=== PATIENT | male | born 1935 | race Caucasian/White ===

== ENCOUNTER 2016-08-29 13:00 | Inpatient (IN) | payer OTHER, MEDICARE ==
[~2016-08-29] VITALS: Ht 175.3 cm; Wt 46.0 kg
[~2016-08-29 13:00] MED LIST: CILO100T PO; GLIM1TAB PO; GLUCTAB PO; LISI-366 PO
[2016-08-29 13:15] VITALS: BP 121/65; PULSE 87; RESP 18; TEMP 98.8; O2SAT 97
[2016-08-29] MEDS ORDERED: DIATRIZOATE MEGLUM/DIATRIZOATE SOD 9 ML CUP ONE (13:46)
--- NOTE | 2016-08-29 13:47 | PD ---
HPI Chief Complaint: Neuro Symptoms/ Deficits Time Seen by Provider: 13:14 Travel History International Travel<30 days: No Contact w/Intl Traveler<30days: No Traveled to known affect area: No History of Present Illness HPI Patient is a 81-year-old male who presents the emergency department with complaint of weakness. Patient claims of generalized weakness, abdominal pain and diarrhea. Unclear how long these symptoms have been going on, patient is a poor historian. States that they have been going on at least more than one week. He denies any focal weakness. States that he isn't having difficulty ambulating as a result of his weakness. Patient lives in his own home with someone who is actually hospitalized here at the time. Patient states his pain is low in the abdomen and radiates throughout the back, crampy in nature. Associated diarrhea. No hematochezia. He denies any nausea or vomiting, fevers or chills. PFSH Past Medical History Cancer: No Cardiovascular Problems: Yes (PAD) High Cholesterol: Yes Coronary Artery Disease: Yes Diabetes: Yes Patient Takes Glucophage: Yes Glaucoma: No Hepatitis: Yes (A & B) Hiatal Hernia: No Hypertension: Yes Respiratory: Yes (COPD) Thyroid Disease: No Tetanus Vaccination: > 5 Years Past Surgical History Abdominal Surgery: Yes (WHIPPLE) Cholecystectomy: Yes Oral Surgery: Yes (T & A) Pacemaker: No Other Surgery: Yes Social History Alcohol Use: Yes ( DAILY) Tobacco Use: Yes (1-2 PPD) Substance Use: No Allergies-Medications (Allergen,Severity, Reaction): Coded Allergies: Sulfa (Unverified Allergy, Unknown, 08/29/16) Reported Meds & Prescriptions Reported Meds & Active Scripts Active Reported Pletal 100 Mg Tab (Cilostazol) 100 Mg Tab 100 Mg PO BID Lisinopril 40 Mg Tab 40 Mg PO DAILY Glimepiride 1 Mg Tab 1 Mg PO DAILY Glucophage (Metformin HCl) 500 Mg Tab 1,000 Mg PO BID Review of Systems Except as stated in HPI: all other systems reviewed are Neg Physical Exam Narrative GENERAL: Cachectic elderly male appearing older than stated age in no acute distress SKIN: Warm and dry. HEAD: Normocephalic. EYES: Pupils equal and round. No scleral icterus. No injection or drainage. ENT: No nasal bleeding or discharge. Mucous membranes dry NECK: Supple CARDIOVASCULAR: Regular rate and rhythm. No murmur appreciated. RESPIRATORY: No accessory muscle use. Clear to auscultation. Breath sounds equal bilaterally. GASTROINTESTINAL: Abdomen soft, all diffuse tenderness to palpation without rebound or guarding, nondistended. Scaphoid MUSCULOSKELETAL: Chronic venous stasis changes. No obvious deformity, no significant edema NEUROLOGICAL: Awake and alert. 4+ out of 5 strength throughout. Grossly nonfocal. Normal speech. PSYCHIATRIC: Appropriate mood and affect; insight and judgment normal. Data Data Last Documented VS Vital Signs Date Time Temp Pulse Resp B/P Pulse Ox O2 Delivery O2 Flow Rate FiO2 08/29/16 13:15 98.8 87 18 121/65 97 Orders Electrocardiogram (08/29/16 13:15) Complete Blood Count With Diff (08/29/16 13:15) Comprehensive Metabolic Panel (08/29/16 13:15) Lactic Acid Sepsis Protocol (08/29/16 13:15) Lipase (08/29/16 13:15) Troponin I (08/29/16 13:15) Urinalysis - C+S If Indicated (08/29/16 13:15) Blood Culture (08/29/16 13:15) Chest, Single Ap (08/29/16 13:15) Ecg Monitoring (08/29/16 13:15) Iv Access Insert/Monitor (08/29/16 13:15) Cath For Specimen (08/29/16 13:15) Oximetry (08/29/16 13:15) Ct Abd/Pel W Iv Contrast(Rout) (08/29/16 13:15) Oral Contrast - Adult (08/29/16 13:21) Diatrizoate Liq ( Gastroview Liq) (08/29/16 13:46) Sodium Chlor 0.9% 1000 Ml Inj (Ns 1000 M (08/29/16 14:00) Dextrose 50% In [place] (Vial) Inj (D50w (Vi (08/29/16 14:30) Potassium Chloride (Kcl) (08/29/16 14:45) Iohexol 350 Inj (Omnipaque 350 Inj) (08/29/16 15:35) Labs Laboratory Tests Test 08/29/16 08/29/16 13:10 15:40 White Blood Count 13.0 TH/MM3 Red Blood Count 3.76 MIL/MM3 Hemoglobin 12.2 GM/DL Hematocrit 36.9 % Mean Corpuscular Volume 98.1 FL Mean Corpuscular Hemoglobin 32.5 PG Mean Corpuscular Hemoglobin 33.2 % Concent Red Cell Distribution Width 13.9 % Platelet Count 101 TH/MM3 Mean Platelet Volume 12.1 FL Neutrophils (%) (Auto) 85.6 % Lymphocytes (%) (Auto) 7.0 % Monocytes (%) (Auto) 7.3 % Eosinophils (%) (Auto) 0.0 % Basophils (%) (Auto) 0.1 % Neutrophils # (Auto) 11.2 TH/MM3 Lymphocytes # (Auto) 0.9 TH/MM3 Monocytes # (Auto) 1.0 TH/MM3 Eosinophils # (Auto) 0.0 TH/MM3 Basophils # (Auto) 0.0 TH/MM3 CBC Comment AUTO DIFF Differential Total Cells 100 Counted Neutrophils % (Manual) 67 % Band Neutrophils % 22 % Lymphocytes % 6 % Monocytes % 5 % Neutrophils # (Manual) 11.6 TH/MM3 Differential Comment FINAL DIFF MANUAL Platelet Estimate LOW Platelet Morphology Comment NORMAL Red Cell Morphology Comment NORMAL Sodium Level 146 MEQ/L Potassium Level 2.6 MEQ/L Chloride Level 109 MEQ/L Carbon Dioxide Level 28.5 MEQ/L Anion Gap 9 MEQ/L Blood Urea Nitrogen 9 MG/DL Creatinine 0.72 MG/DL Estimat Glomerular Filtration 105 ML/MIN Rate Random Glucose 45 MG/DL Lactic Acid Level 1.9 mmol/L Calcium Level 7.5 MG/DL Total Bilirubin 0.5 MG/DL Aspartate Amino Transf 83 U/L (AST/SGOT) Alanine Aminotransferase 46 U/L (ALT/SGPT) Alkaline Phosphatase 173 U/L Troponin I 0.06 NG/ML Total Protein 5.1 GM/DL Albumin 2.2 GM/DL Lipase 22 U/L Urine Color YELLOW Urine Turbidity CLEAR Urine pH 5.0 Urine Specific [place] 1.030 Urine Protein NEG mg/dL Urine Glucose (UA) NEG mg/dL Urine Ketones NEG mg/dL Urine Occult Blood SMALL Urine Nitrite NEG Urine Bilirubin NEG Urine Urobilinogen LESS THAN 2.0 MG/DL Urine Leukocyte Esterase NEG Urine RBC 1 /hpf Urine WBC 3 /hpf Urine Squamous Epithelial <1 /hpf Cells Urine Hyaline Casts 1 /lpf Urine Mucus FEW /lpf Microscopic Urinalysis Comment CATH-CULT NOT IND MDM Medical Decision Making Medical Screen Exam Complete: Yes Emergency Medical Condition: Yes Medical Record Reviewed: Yes Differential Diagnosis 81-year-old male with history of COPD, DM here with complaint of generalized abdominal pain, diarrhea and generalized weakness for at least the last week. Cachectic, scaphoid abdomen. Patient is chronically ill-appearing. Differential includes failure to thrive, dehydration, elect to light abnormality , pancreatitis, hepatobiliary pathology, infectious diarrhea, colitis, diverticulitis, UTI Narrative Course Placed on monitor, IV established and blood obtained. A twelve-lead EKG shows atrial fibrillation with left axis deviation. No notable ST abnormalities, normal intervals. Wavy baseline, patient has resting Baseline tremor which makes it difficult to obtain quality EKG. Patient given 1 L normal saline bolus. CBC, CMP, lipase, lactate, troponin, urinalysis, blood cultures obtained and notable for CBC 13.0, platelets 101. Patient has bandemia with neutrophils 22%. Hypokalemia potassium 2.6. Patient was replaced with 60 mEq orally. Glucose low at 45 and given D50. Troponin slightly elevated 0.06. Lactate and urine normal. CT abdomen and pelvis showed postsurgical changes status post Whipple with pneumobilia. Nonspecific bowel gas pattern may represent ileus or gastroenteritis. Status post cholecystectomy. Diffuse ascitic fluid and anasarca. Chest x-ray unremarkable. Given his bandemia with elevated troponin and patient will be admitted for further management. Diagnosis Primary Impression: Bandemia Additional Impressions: Elevated troponin Hypokalemia Hypoglycemia Generalized weakness Failure to thrive in adult Admitting Information Admitting Physician Requests: Admit Alisson Rios MD Aug 29, 2016 13:46
[2016-08-29 13:49] LABS: AUTOMATED NEUTROPHIL # 11.2 TH/MM3 (1.8-7.7); BASOPHIL % 0.1 % (0.0-2.0); HEMATOCRIT 36.9 % (39.0-51.0); LYMPHOCYTE # 0.9 TH/MM3 (1.0-4.8); MEAN CELL VOLUME 98.1 FL (80.0-100.0); MEAN CORPUSCULAR HEMOGLOBIN 32.5 PG (27.0-34.0); MEAN CORPUSCULAR HGB CONC 33.2 % (32.0-36.0); MONO % 7.3 % (0.0-8.0); NEUT % 85.6 % (16.0-70.0); PLATELET COUNT 101 TH/MM3 (150-450); RED BLOOD COUNT 3.76 MIL/MM3 (4.50-5.90); RED CELL DISTRIBUTION WIDTH 13.9 % (11.6-17.2)
[2016-08-29 13:51] LABS: HEMO FLAGS AUTO DIFF
[2016-08-29] MEDS ORDERED: SODIUM CHLOR 0.9% 1000 ML INJ 1,000 ML IV ONE (14:00)
--- NOTE | 2016-08-29 14:05 | RADRPT ---
EXAM DATE/TIME: 08/29/2016 13:29 [facility] COMPARISON: CHEST SINGLE AP, May 28, 2012, 18:59. INDICATIONS : Shortness of breath. Cough. MEDICAL HISTORY : None. SURGICAL HISTORY : None. ENCOUNTER: Initial ACUITY: 1 day PAIN SCORE: 0/10 LOCATION: Bilateral chest FINDINGS: A single view of the chest demonstrates the lungs to be symmetrically aerated without evidence of mas s, infiltrate or effusion. The cardiomediastinal contours are unremarkable. Atherosclerotic calcifi cations are present in the aorta. Osseous structures are intact. CONCLUSION: No acute disease. There is no evidence of pneumonia. Héctor Reardon MD on August 29, 2016 at 14:02 Board Certified Radiologist. This report was verified electronically.
[2016-08-29 14:20] LABS: ALKALINE PHOSPHATASE 173 U/L (45-117); ALT (GPT) 46 U/L (12-78); ANION GAP 9 MEQ/L (5-15); AST (GOT) 83 U/L (15-37); BICARBONATE 28.5 MEQ/L (21.0-32.0); BLOOD UREA NITROGEN 9 MG/DL (7-18); CHLORIDE 109 MEQ/L (98-107); GLOMERULAR FILTRATION RATE 105 ML/MIN (>89); SODIUM (NA) 146 MEQ/L (136-145); TOTAL BILIRUBIN ADULT 0.5 MG/DL (0.2-1.0)
[2016-08-29 14:22] LABS: BANDS 22 % (0-6); NEUTROPHIL # MANUAL DIFF 11.6 TH/MM3 (1.8-7.7); PLATELET ESTIMATE SMEAR LOW (NORMAL); PLATELET MORPHOLOGY NORMAL (NORMAL); POLYS (SEG NEUTROPHILS) 67 % (16-70); SCAN/DIFF FINAL DIFF MANUAL; WBC DIFF SAMPLE 100
[2016-08-29 14:29] LABS: POTASSIUM 2.6 MEQ/L (3.5-5.1)
[2016-08-29] MEDS ORDERED: DEXTROSE 50% IN WATER 50 ML VIAL(D50) IV PUSH ONE (14:30)
[2016-08-29] MEDS ORDERED: POTASSIUM CHLORIDE 20 MEQ CONTROLLED RELEASE TAB PO ONE (14:45)
[2016-08-29] MEDS ORDERED: IOHEXOL 350 MG/ML 10 ML VIAL (for RAD DIAG) IV ONE (15:35)
--- NOTE | 2016-08-29 15:41 | RADRPT ---
EXAM DATE/TIME: 08/29/2016 15:17 [facility] COMPARISON: No previous studies available for comparison. INDICATIONS : Abdomen pain and diarrhea IV CONTRAST: 95 cc Omnipaque 350 (iohexol) IV ORAL CONTRAST: Prescribed oral contrast ingested. RADIATION DOSE: 9.96 CTDIvol (mGy) MEDICAL HISTORY : Hypertension. Diabetes mellitus type 1. Chronic obstructive pulmonary disease. SURGICAL HISTORY : Cholecystectomy. Whipple procedure. ENCOUNTER: Initial ACUITY: 2 days PAIN SCALE: 0/10 LOCATION: Abdomen TECHNIQUE: Volumetric scanning of the abdomen and pelvis was performed. Using automated exposure control and ad justment of the mA and/or kV according to patient size, radiation dose was kept as low as reasonably achievable to obtain optimal diagnostic quality images. FINDINGS: LOWER LUNGS: The visualized lower lungs are clear. LIVER: The patient is status post cholecystectomy with surgical clips in the region of the abiola hepatis. Pn eumobilia is present in the central biliary system and left ducts. The portal venous system is patent . There is diffuse fatty infiltration of liver with no focal mass. There is diffuse ascites and anasa rca. SPLEEN: Normal size without lesion. PANCREAS: There are postsurgical changes status post Whipple procedure with no distinct pancreatic tissue which is identifiable. KIDNEYS: Normal in size and shape. There is no mass, stone or hydronephrosis. ADRENAL GLANDS: Within normal limits. VASCULAR: There is no aortic aneurysm. BOWEL/MESENTERY: There is diffuse ascitic fluid throughout the abdomen and pelvis. There is a nonspecific bowel gas pa ttern with multiple loops of nondilated air-containing small bowel with several air fluid levels. The re is borderline dilatation of several loops of small bowel in the right abdomen. There is no free ai r. ABDOMINAL WALL: Within normal limits. RETROPERITONEUM: There is no lymphadenopathy. BLADDER: No wall thickening or mass. REPRODUCTIVE: Within normal limits. INGUINAL: There is no lymphadenopathy or hernia. MUSCULOSKELETAL: Within normal limits for patient age. CONCLUSION: 1. Postsurgical changes status post Whipple procedure with pneumobilia. The pancreas is not well-visu alized. 2. Nonspecific bowel gas pattern which may represent an ileus or gastroenteritis. Obstruction is less likely. 3. Status post cholecystectomy. 4. Diffuse ascitic fluid and anasarca. 5. Fatty infiltration of the liver. Héctor Reardon MD on August 29, 2016 at 15:35 Board Certified Radiologist. This report was verified electronically.
[2016-08-29 15:56] LABS: BLOOD, URINE SMALL (NEG); GLUCOSE,URINE NEG (NEG); HYALINE CAST, URINE 1 /lpf (RARE); KETONE, URINE NEG (NEG); MUCUS URINE FEW /lpf (OCC); NITRITE,URINE NEG (NEG); SQUAMOUS EPITHELIAL CELL URINE <1 /hpf (0-5); URINE COLOR YELLOW (YELLW/STRAW)
[2016-08-29 15:57] LABS: COMMENT (UR) CATH-CULT NOT IND; CULTURE IF INDICATED CATH CULTURE NOT IND
[2016-08-29 16:00] VITALS: BP 128/74; PULSE 80; RESP 20; O2SAT 96
[2016-08-29] MEDS ORDERED: GLUCAGON 1 MG/ML VIAL OTHER PRN (16:30)
[2016-08-29] MEDS ORDERED: POTASSIUM CHLOR 20 MEQ PREMIX 100 ML IV ONE (16:30)
[2016-08-29] MEDS ORDERED: ONDANSETRON HCL 4 MG/2 ML VIAL IV PUSH PRN (16:30)
[2016-08-29] MEDS ORDERED: DEXTROSE 50% IN WATER 50 ML VIAL(D50) IV PUSH PRN (16:30)
[2016-08-29 17:00] VITALS: BP 145/93; PULSE 74; RESP 18; O2SAT 97
[2016-08-29 18:00] VITALS: BP 123/79; PULSE 65; RESP 18; O2SAT 97
[2016-08-29 20:20] VITALS: BP 152/82; PULSE 78; RESP 18; TEMP 98.5; O2SAT 96
[2016-08-29] MEDS ORDERED: INSULIN ASPART SUPPLEMENTAL SCALE SQ SCH (21:00)
[2016-08-29 21:15] VITALS: PULSE 69
--- NOTE | 2016-08-29 22:42 | HHI.HP ---
[facility] Primary [facility] Physician No Primary Care Physician Admission Diagnosis bandemia, elevated troponin Diagnoses: Chief Complaint: abdominal pain, black stool Travel History International Travel<30 Days: No Contact w/Intl Traveler <30 Da: No Traveled to Known Affected Are: No History of Present Illness History from patient, ER physician notes, and review of medical records. Patient is somewhat of a poor historian. He is awake, alert, and oriented. However he does seen to think in tangential form and would suite off from the topic of conversation. It took me quite a while to get information regarding why he is here. He finally tells me that he was so much in pain and that he was moaning in his apartment and his roommate from upstairs heard him and came to check on him. The roommate then decided to call ambulance. When asked about where his pain is , patient stated it was everywhere. He then pointed and sustained he does have most pain in his right lower ribs areas. Also reports of pain in his abdomen diffusely. On specific questioning, patient denies any chest pain/palpitations/shortness of breath/focal weakness. He even denies weight loss. However he is extremely cachectic with MUSCLE wasting. He states he was called Zonder in grade school and he has always been skinny. He does reports of some nausea and vomiting and past few days. He did say that his vomitus was coffee-ground in color. However he is unsure how many times he vomited. Again, he stated he also had diarrhea. He states he was having diarrhea almost every 2 hours initially. Then yesterday, he states that he started having " cold black stool". Denies fever. Denies any burning on urination or pain on urination. Denies any recent falls or syncopal episodes. Patient reports of history of diabetes, hypertension, chronic smoker, and hepatitis a and B. He also reports of history of rheumatic fever as a child. In the emergency room, patient was noted to have severe electrolytes abnormalities with low potassium. His blood sugar was also 45. Review of Systems 12 point review of system is obtained and negative apart from what is mentioned in HPI. Past Family Social History Past Medical History Hypertension Diabetes COPD PAD COPD Hepatitis A and B Rheumatic fever as a child Past Surgical History Whipple procedure as per chart Reported Medications Patient's medications listed on EMRreviewed Allergies: Coded Allergies: Sulfa (Unverified Allergy, Unknown, 08/29/16) Family History Stated that his father lived to be 99 years old 9 months and 9 days old. States his mom had some kind of medical problem but is not sure what Social History Smokes about a pack a day. Denies any alcohol abuse or drug abuse. Physical Exam Vital Signs Vital Signs Date Time Temp Pulse Resp B/P Pulse Ox O2 Delivery O2 Flow Rate FiO2 08/29/16 20:20 98.5 78 18 152/82 96 08/29/16 18:00 65 18 123/79 97 Room Air 08/29/16 17:00 74 18 145/93 97 Room Air 08/29/16 16:00 80 20 128/74 96 08/29/16 13:15 98.8 87 18 121/65 97 Physical Exam GENERAL: This is a thin cachectic gentleman, not in acute distress. Very pleasant. Tangential thoughts and talk. SKIN: Bilateral lower extremity skin abrasions/superficial HEAD: Atraumatic. Normocephalic. No temporal or scalp tenderness. EYES: No scleral icterus. No injection or drainage. ENT: Nose without bleeding, purulent drainage or septal hematoma. Airway patent. NECK: Trachea midline. No JVD. Supple, nontender, no meningeal signs. CARDIOVASCULAR: Regular rate and rhythm without murmurs, gallops, or rubs. RESPIRATORY: Clear to auscultation. Breath sounds equal bilaterally. No wheezes , rales, or rhonchi. GASTROINTESTINAL: Abdomen soft, distended, no rebound.No guarding. MUSCULOSKELETAL: Extremities without clubbing, cyanosis, or edema. No calf tenderness. Neuro: Awake, alert, oriented. Normal speech. Moving all 4 limbs. Laboratory Laboratory Tests Test 08/29/16 08/29/16 13:10 15:40 White Blood Count 13.0 Red Blood Count 3.76 Hemoglobin 12.2 Hematocrit 36.9 Mean Corpuscular Volume 98.1 Mean Corpuscular Hemoglobin 32.5 Mean Corpuscular Hemoglobin 33.2 Concent Red Cell Distribution Width 13.9 Platelet Count 101 Mean Platelet Volume 12.1 Neutrophils (%) (Auto) 85.6 Lymphocytes (%) (Auto) 7.0 Monocytes (%) (Auto) 7.3 Eosinophils (%) (Auto) 0.0 Basophils (%) (Auto) 0.1 Neutrophils # (Auto) 11.2 Lymphocytes # (Auto) 0.9 Monocytes # (Auto) 1.0 Eosinophils # (Auto) 0.0 Basophils # (Auto) 0.0 CBC Comment AUTO DIFF Differential Total Cells 100 Counted Neutrophils % (Manual) 67 Band Neutrophils % 22 Lymphocytes % 6 Monocytes % 5 Neutrophils # (Manual) 11.6 Differential Comment FINAL DIFF MANUAL Platelet Estimate LOW Platelet Morphology Comment NORMAL Red Cell Morphology Comment NORMAL Sodium Level 146 Potassium Level 2.6 Chloride Level 109 Carbon Dioxide Level 28.5 Anion Gap 9 Blood Urea Nitrogen 9 Creatinine 0.72 Estimat Glomerular Filtration 105 Rate Random Glucose 45 Lactic Acid Level 1.9 Calcium Level 7.5 Total Bilirubin 0.5 Aspartate Amino Transf 83 (AST/SGOT) Alanine Aminotransferase 46 (ALT/SGPT) Alkaline Phosphatase 173 Troponin I 0.06 Total Protein 5.1 Albumin 2.2 Lipase 22 Urine Color YELLOW Urine Turbidity CLEAR Urine pH 5.0 Urine Specific [place] 1.030 Urine Protein NEG Urine Glucose (UA) NEG Urine Ketones NEG Urine Occult Blood SMALL Urine Nitrite NEG Urine Bilirubin NEG Urine Urobilinogen LESS THAN 2.0 Urine Leukocyte Esterase NEG Urine RBC 1 Urine WBC 3 Urine Squamous Epithelial <1 Cells Urine Hyaline Casts 1 Urine Mucus FEW Microscopic Urinalysis Comment CATH-CULT NOT IND Date/Time Procedure Status Source Growth 08/29/16 13:10 Aerobic Blood Culture Received Blood Peripheral Pending 08/29/16 13:10 Anaerobic Blood Culture Received Blood Peripheral Pending Result Diagram: 08/29/16 1310 08/29/16 1310 Imaging Last 48 hours Impressions Chest X-Ray 08/29/16 1315 Signed Impressions: Service Date/Time: Monday, August 29, 2016 13:29 - CONCLUSION: No acute disease. There is no evidence of pneumonia. Héctor Reardon MD Abdomen/Pelvis CT 08/29/16 1315 Signed Impressions: Service Date/Time: Monday, August 29, 2016 15:17 - CONCLUSION: 1. Postsurgical changes status post Whipple procedure with pneumobilia. The pancreas is not well-visualized. 2. Nonspecific bowel gas pattern which may represent an ileus or gastroenteritis. Obstruction is less likely. 3. Status post cholecystectomy. 4. Diffuse ascitic fluid and anasarca. 5. Fatty infiltration of the liver. Héctor Reardon MD Assessment and Plan Problem List: (1) Failure to thrive in adult ICD Code: R62.7 Status: Acute (2) Bandemia ICD Code: D72.825 Status: Acute (3) Hypokalemia ICD Code: E87.6 Status: Acute (4) Hypoglycemia ICD Code: E16.2 Status: Acute (5) Generalized weakness ICD Code: R53.1 Status: Acute (6) Elevated troponin ICD Code: R74.8 Status: Acute Assessment and Plan Impression: Severe hypokalemia Severe hypoglycemia Failure to thrive Abdominal pain/likely due to ileus Possible GI bleedpatient reporting melena and coffee-ground emesis although seems to be having it for just once. Elevated troponinnonspecific. We will trend. Plan: Replaced potassium in ER. Repeat in a.m. Also check magnesium levels. We'll place accordingly. Serial hemoglobin and hematocrit. Protonix IV every 12 hours. Abdomen and pelvis CTpersonally reviewed. No evidence of obstruction. Has ileus patent. Status post Whipple procedure. Monitor fingersticks every hour until greater than 1002. Start patient on D5 normal saline at 84 cc per hour. Nothing by mouth if hgb/hct drops and evidence of GI bleed. DVTprophylaxis on lovenox GI prophylaxis on pantoprazole Discussed Condition With patient, nursing staff Physician Certification 2 Midnight Certification Type: Admission for Inpatient Services Order for Inpatient Services The services are ordered in accordance with Medicare regulations or non- Medicare payer requirements, as applicable. In the case of services not specified as inpatient-only, they are appropriately provided as inpatient services in accordance with the 2-midnight benchmark. Estimated LOS (days): 4 days is the estimated time the patient will need to remain in the hospital, assuming treatment plan goals are met and no additional complications. Post-Hospital Plan: Not yet determined Otto Whitlock MD Aug 29, 2016 22:42
[2016-08-29 23:54] LABS: AUTOMATED NEUTROPHIL # 10.3 TH/MM3 (1.8-7.7); BASOPHIL % 0.1 % (0.0-2.0); HEMATOCRIT 36.5 % (39.0-51.0); LYMPHOCYTE # 2.1 TH/MM3 (1.0-4.8); MEAN CELL VOLUME 97.8 FL (80.0-100.0); MEAN CORPUSCULAR HEMOGLOBIN 32.6 PG (27.0-34.0); MEAN CORPUSCULAR HGB CONC 33.4 % (32.0-36.0); MONO % 6.5 % (0.0-8.0); NEUT % 77.4 % (16.0-70.0); PLATELET COUNT 75 TH/MM3 (150-450); RED BLOOD COUNT 3.74 MIL/MM3 (4.50-5.90); RED CELL DISTRIBUTION WIDTH 14.2 % (11.6-17.2); WHITE BLOOD COUNT 13.3 TH/MM3 (4.0-11.0)
[2016-08-30] VITALS (7 sets, daily range): BP systolic 115–162; BP diastolic 64–85; PULSE 60–92; RESP 14–20; TEMP 97.7–99.1; O2SAT 96–98
[2016-08-30 00:05] LABS: HEMO FLAGS AUTO DIFF
[2016-08-30] MEDS: POTASSIUM CHLORIDE INJ 30 MEQ in DEXT 5%-NACL 0.9% 1000 ML INJ 1,000 ML IV SCH ×2 (00:12→23:32)
[2016-08-30 00:58] LABS: PLATELET ESTIMATE SMEAR NORMAL (NORMAL); PLATELET MORPHOLOGY NORMAL (NORMAL); SCAN/DIFF AUTO DIFF CONFIRMED; TOXIC VACUOLATION PRESENT (NONE SEEN)
[2016-08-30 01:27] LABS: MAGNESIUM 1.4 MG/DL (1.5-2.5); POTASSIUM 3.2 MEQ/L (3.5-5.1)
[2016-08-30] MEDS ORDERED: POTASSIUM CHLORIDE 20 MEQ CONTROLLED RELEASE TAB PO ONE (04:15)
[2016-08-30] MEDS: MAGNESIUM SULFATE 1 GM PREMIX 100 ML IV SCH ×2 (04:51→06:00)
[2016-08-30] MEDS: POTASSIUM CHLOR 20 MEQ PREMIX 100 ML IV SCH ×2 (04:51→06:35)
[2016-08-30] MEDS ORDERED: ENOXAPARIN SODIUM 40 MG/0.4 ML SYRINGE SQ SCH (09:00)
[2016-08-30] MEDS ORDERED: INFLUENZA VIRUS VACCINE (QUADRIVALENT) 0.5 ML SYR IM ONE (10:00)
[2016-08-30 10:33] LABS: AUTOMATED NEUTROPHIL # 9.6 TH/MM3 (1.8-7.7); BASOPHIL % 0.2 % (0.0-2.0); EOSINOPHIL % 0.1 % (0.0-4.0); HEMATOCRIT 34.8 % (39.0-51.0); LYMPH % 10.4 % (9.0-44.0); LYMPHOCYTE # 1.2 TH/MM3 (1.0-4.8); MEAN CELL VOLUME 97.3 FL (80.0-100.0); MEAN CORPUSCULAR HEMOGLOBIN 32.9 PG (27.0-34.0); MEAN CORPUSCULAR HGB CONC 33.9 % (32.0-36.0); MONO % 7.7 % (0.0-8.0); NEUT % 81.6 % (16.0-70.0); PLATELET COUNT 66 TH/MM3 (150-450); RED BLOOD COUNT 3.57 MIL/MM3 (4.50-5.90); RED CELL DISTRIBUTION WIDTH 14.3 % (11.6-17.2); WHITE BLOOD COUNT 11.7 TH/MM3 (4.0-11.0)
[2016-08-30 10:36] LABS: HEMO FLAGS AUTO DIFF
[2016-08-30 10:45] LABS: POTASSIUM 4.1 MEQ/L (3.5-5.1)
--- NOTE | 2016-08-30 11:17 | HHI.PR ---
Subjective Remarks in no acute distress. denies pain. d/w the RN and no acute issues over night. Objective Vitals Vital Signs Date Time Temp Pulse Resp B/P Pulse Ox O2 Delivery O2 Flow Rate FiO2 08/30/16 08:00 99.1 80 18 116/64 97 08/30/16 04:00 98.1 72 18 148/76 98 08/30/16 00:03 98.2 92 20 162/85 97 08/29/16 21:15 69 08/29/16 20:20 98.5 78 18 152/82 96 08/29/16 18:00 65 18 123/79 97 Room Air 08/29/16 17:00 74 18 145/93 97 Room Air 08/29/16 16:00 80 20 128/74 96 08/29/16 13:15 98.8 87 18 121/65 97 I/O 08/29/16 08/29/16 08/29/16 08/30/16 08/30/16 08/30/16 07:00 15:00 23:00 07:00 15:00 23:00 Intake Total 220 ml 200 ml Output Total 125 ml 125 ml Balance 95 ml 75 ml Intake Oral 220 ml 200 ml Output Urine Total 125 ml 125 ml # Voids 1 2 Result Diagram: 08/30/16 0910 08/30/16 0910 Imaging Last Impressions Chest X-Ray 08/29/161314 Signed Impressions: Service Date/Time: Monday, August 29, 2016 13:29 - CONCLUSION: No acute disease. There is no evidence of pneumonia. Héctor Reardon MD Abdomen/Pelvis CT 08/29/16 1315 Signed Impressions: Service Date/Time: Monday, August 29, 2016 15:17 - CONCLUSION: 1. Postsurgical changes status post Whipple procedure with pneumobilia. The pancreas is not well-visualized. 2. Nonspecific bowel gas pattern which may represent an ileus or gastroenteritis. Obstruction is less likely. 3. Status post cholecystectomy. 4. Diffuse ascitic fluid and anasarca. 5. Fatty infiltration of the liver. Héctor Reardon MD Objective Remarks GENERAL: somewhat cachectic, in no apparent distress. CARDIOVASCULAR: Regular rate and regular rhythm without murmurs, gallops, or rubs. RESPIRATORY: Clear to auscultation. Breath sounds equal bilaterally. No wheezes , rales, or rhonchi. GASTROINTESTINAL: Abdomen soft, non-tender, nondistended. Normal, active bowel sounds MUSCULOSKELETAL: Extremities without clubbing, cyanosis, or edema. NEURO: Alert & Oriented x4 to person, place, time, situation. Moves all ext x4 skin; skin laceration noted on the right leg Procedures none Medications and IVs Current Medications Diatrizoate Meglum/ Diatrizoate Sod 18 ml 18 ml STK-MED ONCE .ROUTE Last administered on 08/29/16 13:46; Start 08/29/16 at 13:46; Stop 08/29/16 at 13:47 ; Status DC Sodium Chloride (NS 1000 ml Inj) 1,000 ml @ 999 mls/hr BOLUS ONCE IV Last administered on 08/29/16 13:54; Start 08/29/16 at 14:00; Stop 08/29/16 at 15:00 ; Status DC Dextrose (D50w (Vial) Inj) 25 ml ONCE ONCE IV PUSH Last administered on 14:30; Start 08/29/16 at 14:30; Stop 08/29/16 at 14:31; Status DC Potassium Chloride (KCl) 60 meq ONCE ONCE PO Last administered on 08/29/16 14 :45; Start 08/29/16 at 14:45; Stop 08/29/16 at 14:46; Status DC Iohexol 95 ml 95 ml STK-MED ONCE IV Last administered on 08/29/16 15:35; Start 08/29/16 at 15:35; Stop 08/29/16 at 15:36; Status DC Potassium Chloride (KCl 20 Meq Premix Inj) 100 ml @ 50 mls/hr BOLUS ONCE IV Last administered on 08/29/16 17:03; Start 08/29/16 at 16:30; Stop 08/29/16 at 18:29; Status DC Dextrose (D50w (Vial) Inj) 25 ml UNSCH PRN IV PUSH HYPOGLYCEMIA-SEE COMMENTS; Start 08/29/16 at 16:30 Glucagon (Glucagon Inj) 1 mg UNSCH PRN OTHER HYPOGLYCEMIA-SEE COMMENTS; Start 08/29/16 at 16:30 Insulin Aspart (NovoLOG SUPPLEMENTAL SCALE) 1 ACHS SLIDING SCALE SQ ; Start at 21:00; Stop 08/29/16 at 21:00; Status DC Acetaminophen (Tylenol) 650 mg Q4H PRN PO FEVER/ PAIN; Start 08/29/16 at 16:30 Ondansetron HCl (Zofran Inj) 4 mg Q8HR PRN IV PUSH NAUSEA; Start 08/29/16 at 16 :30 Influenza Virus Vaccine 0.5 ml 0.5 ml ONCE ONCE IM ; Start 08/30/16 at 10:00; Stop 08/30/16 at 10:01; Status DC Potassium Chloride 30 meq/ Dextrose/Sodium Chloride 1,015 ml @ 42 mls/hr Q24H IV Last administered on 08/30/16 00:12; Start 08/29/16 at 23:00 Magnesium Sulfate/ Dextrose 100 ml @ 100 mls/hr Q1H IV Last administered on 06:00; Start 08/30/16 at 04:15; Stop 08/30/16 at 06:14; Status DC Potassium Chloride (KCl 20 Meq Premix Inj) 100 ml @ 50 mls/hr Q2H IV Last administered on 08/30/16 06:35; Start 08/30/16 at 04:15; Stop 08/30/16 at 08:14 ; Status DC Potassium Chloride (KCl) 40 meq ONCE ONCE PO Last administered on 08/30/16 04 :51; Start 08/30/16 at 04:15; Stop 08/30/16 at 04:30; Status DC Enoxaparin Sodium (Lovenox Inj) 40 mg Q24H SQ Last administered on 08/30/16 08 :23; Start 08/30/16 at 09:00 A/P Assessment and Plan A/P Severe hypokalemia- resolved diabetes mellitus with hypoglycemia- resolved; will change the IV fluid soon if blood sugar remains stable. Failure to thrive; will consult deicer repairer consult PT and case management Elevated troponinnonspecific. thrombocytopenia- will monitor- hold lovenox for now Jessica Cabral MD Aug 30, 2016 11:17
[2016-08-30 11:37] LABS: PLATELET ESTIMATE SMEAR LOW (NORMAL); PLATELET MORPHOLOGY NORMAL (NORMAL); SCAN/DIFF AUTO DIFF CONFIRMED
[2016-08-30 12:08] LABS: CALCIUM-PROTEIN CORRECTED 8.8 MG/DL (8.5-10.1)
--- NOTE | 2016-08-30 23:07 | EKG ---
Date Performed: 08/29/2016 Time Performed: 13:29:26 PTAGE: 81 years EKG: Irregular rhythm Possible atrial fibrillation PVC Electrical interferences ABNORMAL ECG INT ERPRETATION BASED ON A DEFAULT AGE OF 39 YEARS PREVIOUS TRACING : 08/29/2016 13.28 DOCTOR: Leah Cadet Interpretating Date/Time 08/30/2016 23:02:07
[2016-08-31] VITALS (7 sets, daily range): BP systolic 111–143; BP diastolic 66–81; PULSE 64–77; RESP 18–20; TEMP 97.1–97.9; O2SAT 92–96
[2016-08-31] MEDS: ACETAMINOPHEN 325 MG TAB PO PRN ×2 (05:22→20:39)
[2016-08-31 06:14] LABS: AUTOMATED NEUTROPHIL # 6.6 TH/MM3 (1.8-7.7); BASOPHIL % 0.3 % (0.0-2.0); EOSINOPHIL % 0.3 % (0.0-4.0); HEMATOCRIT 35.9 % (39.0-51.0); LYMPH % 15.7 % (9.0-44.0); LYMPHOCYTE # 1.4 TH/MM3 (1.0-4.8); MEAN CELL VOLUME 98.4 FL (80.0-100.0); MEAN CORPUSCULAR HEMOGLOBIN 34.1 PG (27.0-34.0); MEAN CORPUSCULAR HGB CONC 34.6 % (32.0-36.0); MONO % 6.9 % (0.0-8.0); NEUT % 76.8 % (16.0-70.0); PLATELET COUNT 66 TH/MM3 (150-450); RED BLOOD COUNT 3.65 MIL/MM3 (4.50-5.90); RED CELL DISTRIBUTION WIDTH 14.1 % (11.6-17.2); WHITE BLOOD COUNT 8.7 TH/MM3 (4.0-11.0)
[2016-08-31 06:20] LABS: HEMO FLAGS AUTO DIFF
[2016-08-31 06:42] LABS: BICARBONATE 32.2 MEQ/L (21.0-32.0); MAGNESIUM 1.8 MG/DL (1.5-2.5)
[2016-08-31 08:04] LABS: PLATELET ESTIMATE SMEAR LOW (NORMAL); PLATELET MORPHOLOGY ENLARGED (NORMAL); SCAN/DIFF AUTO DIFF CONFIRMED
--- NOTE | 2016-08-31 12:35 | HHI.PR ---
Subjective Remarks in no acute distress. denies pain. no new complaints. Objective Vitals Vital Signs Date Time Temp Pulse Resp B/P Pulse Ox O2 Delivery O2 Flow Rate FiO2 08/31/16 08:00 97.3 64 18 111/66 92 08/31/16 07:15 Room Air 08/31/16 04:00 97.2 73 18 143/81 94 08/31/16 04:00 Room Air 08/31/16 00:00 Room Air 08/31/16 00:00 97.8 64 18 140/77 94 08/30/16 20:10 Room Air 08/30/16 20:10 60 08/30/16 20:10 97.7 68 16 128/70 96 08/30/16 19:58 98.1 78 14 115/70 97 08/30/16 16:00 98.3 75 18 139/80 97 I/O 08/30/16 08/30/16 08/30/16 08/31/16 08/31/16 08/31/16 07:00 15:00 23:00 07:00 15:00 23:00 Intake Total 200 ml 600 ml 762 ml 311 ml 120 ml Output Total 125 ml 300 ml Balance 75 ml 600 ml 762 ml 311 ml -180 ml Intake Oral 200 ml 600 ml 240 ml 120 ml IV Total 522 ml 311 ml Output Urine Total 125 ml 300 ml # Voids 2 2 2 # Bowel Movements 1 0 0 Result Diagram: 08/31/16 0542 08/31/16 0542 Imaging Last Impressions Chest X-Ray 08/29/165 Signed Impressions: Service Date/Time: Monday, August 29, 2016 13:29 - CONCLUSION: No acute disease. There is no evidence of pneumonia. Héctor Reardon MD Abdomen/Pelvis CT 08/29/16 1315 Signed Impressions: Service Date/Time: Monday, August 29, 2016 15:17 - CONCLUSION: 1. Postsurgical changes status post Whipple procedure with pneumobilia. The pancreas is not well-visualized. 2. Nonspecific bowel gas pattern which may represent an ileus or gastroenteritis. Obstruction is less likely. 3. Status post cholecystectomy. 4. Diffuse ascitic fluid and anasarca. 5. Fatty infiltration of the liver. Héctor Reardon MD Objective Remarks GENERAL: somewhat cachectic, in no apparent distress. CARDIOVASCULAR: Regular rate and regular rhythm without murmurs, gallops, or rubs. RESPIRATORY: Clear to auscultation. Breath sounds equal bilaterally. No wheezes , rales, or rhonchi. GASTROINTESTINAL: Abdomen soft, non-tender, nondistended. Normal, active bowel sounds MUSCULOSKELETAL: Extremities without clubbing, cyanosis, or edema. NEURO: Alert & Oriented x4 to person, place, time, situation. Moves all ext x4 skin; skin laceration noted on the right leg Procedures none Medications and IVs Current Medications Diatrizoate Meglum/ Diatrizoate Sod 18 ml 18 ml STK-MED ONCE .ROUTE Last administered on 08/29/16 13:46; Start 08/29/16 at 13:46; Stop 08/29/16 at 13:47 ; Status DC Sodium Chloride (NS 1000 ml Inj) 1,000 ml @ 999 mls/hr BOLUS ONCE IV Last administered on 08/29/16 13:54; Start 08/29/16 at 14:00; Stop 08/29/16 at 15:00 ; Status DC Dextrose (D50w (Vial) Inj) 25 ml ONCE ONCE IV PUSH Last administered on 14:30; Start 08/29/16 at 14:30; Stop 08/29/16 at 14:31; Status DC Potassium Chloride (KCl) 60 meq ONCE ONCE PO Last administered on 08/29/16 14 :45; Start 08/29/16 at 14:45; Stop 08/29/16 at 14:46; Status DC Iohexol 95 ml 95 ml STK-MED ONCE IV Last administered on 08/29/16 15:35; Start 08/29/16 at 15:35; Stop 08/29/16 at 15:36; Status DC Potassium Chloride (KCl 20 Meq Premix Inj) 100 ml @ 50 mls/hr BOLUS ONCE IV Last administered on 08/29/16 17:03; Start 08/29/16 at 16:30; Stop 08/29/16 at 18:29; Status DC Dextrose (D50w (Vial) Inj) 25 ml UNSCH PRN IV PUSH HYPOGLYCEMIA-SEE COMMENTS; Start 08/29/16 at 16:30 Glucagon (Glucagon Inj) 1 mg UNSCH PRN OTHER HYPOGLYCEMIA-SEE COMMENTS; Start 08/29/16 at 16:30 Insulin Aspart (NovoLOG SUPPLEMENTAL SCALE) 1 ACHS SLIDING SCALE SQ ; Start at 21:00; Stop 08/29/16 at 21:00; Status DC Acetaminophen (Tylenol) 650 mg Q4H PRN PO FEVER/ PAIN Last administered on 08/31 05:22; Start 08/29/16 at 16:30 Ondansetron HCl (Zofran Inj) 4 mg Q8HR PRN IV PUSH NAUSEA; Start 08/29/16 at 16 :30 Influenza Virus Vaccine 0.5 ml 0.5 ml ONCE ONCE IM ; Start 08/30/16 at 10:00; Stop 08/30/16 at 10:01; Status DC Potassium Chloride 30 meq/ Dextrose/Sodium Chloride 1,015 ml @ 42 mls/hr Q24H IV Last administered on 08/30/16 23:32; Start 08/29/16 at 23:00 Magnesium Sulfate/ Dextrose 100 ml @ 100 mls/hr Q1H IV Last administered on 06:00; Start 08/30/16 at 04:15; Stop 08/30/16 at 06:14; Status DC Potassium Chloride (KCl 20 Meq Premix Inj) 100 ml @ 50 mls/hr Q2H IV Last administered on 08/30/16 06:35; Start 08/30/16 at 04:15; Stop 08/30/16 at 08:14 ; Status DC Potassium Chloride (KCl) 40 meq ONCE ONCE PO Last administered on 08/30/16 04 :51; Start 08/30/16 at 04:15; Stop 08/30/16 at 04:30; Status DC Enoxaparin Sodium (Lovenox Inj) 40 mg Q24H SQ Last administered on 08/30/16 08 :23; Start 08/30/16 at 09:00; Status Hold A/P Assessment and Plan A/P Severe hypokalemia- resolved diabetes mellitus with hypoglycemia- resolved- start accu-check with SSI Failure to thrive; consulted day care aide; will add glucerna shakes and multivitamin. consulted PT and case management Elevated troponinnonspecific. thrombocytopenia- will monitor- hold lovenox for now Discharge Planning dc planning in am. d/w the case management; home with [facility] vs rehab. Jessica Cabral MD Aug 31, 2016 12:35
[2016-08-31] MEDS ORDERED: GLUCAGON 1 MG/ML VIAL OTHER PRN (12:45)
[2016-08-31] MEDS ORDERED: DEXTROSE 50% IN WATER 50 ML VIAL(D50) IV PUSH PRN (12:45)
[2016-08-31] MEDS: INSULIN ASPART SUPPLEMENTAL SCALE SQ SCH ×2 (18:27→20:39)
[2016-08-31] MEDS: MULTIVITAMIN TAB PO SCH (18:27)
[2016-09-01] VITALS: BP 125/66; PULSE 70; RESP 20; TEMP 97.8; O2SAT 94
[2016-09-01 04:00] VITALS: BP 117/67; PULSE 70; RESP 20; TEMP 97.7; O2SAT 95
[2016-09-01] MEDS: INSULIN ASPART SUPPLEMENTAL SCALE SQ SCH ×2 (06:40→12:12)
[2016-09-01 08:00] VITALS: BP 128/68; PULSE 69; RESP 18; TEMP 98.9; O2SAT 96
[2016-09-01] MEDS: MULTIVITAMIN TAB PO SCH (08:03)
[2016-09-01] MEDS: ACETAMINOPHEN 325 MG TAB PO PRN (08:06)
[2016-09-01 08:10] VITALS: PULSE 100
[2016-09-01 12:00] VITALS: BP_SYST 139; BP_SYST 95; BP_DIAS 61; BP_DIAS 80; PULSE 59; PULSE 79; RESP 18; TEMP 98.2; O2SAT 94; O2SAT 95
--- NOTE | 2016-09-01 13:10 | HHI.PR ---
Subjective Remarks resting comfortably with no distress. denies pain. no new complaints. Objective Vitals Vital Signs Date Time Temp Pulse Resp B/P Pulse Ox O2 Delivery O2 Flow Rate FiO2 09/01/16 08:10 100 09/01/16 08:00 98.9 69 18 128/68 96 09/01/16 07:15 Room Air 09/01/16 04:00 97.7 70 20 117/67 95 09/01/16 00:00 Room Air 09/01/16 00:00 97.8 70 20 125/66 94 08/31/16 20:25 72 08/31/16 20:00 97.1 66 20 125/72 96 08/31/16 20:00 Room Air 08/31/16 16:00 97.9 65 18 140/80 96 I/O 08/31/16 08/31/16 08/31/16 09/01/16 09/01/16 09/01/16 07:00 15:00 23:00 07:00 15:00 23:00 Intake Total 311 ml 840 ml 120 ml Output Total 300 ml 300 ml Balance 311 ml 540 ml -180 ml Intake Oral 840 ml 120 ml IV Total 311 ml Output Urine Total 300 ml 300 ml # Voids 1 # Bowel Movements 1 0 Result Diagram: 08/31/16 0542 08/31/16 0542 Imaging Last Impressions Chest X-Ray 08/29/161314 Signed Impressions: Service Date/Time: Monday, August 29, 2016 13:29 - CONCLUSION: No acute disease. There is no evidence of pneumonia. Héctor Reardon MD Abdomen/Pelvis CT 08/29/165 Signed Impressions: Service Date/Time: Monday, August 29, 2016 15:17 - CONCLUSION: 1. Postsurgical changes status post Whipple procedure with pneumobilia. The pancreas is not well-visualized. 2. Nonspecific bowel gas pattern which may represent an ileus or gastroenteritis. Obstruction is less likely. 3. Status post cholecystectomy. 4. Diffuse ascitic fluid and anasarca. 5. Fatty infiltration of the liver. Héctor Reardon MD Objective Remarks GENERAL: somewhat cachectic, in no apparent distress. CARDIOVASCULAR: Regular rate and regular rhythm without murmurs, gallops, or rubs. RESPIRATORY: Clear to auscultation. Breath sounds equal bilaterally. No wheezes , rales, or rhonchi. GASTROINTESTINAL: Abdomen soft, non-tender, nondistended. Normal, active bowel sounds MUSCULOSKELETAL: Extremities without clubbing, cyanosis, or edema. NEURO: Alert & Oriented x4 to person, place, time, situation. Moves all ext x4 skin; skin laceration noted on the right leg Procedures none Medications and IVs Current Medications Diatrizoate Meglum/ Diatrizoate Sod 18 ml 18 ml STK-MED ONCE .ROUTE Last administered on 08/29/16 13:46; Start 08/29/16 at 13:46; Stop 08/29/16 at 13:47 ; Status DC Sodium Chloride (NS 1000 ml Inj) 1,000 ml @ 999 mls/hr BOLUS ONCE IV Last administered on 08/29/16 13:54; Start 08/29/16 at 14:00; Stop 08/29/16 at 15:00 ; Status DC Dextrose (D50w (Vial) Inj) 25 ml ONCE ONCE IV PUSH Last administered on 14:30; Start 08/29/16 at 14:30; Stop 08/29/16 at 14:31; Status DC Potassium Chloride (KCl) 60 meq ONCE ONCE PO Last administered on 08/29/16 14 :45; Start 08/29/16 at 14:45; Stop 08/29/16 at 14:46; Status DC Iohexol 95 ml 95 ml STK-MED ONCE IV Last administered on 08/29/16 15:35; Start 08/29/16 at 15:35; Stop 08/29/16 at 15:36; Status DC Potassium Chloride (KCl 20 Meq Premix Inj) 100 ml @ 50 mls/hr BOLUS ONCE IV Last administered on 08/29/16 17:03; Start 08/29/16 at 16:30; Stop 08/29/16 at 18:29; Status DC Dextrose (D50w (Vial) Inj) 25 ml UNSCH PRN IV PUSH HYPOGLYCEMIA-SEE COMMENTS; Start 08/29/16 at 16:30; Stop 08/31/16 at 12:40; Status DC Glucagon (Glucagon Inj) 1 mg UNSCH PRN OTHER HYPOGLYCEMIA-SEE COMMENTS; Start 08/29/16 at 16:30; Stop 08/31/16 at 12:40; Status DC Insulin Aspart (NovoLOG SUPPLEMENTAL SCALE) 1 ACHS SLIDING SCALE SQ ; Start at 21:00; Stop 08/29/16 at 21:00; Status DC Acetaminophen (Tylenol) 650 mg Q4H PRN PO FEVER/ PAIN Last administered on 09/01 08:06; Start 08/29/16 at 16:30 Ondansetron HCl (Zofran Inj) 4 mg Q8HR PRN IV PUSH NAUSEA; Start 08/29/16 at 16 :30 Influenza Virus Vaccine 0.5 ml 0.5 ml ONCE ONCE IM ; Start 08/30/16 at 10:00; Stop 08/30/16 at 10:01; Status DC Potassium Chloride 30 meq/ Dextrose/Sodium Chloride 1,015 ml @ 42 mls/hr Q24H IV Last administered on 08/30/16 23:32; Start 08/29/16 at 23:00; Stop at 12:38; Status DC Magnesium Sulfate/ Dextrose 100 ml @ 100 mls/hr Q1H IV Last administered on 06:00; Start 08/30/16 at 04:15; Stop 08/30/16 at 06:14; Status DC Potassium Chloride (KCl 20 Meq Premix Inj) 100 ml @ 50 mls/hr Q2H IV Last administered on 08/30/16 06:35; Start 08/30/16 at 04:15; Stop 08/30/16 at 08:14 ; Status DC Potassium Chloride (KCl) 40 meq ONCE ONCE PO Last administered on 08/30/16 04 :51; Start 08/30/16 at 04:15; Stop 08/30/16 at 04:30; Status DC Enoxaparin Sodium (Lovenox Inj) 40 mg Q24H SQ Last administered on 08/30/16 08 :23; Start 08/30/16 at 09:00; Status Hold Dextrose (D50w (Vial) Inj) 25 ml UNSCH PRN IV PUSH HYPOGLYCEMIA-SEE COMMENTS; Start 08/31/16 at 12:45 Glucagon (Glucagon Inj) 1 mg UNSCH PRN OTHER HYPOGLYCEMIA-SEE COMMENTS; Start 08/31/16 at 12:45 Insulin Aspart (NovoLOG SUPPLEMENTAL SCALE) 1 ACHS SLIDING SCALE SQ Last administered on 09/01/16 12:12; Start 08/31/16 at 16:00 Multivitamins (Theragran) 1 tab DAILY PO Last administered on 09/01/16t 08:03; Start 08/31/16 at 13:00 A/P Assessment and Plan A/P Severe hypokalemia- resolved diabetes mellitus with hypoglycemia- resolved- start accu-check with SSI Failure to thrive with history of Whipple surgery; consulted crutch maker; added glucerna shakes and multivitamin. consulted PT and case management Elevated troponinnonspecific. thrombocytopenia- will monitor- Discharge Planning dc to SNF. see med list. f/u with pcp. d/w the patient and case management. Jessica Cabral MD Sep 01, 2016 13:10
[2016-09-01] MEDS ORDERED: THERTAB15 PO (13:11)
--- NOTE | 2016-09-01 13:12 | HHI.DCPOC ---
Discharge Care Plan Diagnosis: (1) Failure to thrive in adult Your Health Problems Are: Difficulty with ADL Goals to Promote Your Health * To prevent worsening of your condition and complications * To maintain your health at the optimal level Directions to Meet Your Goals Take your medications as prescribed Follow your dietary instruction Follow activity as directed Keep your appointments as scheduled Take your immunizations and boosters as scheduled If your symptoms worsen call your PCP, if no PCP go to Urgent Care Center or Emergency Room Smoking is Dangerous to Your Health. Avoid second hand smoke Call the 24-hour hour crisis hotline for domestic abuse at Jessica Cabral MD Sep 01, 2016 13:12
--- NOTE | 2016-09-01 13:13 | HHI.DS ---
Discharge Summary Admission Date Aug 29, 2016 at 16:27 Discharge Date: Sep 01, 2016 Admitting Diagnosis bandemia, elevated troponin (1) Failure to thrive in adult ICD Code: R62.7 Diagnosis: Principal (2) Bandemia ICD Code: D72.825 Diagnosis: Principal (3) Hypokalemia ICD Code: E87.6 Diagnosis: Principal (4) Hypoglycemia ICD Code: E16.2 Diagnosis: Principal (5) Generalized weakness ICD Code: R53.1 Diagnosis: Principal (6) Elevated troponin ICD Code: R74.8 Diagnosis: Principal Procedures none Brief History - From Admission History from patient, ER physician notes, and review of medical records. Patient is somewhat of a poor historian. He is awake, alert, and oriented. However he does seen to think in tangential form and would suite off from the topic of conversation. It took me quite a while to get information regarding why he is here. He finally tells me that he was so much in pain and that he was moaning in his apartment and his roommate from upstairs heard him and came to check on him. The roommate then decided to call ambulance. When asked about where his pain is , patient stated it was everywhere. He then pointed and sustained he does have most pain in his right lower ribs areas. Also reports of pain in his abdomen diffusely. On specific questioning, patient denies any chest pain/palpitations/shortness of breath/focal weakness. He even denies weight loss. However he is extremely cachectic with MUSCLE wasting. He states he was called [employer] in grade school and he has always been skinny. He does reports of some nausea and vomiting and past few days. He did say that his vomitus was coffee-ground in color. However he is unsure how many times he vomited. Again, he stated he also had diarrhea. He states he was having diarrhea almost every 2 hours initially. Then yesterday, he states that he started having " cold black stool". Denies fever. Denies any burning on urination or pain on urination. Denies any recent falls or syncopal episodes. Patient reports of history of diabetes, hypertension, chronic smoker, and hepatitis a and B. He also reports of history of rheumatic fever as a child. In the emergency room, patient was noted to have severe electrolytes abnormalities with low potassium. His blood sugar was also 45. CBC/BMP: 08/31/16 0542 08/31/16 0542 Significant Findings Laboratory Tests Test 08/29/16 08/29/16 08/30/16 08/30/16 15:40 23:40 00:28 09:10 Urine Occult Blood SMALL (NEG) Urine Mucus FEW /lpf (OCC) White Blood Count 13.3 TH/MM3 11.7 TH/MM3 (4.0-11.0) (4.0-11.0) Red Blood Count 3.74 MIL/MM3 3.57 MIL/MM3 (4.50-5.90) (4.50-5.90) Hemoglobin 12.2 GM/DL 11.8 GM/DL (13.0-17.0) (13.0-17.0) Hematocrit 36.5 % 34.8 % (39.0-51.0) (39.0-51.0) Platelet Count 75 TH/MM3 66 TH/MM3 (150-450) (150-450) Mean Platelet Volume 12.2 FL 12.9 FL (7.0-11.0) (7.0-11.0) Neutrophils (%) (Auto) 77.4 % 81.6 % (16.0-70.0) (16.0-70.0) Neutrophils # (Auto) 10.3 TH/MM3 9.6 TH/MM3 (1.8-7.7) (1.8-7.7) Toxic Vacuolation PRESENT (NONE SEEN) Potassium Level 3.2 MEQ/L (3.5-5.1) Magnesium Level 1.4 MG/DL (1.5-2.5) Troponin I 0.07 NG/ML (0.02-0.05) Platelet Estimate LOW (NORMAL) Chloride Level 109 MEQ/L (98-107) Random Glucose 196 MG/DL (74-106) Calcium Level 7.3 MG/DL (8.5-10.1) Total Protein 4.5 GM/DL (6.4-8.2) Test 08/31/16 05:42 Red Blood Count 3.65 MIL/MM3 (4.50-5.90) Hemoglobin 12.4 GM/DL (13.0-17.0) Hematocrit 35.9 % (39.0-51.0) Mean Corpuscular Hemoglobin 34.1 PG (27.0-34.0) Platelet Count 66 TH/MM3 (150-450) Mean Platelet Volume 12.8 FL (7.0-11.0) Neutrophils (%) (Auto) 76.8 % (16.0-70.0) Platelet Estimate LOW (NORMAL) Platelet Morphology Comment ENLARGED (NORMAL) Carbon Dioxide Level 32.2 MEQ/L (21.0-32.0) Anion Gap 3 MEQ/L (5-15) Creatinine 0.59 MG/DL (0.60-1.30) Calcium Level 7.5 MG/DL (8.5-10.1) Imaging Last Impressions Chest X-Ray 08/29/161314 Signed Impressions: Service Date/Time: Monday, August 29, 2016 13:29 - CONCLUSION: No acute disease. There is no evidence of pneumonia. Héctor Reardon MD Abdomen/Pelvis CT 08/29/161314 Signed Impressions: Service Date/Time: Monday, August 29, 2016 15:17 - CONCLUSION: 1. Postsurgical changes status post Whipple procedure with pneumobilia. The pancreas is not well-visualized. 2. Nonspecific bowel gas pattern which may represent an ileus or gastroenteritis. Obstruction is less likely. 3. Status post cholecystectomy. 4. Diffuse ascitic fluid and anasarca. 5. Fatty infiltration of the liver. Héctor Reardon MD PE at Discharge GENERAL: somewhat cachectic, in no apparent distress. CARDIOVASCULAR: Regular rate and regular rhythm without murmurs, gallops, or rubs. RESPIRATORY: Clear to auscultation. Breath sounds equal bilaterally. No wheezes , rales, or rhonchi. GASTROINTESTINAL: Abdomen soft, non-tender, nondistended. Normal, active bowel sounds MUSCULOSKELETAL: Extremities without clubbing, cyanosis, or edema. NEURO: Alert & Oriented x4 to person, place, time, situation. Moves all ext x4 skin; skin laceration noted on the right leg Hospital Course Severe hypokalemia- resolved diabetes mellitus with hypoglycemia- resolved- start accu-check with SSI Failure to thrive with history of Whipple surgery; consulted spot washer; added glucerna shakes and multivitamin. consulted PT and case management Elevated troponinnonspecific. thrombocytopenia- will monitor- wound on the right leg- consulted wound care Pt Condition on Discharge: Good Discharge Disposition: Discharge to SNF Discharge Time: <= 30 minutes Discharge Instructions DIET: Follow Instructions for: Heart Healthy Diet, Diabetic Diet Activities you can perform: Regular-No Restrictions Follow up Referrals: PCP Follow-up New Medications: Multiple Vitamin (Thera/Beta-Carotene) 1 Tab Tab 1 TAB PO DAILY vitamin Days 30 Ref 0 TAB Continued Medications: Cilostazol (Pletal 100 Mg Tab) 100 Mg Tab 100 MG PO BID Discontinued Medications: Glimepiride (Glimepiride) 1 Mg Tab 1 MG PO DAILY Lisinopril 40 mg (Lisinopril 40 mg) 40 Mg Tab 40 MG PO DAILY Metformin XR 24 HR (Glucophage XR 24 HR) 500 Mg Tab 1000 MG PO BID Jessica Cabral MD Sep 01, 2016 13:13
== END 2016-09-01 15:19 | DRG 641 ==
LOC: NEPA 13:00 → NEDA 16:27 → N04B 19:57
PROVIDERS: ADMIT Internal Medicine; ATTEND Internal Medicine
DX: E87.6 Hypokalemia (principal); R62.7 Adult failure to thrive; R18.8 Other ascites; R64 Cachexia; E11.649 Type 2 diabetes mellitus with hypoglycemia without coma; D69.6 Thrombocytopenia, unspecified; K56.7 Ileus, unspecified; M62.50 Muscle wasting and atrophy, not elsewhere classified, unspecified site; I48.91 Unspecified atrial fibrillation; R74.8 Abnormal levels of other serum enzymes; R11.2 Nausea with vomiting, unspecified; I10 Essential (primary) hypertension; F17.210 Nicotine dependence, cigarettes, uncomplicated; J44.9 Chronic obstructive pulmonary disease, unspecified; Z86.19 Personal history of other infectious and parasitic diseases; Z90.411 Acquired partial absence of pancreas; D72.825 Bandemia; S81.811A Laceration without foreign body, right lower leg, initial encounter; X58.XXXA Exposure to other specified factors, initial encounter; Y93.9 Activity, unspecified; Y92.9 Unspecified place or not applicable
CPT/HCPCS: 71010; 74177; 80048; 80053; 81001; 82948; 83605; 83690; 83735; 84132; 84155; 84484; 85007; 85025; 85027; 86850; 86900; 86901; 87040; 93005; 96374; 96375; J1650; J1815; J3475; J3480; J7030; J7042; Q9963; Q9967

== ENCOUNTER 2016-09-02 07:09 | Emergency (ER) | payer MEDICARE, OTHER ==
[~2016-09-02] VITALS: Ht 175.3 cm; Wt 48.0 kg
[~2016-09-02 07:09] MED LIST changes: -GLIM1TAB PO; -GLUCTAB PO; -LISI-366 PO; +THERTAB15 PO
[2016-09-02 07:19] VITALS: BP 112/69; PULSE 72; RESP 20; TEMP 97.7; O2SAT 92
--- NOTE | 2016-09-02 07:33 | PD ---
HPI Chief Complaint: Fall Time Seen by Provider: 07:24 Travel History International Travel<30 days: No Contact w/Intl Traveler<30days: No Traveled to known affect area: No History of Present Illness HPI This is an 81-year-old gentleman with history of COPD, hypertension, diabetes mellitus, peripheral artery disease, COPD, who presents today from the shelter after he had a mechanical fall. The patient was in his wheelchair and when he tried to get out, he fell forward striking his head. The patient reports pain in his left forehead and left shoulder. He also has a skin tear on his right arm. There appears to be an old skin tear that has a dressing in place on his right wright. The patient denies any loss of consciousness. Patient denies being on any blood thinners. There are no other complaints time my examination. PFSH Past Medical History Hx Anticoagulant Therapy: No Cancer: No Cardiovascular Problems: Yes (HTN) High Cholesterol: Yes COPD: Yes Coronary Artery Disease: Yes Diabetes: Yes Patient Takes Glucophage: No Diminished Hearing: No Glaucoma: No Hepatitis: Yes (A & B) Hiatal Hernia: No Hypertension: Yes Medical other: No Respiratory: Yes (COPD ) Immunizations Current: No Thyroid Disease: No Tetanus Vaccination: > 5 Years Influenza Vaccination: Yes Past Surgical History Abdominal Surgery: Yes (WHIPPLE) Cholecystectomy: Yes Oral Surgery: Yes (T & A) Pacemaker: No Tonsillectomy: Yes Other Surgery: Yes Social History Alcohol Use: No (HE USED TO DRINK EVERYDAY ) Tobacco Use: Yes (1-2 PPD) Substance Use: No Allergies-Medications (Allergen,Severity, Reaction): Coded Allergies: Sulfa (Unverified Allergy, Unknown, 09/02/16) Reported Meds & Prescriptions Reported Meds & Active Scripts Active Thera/Beta-Carotene (Multiple Vitamin) 1 Tab Tab 1 Tab PO DAILY 30 Days Reported Pletal 100 Mg Tab (Cilostazol) 100 Mg Tab 100 Mg PO BID Review of Systems Except as stated in HPI: all other systems reviewed are Neg General / Constitutional: No: Fever, Chills HENT: Positive: Headaches (left for head), No: Neck Pain Cardiovascular: No: Chest Pain or Discomfort Respiratory: No: Cough, Shortness of Breath Gastrointestinal: No: Abdominal Pain Musculoskeletal: Positive: Pain (left shoulder and clavicle) Skin: Positive Other (frail skin with skin tears new one on right forearm) Neurologic: Positive: Headache (left forehead), No: Syncope Physical Exam Narrative GENERAL: Well-nourished, well-developed patient, in no acute respiratory distress. SKIN: Warm and dry. HEAD: Normocephalic. There is a 1 cm laceration to left eyebrow. EYES: No scleral icterus. No injection or drainage. NECK: Supple, trachea midline. Patient states that he has pain in his left shoulder that goes to his lateral neck. CARDIOVASCULAR: Regular rate and rhythm without murmurs, gallops, or rubs. RESPIRATORY: Breath sounds equal bilaterally. No accessory muscle use. GASTROINTESTINAL: Abdomen soft, non-tender, nondistended. MUSCULOSKELETAL: There are multiple skin bruises in various stages of age. He has a new skin tear to his right forearm. There is an old skin tear that has a bandage on his right wright. BACK: Nontender without obvious deformity. NEUROLOGICAL: Awake and alert. Cranial nerves II through XII intact. Motor grossly within normal limits. Normal speech. Data Data Last Documented VS Vital Signs Date Time Temp Pulse Resp B/P Pulse Ox O2 Delivery O2 Flow Rate FiO2 09/02/16 07:20 92 Room Air 09/02/16 07:19 97.7 72 20 112/69 Orders Clavicle (09/02/16 07:30) Shoulder, Limited(2vws) (09/02/16 07:30) Ct Brain W/O Iv Contrast(Rout) (09/02/16 07:30) Ct Cerv Spine W/O Contrast (09/02/16 07:33) [employer] Request For Service (09/02/16 08:48) Lidocaine 1% Inj (50 Ml) (Xylocaine 1% I (09/02/16 09:15) Fiberglass Sugartong Sp Ad Arm (09/02/16 ) Sling And Swathe (09/02/16 ) MDM Medical Decision Making Medical Screen Exam Complete: Yes Emergency Medical Condition: Yes Medical Record Reviewed: Yes Differential Diagnosis Concussion versus intracranial hemorrhage versus left eyebrow laceration Shoulder contusion versus humerus fracture versus clavicle fracture Narrative Course This is an 81-year-old gentleman who presents to the ED from the shelter after he had a mechanical fall outside his wheelchair. The patient fell forward striking his head and left shoulder. The patient has a laceration to his left eyebrow. This is been repaired by ROSALES Dillon. CT brain and cervical spine show no evidence of acute injury. Left shoulder x-ray shows comminuted proximal humerus fracture. The patient is been placed in a coaptation splint. The patient's tetanus immunization is up-to-date as he states he had one last year. The patient also has a Tegaderm dressing. The patient will be discharged back to the shelter with instructions to follow up with an orthopedist. Sutures will be removed in 5-7 days. Diagnosis Primary Impression: Closed head injury Additional Impressions: Laceration of left eyebrow without complication Closed fracture of left proximal humerus Skin tear of right forearm without complication Additional Instructions: Keep splint on until seen by orthopedic surgeon. I'll up with orthopedic surgeon. Suture removal in 5-7 days. Tegaderm dressing to right forearm skin tear. Disposition: DISCHARGE HOME Condition: Stable Saud Cramer MD Sep 02, 2016 07:33
--- NOTE | 2016-09-02 08:29 | RADRPT ---
EXAM DATE/TIME: 09/02/2016 08:04 [facility] COMPARISON: No previous studies available for comparison. INDICATIONS : Left shoulder pain MEDICAL HISTORY : Hypertension. Diabetes mellitus type 1. Chronic obstructive pulmonary disease. SURGICAL HISTORY : Cholecystectomy. Whipple procedure. ENCOUNTER: Initial ACUITY: 1 day PAIN SCORE: 9/10 LOCATION: Left upper extremity FINDINGS: Two view examination of the left clavicle demonstrates no evidence of fracture. The sternoclavicular joints and acromioclavicular joints are normally aligned. Bony mineralization is normal. CONCLUSION: Intact left clavicle. Alfredo Martin MD on September 02, 2016 at 8:27 Board Certified Radiologist. This report was verified electronically.
--- NOTE | 2016-09-02 08:34 | RADRPT ---
EXAM DATE/TIME: 09/02/2016 08:05 [facility] COMPARISON: No previous studies available for comparison. INDICATIONS : Left shoulder pain MEDICAL HISTORY : Hypertension. Diabetes mellitus type 1. Chronic obstructive pulmonary disease SURGICAL HISTORY : Cholecystectomy. Whipple procedure. ENCOUNTER: Initial ACUITY: 1 day PAIN SCORE: 9/10 LOCATION: Left upper extremity FINDINGS: There is a comminuted fracture of the surgical neck and proximal shaft of the left humerus. There is some impaction medially which results in some inferomedial angulation of the head with respect to the neck. Displacement is otherwise minimal. Articular surface appears intact. No malalignment of the gl enohumeral joint. 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 Patchy lucency seen within the medullary space of the left humerus. CONCLUSION: 1. Comminuted surgical neck and proximal shaft fracture of the left humerus with mild medial angulati on deformity. 2. Degenerative changes as above. 3. Patchy lucency within the medullary space of the left humerus, indeterminate but probably on the b asis of osteopenia. I don't see a well-defined or measurable focal lesion. No periosteal reaction see nChris Martin MD on September 02, 2016 at 8:28 Board Certified Radiologist. This report was verified electronically.
--- NOTE | 2016-09-02 08:37 | RADRPT ---
EXAM DATE/TIME: 09/02/2016 08:08 [facility] COMPARISON: CT BRAIN W/O CONTRAST, June 08, 2012, 20:31. CT BRAIN W/O CONTRAST, May 28, 2012, 18:49. INDICATIONS : Trauma; fall, left eye laceration. RADIATION DOSE: 56.35 CTDIvol (mGy) MEDICAL HISTORY : Hypertension. Cardiovascular disease SURGICAL HISTORY : Tonsillectomy. ENCOUNTER: Initial ACUITY: 1 day PAIN SCALE: 5/10 LOCATION: cranial TECHNIQUE: Multiple contiguous axial images were obtained of the head. Using automated exposure control and adj ustment of the mA and/or kV according to patient size, radiation dose was kept as low as reasonably a chievable to obtain optimal diagnostic quality images. FINDINGS: CEREBRUM: The ventricles are normal for age. No evidence of midline shift, mass lesion, hemorrhage or acute in farction. No extra-axial fluid collections are seen. Chronic low attenuation seen in the periventric ular white matter. POSTERIOR FOSSA: The cerebellum and brainstem are intact. The 4th ventricle is midline. The cerebellopontine angle i s unremarkable. EXTRACRANIAL: The visualized portion of the orbits is intact. SKULL: The calvaria is intact. No evidence of skull fracture. CONCLUSION: No bleed or other acute intracranial abnormality. Chronic white matter changes. Alferdo Martin MD on September 02, 2016 at 8:34 Board Certified Radiologist. This report was verified electronically.
--- NOTE | 2016-09-02 08:42 | RADRPT ---
EXAM DATE/TIME: 09/02/2016 08:08 [facility] COMPARISON: No previous studies available for comparison. INDICATIONS : Trauma; fall, left eye laceration. RADIATION DOSE: 24.55 CTDIvol (mGy) MEDICAL HISTORY : Cardiovascular disease. Hypertension. SURGICAL HISTORY : Tonsillectomy. ENCOUNTER: Initial ACUITY: 1 day PAIN SCALE: 5/10 LOCATION: Bilateral neck TECHNIQUE: Volumetric scanning of the cervical spine was performed. Multiplanar reconstructions in the sagittal, coronal and oblique axial planes were performed. Using automated exposure control and adjustment o f the mA and/or kV according to patient size, radiation dose was kept as low as reasonably achievable to obtain optimal diagnostic quality images. FINDINGS: The cervical spine alignment is normal. No cortical break or trabecular disruption demonstrated. Vert ebral bodies have normal height. There is moderate osteoarthritis anteriorly at C1/C2. There is multilevel disc space narrowing with uncovertebral and facet osteoarthritis, moderate to sev ere at C5/C6 and C6/C7, mild at the other levels. Small, broad posterior disc osteophyte complexes ar e seen, most conspicuous at C3/C4, C5/C6 and C6/C7. There is mild bilateral foraminal stenosis at C5/ C6 and C6/C7 which is right more so than left. No significant spinal stenosis demonstrated. No eviden ce of an epidural hematoma. Juxtavertebral soft tissues are within normal limits. CONCLUSION: 1. No fracture or subluxation of the cervical spine. 2. Multilevel degenerative changes as above. Alfredo Martin MD on September 02, 2016 at 8:38 Board Certified Radiologist. This report was verified electronically.
[2016-09-02] MEDS ORDERED: LIDOCAINE HCL 1% 50 ML VIAL INFIL ONE (09:15)
--- NOTE | 2016-09-02 09:36 | PD ---
Physical Exam Time Seen by Provider: 09:35 Narrative I repaired the laceration to the left lateral eyebrow. See my procedure note. Data Data Last Documented VS Vital Signs Date Time Temp Pulse Resp B/P Pulse Ox O2 Delivery O2 Flow Rate FiO2 09/02/16 07:20 92 Room Air 09/02/16 07:19 97.7 72 20 112/69 Orders Clavicle (09/02/16 07:30) Shoulder, Limited(2vws) (09/02/16 07:30) Ct Brain W/O Iv Contrast(Rout) (09/02/16 07:30) Ct Cerv Spine W/O Contrast (09/02/16 07:33) [employer] Request For Service (09/02/16 08:48) Lidocaine 1% Inj (50 Ml) (Xylocaine 1% I (09/02/16 09:15) Fiberglass Sugartong Sp Ad Arm (09/02/16 ) Sling And Swathe (09/02/16 ) MDM Supervised Visit with ZHAO: Yes Narrative Course I repaired the laceration to the left lateral eyebrow. See my procedure note. Procedures Procedure Narrative LACERATION LOCATION: Left lateral eyebrow LENGTH: 2 cm NUMBER OF STITCHES/VERONA: 4 simple interrupted sutures REPAIR: The area of the laceration was prepped with Betadine and sterilely draped. The laceration was infiltrated with 1% lidocaine. The wound was copiously irrigated and explored without evidence of foreign body , tendon injury or neurovascular injury. The wound was closed using 6-0 Prolene. This was a single layer repair. A sterile dressing was applied. The patient was advised to keep the dressing clean and dry. Patient tolerated the procedure well. Neela Snell Sep 02, 2016 09:36
[2016-09-02 10:00] VITALS: BP 100/80; PULSE 63; RESP 18; O2SAT 95
[2016-09-02 14:24] VITALS: BP 120/70
== END 2016-09-02 14:24 | disposition home or self-care (01) ==
LOC: NEPC 07:09
DX: S01.112A Laceration without foreign body of left eyelid and periocular area, initial encounter (principal); S42.212A Unspecified displaced fracture of surgical neck of left humerus, initial encounter for closed fracture; J44.9 Chronic obstructive pulmonary disease, unspecified; I10 Essential (primary) hypertension; E11.9 Type 2 diabetes mellitus without complications; E78.00 Pure hypercholesterolemia, unspecified; I25.10 Atherosclerotic heart disease of native coronary artery without angina pectoris; F17.210 Nicotine dependence, cigarettes, uncomplicated; R51 Headache; S50.811A Abrasion of right forearm, initial encounter; W05.0XXA Fall from non-moving wheelchair, initial encounter; Y99.8 Other external cause status; Y92.129 Unspecified place in nursing home as the place of occurrence of the external cause
CPT/HCPCS: 12011; 29125; 29240; 70450; 72125; 73000; 73030

== ENCOUNTER 2016-09-10 08:04 | Emergency (ER) | payer OTHER ==
[~2016-09-10] VITALS: Ht 175.3 cm; Wt 60.0 kg
[2016-09-10 08:05] VITALS: BP 110/59; PULSE 106; RESP 20; TEMP 97.5; O2SAT 92
--- NOTE | 2016-09-10 08:26 | PD ---
HPI Chief Complaint: Abdominal Pain Time Seen by Provider: 08:06 Travel History International Travel<30 days: No Contact w/Intl Traveler<30days: No Traveled to known affect area: No History of Present Illness HPI Patient sent from the correction because of abdominal pain. He developed some abdominal cramping this morning. According to report, they gave him breakfast and then sent him to the emergency room. He ate without vomiting. He has absolute no abdominal pain at this time. He did have 2 episodes of diarrhea during the night. Severity is mild this time. No alleviating factors. He has some minor nausea. Duration one day. PFSH Past Medical History Hx Anticoagulant Therapy: No Cancer: No Cardiovascular Problems: Yes (PAD) High Cholesterol: Yes COPD: Yes Coronary Artery Disease: Yes Diabetes: Yes Patient Takes Glucophage: No Diminished Hearing: No Glaucoma: No Hepatitis: Yes (A & B) Hiatal Hernia: No Hypertension: Yes Respiratory: Yes (COPD) Immunizations Current: No Thyroid Disease: No Past Surgical History Abdominal Surgery: Yes (WHIPPLE) Cholecystectomy: Yes Oral Surgery: Yes (T & A) Pacemaker: No Tonsillectomy: Yes Other Surgery: Yes Social History Alcohol Use: Yes ("one beer and five pretzels at dinnertime") Tobacco Use: Yes ("5 cigarettes a day") Substance Use: No Allergies-Medications (Allergen,Severity, Reaction): Coded Allergies: Sulfa (Unverified Allergy, Unknown, 09/10/16) Reported Meds & Prescriptions Reported Meds & Active Scripts Active Thera/Beta-Carotene (Multiple Vitamin) 1 Tab Tab 1 Tab PO DAILY 30 Days Reported Pletal 100 Mg Tab (Cilostazol) 100 Mg Tab 100 Mg PO BID Review of Systems General / Constitutional: No: Fever Eyes: No: Visual changes HENT: No: Headaches Cardiovascular: Positive: Edema, No: Chest Pain or Discomfort Respiratory: No: Shortness of Breath Gastrointestinal: Positive: Nausea, Diarrhea, Abdominal Pain Genitourinary: No: Dysuria Musculoskeletal: Positive: Edema, No: Pain Skin: No Rash Neurologic: No: Weakness Psychiatric: No: Depression Endocrine: No: Polydipsia Hematologic/Lymphatic: No: Easy Bruising Physical Exam Narrative GENERAL: Thin elderly cachectic well-developed patient in no apparent distress. SKIN: Warm and dry. HEAD: Atraumatic. Normocephalic. EYES: Pupils equal and round. No scleral icterus. No injection or drainage. ENT: No nasal bleeding or discharge. Mucous membranes pink and moist. NECK: Trachea midline. No JVD. CARDIOVASCULAR: Regular rate and rhythm. No murmur appreciated. RESPIRATORY: No accessory muscle use. Clear to auscultation. Breath sounds equal bilaterally. GASTROINTESTINAL: Abdomen soft, non-tender, nondistended. Hepatic and splenic margins not palpable. MUSCULOSKELETAL: As a splint on the left humerus with sling. No clubbing. No cyanosis. Left radial pulse palpable. Cap refill and sensation intact. However his left hand and forearm up to the level of splint is very edematous. Has wraps over the lower legs bilaterally. NEUROLOGICAL: Awake and alert. No obvious cranial nerve deficits. Motor grossly within normal limits. Normal speech. PSYCHIATRIC: Appropriate mood and affect; insight and judgment normal. Data Data Last Documented VS Vital Signs Date Time Temp Pulse Resp B/P Pulse Ox O2 Delivery O2 Flow Rate FiO2 09/10/16 08:05 97.5 106 20 110/59 92 Orders Iv Access Insert/Monitor (09/10/16 08:17) Complete Blood Count With Diff (09/10/16 08:17) Basic Metabolic Panel (Bmp) (09/10/16 08:17) Sodium Chlorid 0.9% 500 Ml Inj (Ns 500 M (09/10/16 08:30) Ondansetron Inj (Zofran Inj) (09/10/16 08:30) Labs Laboratory Tests Test 09/10/16 08:25 White Blood Count 8.3 TH/MM3 Red Blood Count 2.88 MIL/MM3 Hemoglobin 9.6 GM/DL Hematocrit 27.9 % Mean Corpuscular Volume 96.6 FL Mean Corpuscular Hemoglobin 33.2 PG Mean Corpuscular Hemoglobin 34.3 % Concent Red Cell Distribution Width 13.9 % Platelet Count 259 TH/MM3 Mean Platelet Volume 10.4 FL Neutrophils (%) (Auto) 74.6 % Lymphocytes (%) (Auto) 16.1 % Monocytes (%) (Auto) 8.3 % Eosinophils (%) (Auto) 0.5 % Basophils (%) (Auto) 0.5 % Neutrophils # (Auto) 6.2 TH/MM3 Lymphocytes # (Auto) 1.3 TH/MM3 Monocytes # (Auto) 0.7 TH/MM3 Eosinophils # (Auto) 0.0 TH/MM3 Basophils # (Auto) 0.0 TH/MM3 CBC Comment DIFF FINAL Differential Comment Sodium Level 137 MEQ/L Potassium Level 3.5 MEQ/L Chloride Level 99 MEQ/L Carbon Dioxide Level 32.8 MEQ/L Anion Gap 5 MEQ/L Blood Urea Nitrogen 13 MG/DL Creatinine 0.52 MG/DL Estimat Glomerular Filtration 152 ML/MIN Rate Random Glucose 79 MG/DL Calcium Level 7.5 MG/DL MDM Medical Decision Making Medical Screen Exam Complete: Yes Emergency Medical Condition: Yes Medical Record Reviewed: Yes Differential Diagnosis Gastroenteritis, colitis, food poisoning Narrative Course I have reviewed the patient's electronic medical record. The patient's third visit to the emergency room in the last 2 weeks. He was recently hospitalized and now is at a correction IV placed I gave him IV Zofran and normal saline IV CBC shows minor anemia but no leukocytosis Metabolic profile is normal other than minimal bicarbonate elevation consistent with his chronic COPD Patient had some abdominal pain which has completely resolved. His abdomen is soft and benign and nontender I Believe that his left humerus splint is too tight and he is extremely edematous distal to the splint. [employer] is removing and replacing the splint so it is not as tight. Patient on recheck feels well. He is stable for return to correction No indication for emergent abdominal imaging Diagnosis Primary Impression: Abdominal pain Qualified Code: R10.84 - Generalized abdominal pain Additional Impressions: Diarrhea Qualified Code: R19.7 - Diarrhea, unspecified type Extremity edema Additional Instructions: The patient was advised to follow up with their physician and return if they worsen. Med/Other Pt SpecificInfo: Other Disposition: 03 DISCHARGE TO SNF Condition: Stable Seun Stone MD Sep 10, 2016 08:26
[2016-09-10] MEDS ORDERED: ONDANSETRON HCL 4 MG/2 ML VIAL IV ONE (08:30)
[2016-09-10] MEDS ORDERED: SODIUM CHLORID 0.9% 500 ML INJ 500 ML IV SCH (08:30)
[2016-09-10 08:33] LABS: AUTOMATED NEUTROPHIL # 6.2 TH/MM3 (1.8-7.7); BASOPHIL % 0.5 % (0.0-2.0); EOSINOPHIL % 0.5 % (0.0-4.0); HEMATOCRIT 27.9 % (39.0-51.0); HEMO FLAGS DIFF FINAL; LYMPH % 16.1 % (9.0-44.0); LYMPHOCYTE # 1.3 TH/MM3 (1.0-4.8); MEAN CELL VOLUME 96.6 FL (80.0-100.0); MEAN CORPUSCULAR HEMOGLOBIN 33.2 PG (27.0-34.0); MEAN CORPUSCULAR HGB CONC 34.3 % (32.0-36.0); MONO % 8.3 % (0.0-8.0); NEUT % 74.6 % (16.0-70.0); PLATELET COUNT 259 TH/MM3 (150-450); RED BLOOD COUNT 2.88 MIL/MM3 (4.50-5.90); RED CELL DISTRIBUTION WIDTH 13.9 % (11.6-17.2); WHITE BLOOD COUNT 8.3 TH/MM3 (4.0-11.0)
[2016-09-10 08:45] LABS: BICARBONATE 32.8 MEQ/L (21.0-32.0); POTASSIUM 3.5 MEQ/L (3.5-5.1)
[2016-09-10 08:56] VITALS: BP 125/80; PULSE 88; RESP 20; O2SAT 94
[2016-09-10] MEDS ORDERED: CILO100T PO (09:00)
[2016-09-10] MEDS ORDERED: HUMALOG SQ (09:00)
[2016-09-10] MEDS ORDERED: TRAM50TA PO (09:00)
== END 2016-09-10 12:00 ==
LOC: NEPC 08:04
DX: R10.84 Generalized abdominal pain (principal); R19.7 Diarrhea, unspecified; R60.0 Localized edema; I25.10 Atherosclerotic heart disease of native coronary artery without angina pectoris; I10 Essential (primary) hypertension; F17.210 Nicotine dependence, cigarettes, uncomplicated; J44.9 Chronic obstructive pulmonary disease, unspecified; E11.9 Type 2 diabetes mellitus without complications
CPT/HCPCS: 80048; 85025; 96374; 99284; J2405; J7040

== ENCOUNTER 2016-09-21 15:52 | Inpatient (IN) | payer OTHER, MEDICARE ==
[~2016-09-21] VITALS: Ht 175.3 cm; Wt 51.1 kg
[~2016-09-21 15:52] MED LIST changes: +HUMALOG SQ; +TRAM50TA PO
[2016-09-21 15:55] VITALS: BP 103/62; PULSE 83; RESP 16; TEMP 97.5; O2SAT 100
--- NOTE | 2016-09-21 15:56 | PD ---
HPI Chief Complaint: generalized weakness Time Seen by Provider: 15:56 Travel History International Travel<30 days: No Contact w/Intl Traveler<30days: No Traveled to known affect area: No History of Present Illness HPI 81-year-old male with history of significant failure to thrive has a left upper extremity fracture. He went to see orthopedist and while he was waiting for the orthopedist's office became weak. They called 911. His blood sugar was 65 as per the paramedics. Patient looks extremely emaciated. He does have history of unspecified hypoglycemia. He comes from a rehabilitation facility and they sent his paperwork along with him. Patient is very hard of hearing and not the best historian. Denies of any chest pain. Patient did not have a syncopal episode. His blood sugar in the ER was 55. PFSH Past Medical History Narrative Medical List of his past medical, surgical, social and family history is reviewed from the nursing note. Hx Anticoagulant Therapy: No Cancer: No Cardiovascular Problems: Yes (PAD) High Cholesterol: Yes COPD: Yes Coronary Artery Disease: Yes Diabetes: Yes Diminished Hearing: No Glaucoma: No Hepatitis: Yes (A & B) Hiatal Hernia: No Hypertension: Yes Respiratory: Yes (COPD) Immunizations Current: No Thyroid Disease: No Past Surgical History Abdominal Surgery: Yes (WHIPPLE) Cholecystectomy: Yes Oral Surgery: Yes (T & A) Pacemaker: No Tonsillectomy: Yes Other Surgery: Yes Social History Alcohol Use: Yes ("one beer and five pretzels at dinnertime") Tobacco Use: Yes ("5 cigarettes a day") Substance Use: No Allergies-Medications (Allergen,Severity, Reaction): Coded Allergies: Sulfa (Unverified Allergy, Unknown, 09/21/16) Comments List of his allergies reviewed from the nursing note. Reported Meds & Prescriptions Reported Meds & Active Scripts Active Thera/Beta-Carotene (Multiple Vitamin) 1 Tab Tab 1 Tab PO DAILY 30 Days Reported Cilostazol 100 Mg Tab 100 Mg PO BID Humalog Inj (Insulin Human Lispro) 1,000 Unit/10 Ml Vial 1 Units SQ DIRECTED Max dose at bedtime:( )units; sugars< 70,(0)units; sugars 150-199,(1)unit; sugars 200-249,(3)units; sugars 250-299,(5)units; sugars 300-349,(7)units; sugars more than 349,(9)units. Tramadol (Tramadol HCl) 50 Mg Tab 100 Mg PO Q4H PRN Narrative Medication List of his home medications reviewed from the nursing note. Review of Systems Except as stated in HPI: all other systems reviewed are Neg Physical Exam Narrative GENERAL: Lethargic, elderly, frail, cachectic SKIN: Warm and dry. Pale HEAD: Atraumatic. Normocephalic. EYES: Pupils equal and round. No scleral icterus. No injection or drainage. ENT: No nasal bleeding or discharge. Mucous membranes pink and moist. NECK: Trachea midline. No JVD. CARDIOVASCULAR: Regular rate and rhythm. No murmur appreciated. RESPIRATORY: No accessory muscle use. Clear to auscultation. Breath sounds equal bilaterally. GASTROINTESTINAL: Abdomen soft, non-tender, nondistended. Hepatic and splenic margins not palpable. MUSCULOSKELETAL: Left upper extremity is in a plaster. No clubbing. No cyanosis. No edema. NEUROLOGICAL: Awake and alert. No obvious cranial nerve deficits. Motor grossly within normal limits. Normal speech. PSYCHIATRIC: Appropriate mood and affect; insight and judgment normal. Data Data Last Documented VS Vital Signs Date Time Temp Pulse Resp B/P Pulse Ox O2 Delivery O2 Flow Rate FiO2 09/21/16 16:15 85 16 106/57 100 Nasal Cannula 2 09/21/16 15:55 97.5 Orders Electrocardiogram (09/21/16 16:04) Basic Metabolic Panel (Bmp) (09/21/16 16:04) Complete Blood Count With Diff (09/21/16 16:04) Magnesium (Mg) (09/21/16 16:04) Troponin I (09/21/16 16:04) Chest, Single Ap (09/21/16 16:04) Ecg Monitoring (09/21/16 16:04) Bilateral Bp Monitoring (09/21/16 16:04) Iv Access Insert/Monitor (09/21/16 16:04) Oximetry (09/21/16 16:04) Oxygen Administration (09/21/16 16:04) Sodium Chlorid 0.9% 500 Ml Inj (Ns 500 M (09/21/16 16:15) Dextrose 50% In Carmencita (Vial) Inj (D50w (Vi (09/21/16 16:15) Blood Culture (09/21/16 17:11) Lactic Acid (09/21/16 17:11) Ceftriaxone Inj (Rocephin Inj) (09/21/16 17:15) Azithromycin Inj (Zithromax Inj) (09/21/16 17:15) Sodium Chlorid 0.9% 500 Ml Inj (Ns 500 M (09/21/16 17:45) Admit Order (Ed Use Only) (09/21/16 17:52) Labs Laboratory Tests Test 09/21/16 16:25 White Blood Count 14.9 TH/MM3 Red Blood Count 2.69 MIL/MM3 Hemoglobin 9.3 GM/DL Hematocrit 27.1 % Mean Corpuscular Volume 100.7 FL Mean Corpuscular Hemoglobin 34.4 PG Mean Corpuscular Hemoglobin 34.1 % Concent Red Cell Distribution Width 15.5 % Platelet Count 258 TH/MM3 Mean Platelet Volume 9.9 FL Neutrophils (%) (Auto) 86.4 % Lymphocytes (%) (Auto) 7.2 % Monocytes (%) (Auto) 6.1 % Eosinophils (%) (Auto) 0.1 % Basophils (%) (Auto) 0.2 % Neutrophils # (Auto) 12.9 TH/MM3 Lymphocytes # (Auto) 1.1 TH/MM3 Monocytes # (Auto) 0.9 TH/MM3 Eosinophils # (Auto) 0.0 TH/MM3 Basophils # (Auto) 0.0 TH/MM3 CBC Comment DIFF FINAL Differential Comment Sodium Level 140 MEQ/L Potassium Level 3.9 MEQ/L Chloride Level 102 MEQ/L Carbon Dioxide Level 28.3 MEQ/L Anion Gap 10 MEQ/L Blood Urea Nitrogen 47 MG/DL Creatinine 1.28 MG/DL Estimat Glomerular Filtration 54 ML/MIN Rate Random Glucose 46 MG/DL Calcium Level 7.7 MG/DL Magnesium Level 2.0 MG/DL Troponin I 0.02 NG/ML [facility] Medical Decision Making Medical Screen Exam Complete: Yes Emergency Medical Condition: Yes Medical Record Reviewed: Yes Interpretation(s) Twelve-lead EKG was reviewed by me. Normal sinus rhythm, left axis deviation, old inferior and anterior AR, poor R-wave progression, motion artifact. Heart rate of 87 bpm. Differential Diagnosis Sepsis, UTI, dehydration, electrolyte abnormality Narrative Course 5:26 PM blood test results are partially back. Patient does have leukocytosis and anemia. Chest x-ray suggestive of small left pleural effusion with possible consolidation. I've ordered him IV Rocephin and Zithromax. Blood cultures lactic acid is also been ordered. Patient is getting IV fluid bolus. Awaiting for the chemistry results to come back. Patient will require admission at this point seems like. Is also given D50 IV. 5:54 PM I spoke with the hospitalist and she is accepted the patient. 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
[2016-09-21 16:15] VITALS: BP 106/57; PULSE 85; RESP 16; O2SAT 100
[2016-09-21] MEDS ORDERED: DEXTROSE 50% IN WATER 50 ML VIAL(D50) IV PUSH ONE (16:15)
[2016-09-21] MEDS ORDERED: SODIUM CHLORID 0.9% 500 ML INJ 500 ML IV ONE ×2 (16:15→17:45)
[2016-09-21] MEDS ORDERED: SODIUM CHLORIDE 0.9% FLUSH 5 ML FLUSH IVF PRN (16:15)
[2016-09-21 16:53] LABS: AUTOMATED NEUTROPHIL # 12.9 TH/MM3 (1.8-7.7); BASOPHIL % 0.2 % (0.0-2.0); EOSINOPHIL % 0.1 % (0.0-4.0); HEMATOCRIT 27.1 % (39.0-51.0); HEMO FLAGS DIFF FINAL; LYMPH % 7.2 % (9.0-44.0); LYMPHOCYTE # 1.1 TH/MM3 (1.0-4.8); MEAN CELL VOLUME 100.7 FL (80.0-100.0); MEAN CORPUSCULAR HEMOGLOBIN 34.4 PG (27.0-34.0); MEAN CORPUSCULAR HGB CONC 34.1 % (32.0-36.0); MONO % 6.1 % (0.0-8.0); NEUT % 86.4 % (16.0-70.0); PLATELET COUNT 258 TH/MM3 (150-450); RED BLOOD COUNT 2.69 MIL/MM3 (4.50-5.90); RED CELL DISTRIBUTION WIDTH 15.5 % (11.6-17.2); WHITE BLOOD COUNT 14.9 TH/MM3 (4.0-11.0)
--- NOTE | 2016-09-21 16:56 | RADRPT ---
EXAM DATE/TIME: 09/21/2016 16:09 [facility] COMPARISON: CHEST SINGLE AP, August 29, 2016, 13:29. INDICATIONS : Chest pain MEDICAL HISTORY : None. SURGICAL HISTORY : None. ENCOUNTER: Initial ACUITY: 1 day PAIN SCORE: 0/10 LOCATION: chest FINDINGS: Portable AP view of the chest demonstrates a normal-sized cardiac silhouette with calcification of th e aorta. There is left lower lobe airspace consolidation with pleural based opacity. No pneumothorax is visualized. Bones and soft tissues demonstrate no acute finding. However, the bones are underminer alized. CONCLUSION: Small left pleural effusion with associated atelectasis and/or airspace consolidation in the left low er lobe. Alfredo Briones MD on September 21, 2016 at 16:54 Board Certified Radiologist. This report was verified electronically.
[2016-09-21] MEDS ORDERED: AZITHROMYCIN INJ 500 MG in SODIUM CHLOR 0.9% 250 ML INJ 250 ML IV ONE (17:15)
[2016-09-21] MEDS ORDERED: cefTRIAXone INJ 1,000 MG in SODIUM CHLORIDE 0.9% INJ 100 ML IV ONE (17:15)
[2016-09-21 17:24] LABS: BICARBONATE 28.3 MEQ/L (21.0-32.0); POTASSIUM 3.9 MEQ/L (3.5-5.1)
--- NOTE | 2016-09-21 19:12 | HHI.HP ---
HPI Service [facility] Primary Care Physician Non-Staff Admission Diagnosis pneumonia, hypoglycemia, failure to thrive Diagnoses: (1) PNA (pneumonia) Diagnosis: Principal (2) Hypoglycemia Diagnosis: Principal (3) Anemia Diagnosis: Principal (4) Failure to thrive in adult Diagnosis: Principal (5) Tobacco abuse Diagnosis: Principal (6) DNR (do not resuscitate) Diagnosis: Principal Travel History International Travel<30 Days: No Contact w/Intl Traveler <30 Da: No Traveled to Known Affected Are: No History of Present Illness This is an 81-year-old DNR male with a PMH of HTN, COPD, CAD, [place], Hepatitis A/B , Tobacco Abuse, DM and FTT who was brought to the ER by EMS secondary to generalized weakness while at Orthopedist's office. Upon EMS arrival, BS noted to be 65, s/p D50, BS 55 upon arrival to ER. Pt poor historian, but denies complaints at this time. Recent admit 08/29-09/01/16 for hypokalemia, hypoglycemia and FTT, d/c'd to Rehab facility. On 09/02/16 pt had mechanical fall at Rehab Facility, sent to ER for evaluation, Shoulder X-ray positive for Left Prox Humerus fx and referred to Ortho as outpatient. Seen in office today at which time pt complained of weakness, EMS called from office. On arrival, BP 103/62, HR 83, O2 sat 100% on 2L NC, Afebrile. WBC 14.9. Hgb 9.3, previously 9.6 on 09/10/16, 12.4 on 08/30/16. BS 46. Lactic Acid 1.6. CXR with small left pleural effusion and or consolidation in LLL. S/p Rocephin/Zithro in ER. Review of Systems Except as stated in HPI: all other systems reviewed are Neg ROS: 14 point review of systems otherwise negative. Past Family Social History Past Medical History PMH: HTN, COPD, CAD, [place], Hepatitis A/B, Tobacco Abuse, DM and FTT Past Surgical History PAST SURGICAL HISTORY: Whipple, Cholecystectomy, Tonsillectomy Allergies: Coded Allergies: Sulfa (Unverified Allergy, Unknown, 09/21/16) Family History PAST FAMILY HISTORY: Reviewed. No h/o DM or CAD Social History PAST SOCIAL HISTORY: Drinks 1 beer daily. Smokes 1/4ppd. Negative for drugs. Physical Exam Vital Signs Vital Signs Date Time Temp Pulse Resp B/P Pulse Ox O2 Delivery O2 Flow Rate FiO2 09/21/16 16:15 85 16 106/57 100 Nasal Cannula 2 09/21/16 16:15 83 16 100 Nasal Cannula 2 09/21/16 15:55 99 Nasal Cannula 2 09/21/16 15:55 97.5 83 16 103/62 100 Physical Exam PE: GENERAL: Elderly, cachectic white male in no acute distress. HEENT: PERRLA, EOMI. No scleral icterus or conjunctival pallor. No lid lag or facial droop. CARDIOVASCULAR: Regular rate and rhythm. No obvious murmurs to auscultation. No chest tenderness to palpation. RESPIRATORY: No obvious rhonchi or wheezing. Clear to auscultation. Breath sounds equal bilaterally. GASTROINTESTINAL: Abdomen soft, non-tender, nondistended. BS normal. MUSCULOSKELETAL: Extremities without clubbing, cyanosis, or edema. No obvious deformities. LUE splint NEUROLOGICAL: Awake, alert and oriented x4, mild confusion, appears to be baseline. No focal neurologic deficits. Moving both upper and lower extremities spontaneously. Laboratory Laboratory Tests Test 09/21/16 16:25 White Blood Count 14.9 Red Blood Count 2.69 Hemoglobin 9.3 Hematocrit 27.1 Mean Corpuscular Volume 100.7 Mean Corpuscular Hemoglobin 34.4 Mean Corpuscular Hemoglobin 34.1 Concent Red Cell Distribution Width 15.5 Platelet Count 258 Mean Platelet Volume 9.9 Neutrophils (%) (Auto) 86.4 Lymphocytes (%) (Auto) 7.2 Monocytes (%) (Auto) 6.1 Eosinophils (%) (Auto) 0.1 Basophils (%) (Auto) 0.2 Neutrophils # (Auto) 12.9 Lymphocytes # (Auto) 1.1 Monocytes # (Auto) 0.9 Eosinophils # (Auto) 0.0 Basophils # (Auto) 0.0 CBC Comment DIFF FINAL Differential Comment Sodium Level 140 Potassium Level 3.9 Chloride Level 102 Carbon Dioxide Level 28.3 Anion Gap 10 Blood Urea Nitrogen 47 Creatinine 1.28 Estimat Glomerular Filtration 54 Rate Random Glucose 46 Calcium Level 7.7 Magnesium Level 2.0 Troponin I 0.02 Date/Time Procedure Status Source Growth 09/21/16 18:10 Aerobic Blood Culture Received Blood Peripheral Pending 09/21/16 18:10 Anaerobic Blood Culture Received Blood Peripheral Pending Result Diagram: 09/21/16 1625 09/21/16 1625 Assessment and Plan Problem List: (1) PNA (pneumonia) ICD Code: J18.9 Status: Acute (2) Hypoglycemia ICD Code: E16.2 Status: Acute (3) Failure to thrive in adult ICD Code: R62.7 Status: Acute (4) Anemia ICD Code: D64.9 Status: Acute (5) Tobacco abuse ICD Code: Z72.0 Status: Acute (6) DNR (do not resuscitate) ICD Code: Z66 Status: Acute Assessment and Plan A/P: 1. PNA: CXR w/ LLL consolidation, images reviewed by me, WBC 14.9, afebrile. S/p Blood Cultures, Rocephin/Zithro in ER, follow up cultures, continue IV Abx, DuoNeb prn, Symbicort, Mucinex. 2. Hypoglycemia: Recent admit 08/29/16 for same, on Insulin per review of home meds, will hold. Likely secondary to malnutrition/FTT. Check Hgb A1c. 3. FTT: Chronic. S/p Nutrition Consult on last admit w/ recommendation for Glucerna and MVT, will resume both. PT for eval/tx. 4. Anemia: Hgb 9.3, previously 9.6 on 09/10/16, 12.4 on 08/31/16, no active bleeding. Will monitor. Repeat labs in am. 5. Tobacco Abuse: Pt counselled, Ativan/NicoDerm prn if needed. 6. DNR: Code Status confirmed, DNR order placed. 7. DVT Prophylaxis: SCD/Teds. 8. Social work for d/c planning as needed. 9. Case discussed w/ day physician at length. Problem Qualifiers (1) Anemia: Qualified Code: D64.9 - Anemia, unspecified type Zakia Good MD Sep 21, 2016 19:12
[2016-09-21] MEDS ORDERED: BISACODYL 10 MG SUPP PR PRN (19:15)
[2016-09-21] MEDS ORDERED: MORPHINE SULFATE 4 MG/ML INJ IV PRN (19:15)
[2016-09-21] MEDS ORDERED: SODIUM CHLORIDE 0.9% FLUSH 5 ML FLUSH FLUSH PRN (19:15)
[2016-09-21] MEDS ORDERED: ACETAMINOPHEN 325 MG TAB PO PRN (19:15)
[2016-09-21] MEDS ORDERED: GLUCAGON 1 MG/ML VIAL OTHER PRN (19:15)
[2016-09-21] MEDS ORDERED: ONDANSETRON HCL 4 MG/2 ML VIAL IVP PRN (19:15)
[2016-09-21] MEDS ORDERED: RESP: ALBUTEROL 2.5 MG/IPRATROPIUM 0.5 MG NEB (PRN) NEB (19:15)
[2016-09-21 19:21] VITALS: BP 107/65; PULSE 90; RESP 18; O2SAT 98
[2016-09-21] MEDS: SODIUM CHLOR 0.9% 1000 ML INJ 1,000 ML IV SCH (19:21)
[2016-09-21] MEDS: SODIUM CHLORIDE 0.9% FLUSH 5 ML FLUSH FLUSH SCH (20:51)
[2016-09-21] MEDS ORDERED: INSULIN ASPART SUPPLEMENTAL SCALE SQ SCH (21:00)
[2016-09-21 21:30] VITALS: BP 106/62; PULSE 87; RESP 18; O2SAT 94
[2016-09-21] MEDS: CILOSTAZOL 100 MG TAB PO SCH (21:59)
[2016-09-21] MEDS: BUDESONIDE-FORMOTEROL 160/4.5 MCG INHALER INH SCH (21:59)
[2016-09-21] MEDS: guaiFENesin E.R. 600 MG TAB PO SCH (21:59)
[2016-09-22] VITALS (10 sets, daily range): BP systolic 89–123; BP diastolic 50–64; PULSE 71–98; RESP 16–22; TEMP 97–97.7; O2SAT 93–100
[2016-09-22 03:12] LABS: BACTERIA, URINE MOD /hpf; BLOOD, URINE SMALL (NEG); GLUCOSE,URINE NEG (NEG); KETONE, URINE NEG (NEG); NITRITE,URINE NEG (NEG); PH, URINE 5.5 (5.0-8.5)
[2016-09-22 03:13] LABS: COMMENT (UR) CATH-CULTURE IND; CULTURE IF INDICATED CATH CULTURE IND; URINE COLOR LIGHT-ORANGE (YELLW/STRAW)
[2016-09-22] MEDS: SODIUM CHLOR 0.9% 1000 ML INJ 1,000 ML IV SCH ×2 (05:06→15:22)
[2016-09-22 06:19] LABS: AUTOMATED NEUTROPHIL # 10.8 TH/MM3 (1.8-7.7); BASOPHIL # 0.1 TH/MM3 (0-0.2); BASOPHIL % 0.5 % (0.0-2.0); EOSINOPHIL # 0.1 TH/MM3 (0-0.4); HEMO FLAGS DIFF FINAL; LYMPH % 9.2 % (9.0-44.0); LYMPHOCYTE # 1.2 TH/MM3 (1.0-4.8); MEAN CORPUSCULAR HEMOGLOBIN 33.9 PG (27.0-34.0); MEAN CORPUSCULAR HGB CONC 33.9 % (32.0-36.0); MONO % 5.6 % (0.0-8.0); NEUT % 83.7 % (16.0-70.0); PLATELET COUNT 220 TH/MM3 (150-450); RED CELL DISTRIBUTION WIDTH 15.3 % (11.6-17.2); WHITE BLOOD COUNT 12.9 TH/MM3 (4.0-11.0)
[2016-09-22 06:50] LABS: ALKALINE PHOSPHATASE 351 U/L (45-117); ALT (GPT) 41 U/L (12-78); ANION GAP 10 MEQ/L (5-15); AST (GOT) 68 U/L (15-37); BICARBONATE 27.3 MEQ/L (21.0-32.0); BLOOD UREA NITROGEN 47 MG/DL (7-18); CALCIUM-PROTEIN CORRECTED 8.8 MG/DL (8.5-10.1); CHLORIDE 106 MEQ/L (98-107); GLOMERULAR FILTRATION RATE 59 ML/MIN (>89); POTASSIUM 3.5 MEQ/L (3.5-5.1); SODIUM (NA) 143 MEQ/L (136-145); TOTAL BILIRUBIN ADULT 0.5 MG/DL (0.2-1.0)
[2016-09-22] MEDS: INSULIN ASPART SUPPLEMENTAL SCALE SQ SCH ×4 (07:00→21:22)
[2016-09-22] MEDS: SODIUM CHLORIDE 0.9% FLUSH 5 ML FLUSH FLUSH SCH ×2 (08:55→21:00)
[2016-09-22] MEDS: BUDESONIDE-FORMOTEROL 160/4.5 MCG INHALER INH SCH ×2 (08:56→21:22)
[2016-09-22] MEDS: guaiFENesin E.R. 600 MG TAB PO SCH ×2 (08:56→21:21)
[2016-09-22] MEDS: MULTIVITAMIN TAB PO SCH (08:57)
[2016-09-22] MEDS: CILOSTAZOL 100 MG TAB PO SCH ×2 (10:16→21:21)
--- NOTE | 2016-09-22 13:07 | HHI.PR ---
Subjective Remarks Patient seen and examined his roommate the bedside with the nurse He think it's May by his awareness 2016, he thinks the president is Heath, he thing he is in [facility] obviously he is not fully oriented, he denied any pain or cough however he still on 4 L nasal cannula, he is afebrile Objective Vitals Vital Signs Date Time Temp Pulse Resp B/P Pulse Ox O2 Delivery O2 Flow Rate FiO2 09/22/16 10:00 87 22 105/61 96 Nasal Cannula 4 09/22/16 09:00 80 16 105/59 99 Nasal Cannula 4 09/22/16 08:05 100 Nasal Cannula 4 09/22/16 08:00 81 18 108/59 99 Nasal Cannula 4 09/22/16 07:00 77 20 105/59 99 Nasal Cannula 4 09/22/16 04:30 75 16 112/63 100 Nasal Cannula 4 09/22/16 00:38 71 18 123/61 93 Nasal Cannula 2 09/21/16 21:30 87 18 106/62 94 Nasal Cannula 2 09/21/16 19:21 90 18 107/65 98 Nasal Cannula 2 09/21/16 16:15 85 16 106/57 100 Nasal Cannula 2 09/21/16 16:15 83 16 100 Nasal Cannula 2 09/21/16 15:55 99 Nasal Cannula 2 09/21/16 15:55 97.5 83 16 103/62 100 I/O 09/21/16 09/21/16 09/21/16 09/22/16 09/22/16 09/22/16 07:00 15:00 23:00 07:00 15:00 23:00 Intake Total 120 ml 240 ml Output Total 800 ml 300 ml Balance 120 ml -800 ml -60 ml Intake Oral 120 ml 240 ml Output Urine Total 800 ml 300 ml # Voids 1 # Bowel Movements 1 Result Diagram: 09/22/16 0552 09/22/16 0552 Objective Remarks GENERAL: : Elderly, cachectic white male in no acute distress. SKIN: No rashes, warm and dry HEAD: Atraumatic. Normocephalic. EYES: Pupils equal round and reactive. Extraocular motions intact. No scleral icterus. ENT: Nose without bleeding, or drainage, Airway patent. NECK: Trachea midline. Supple CARDIOVASCULAR: Regular rate and rhythm without murmurs, gallops, or rubs. RESPIRATORY: Fair air entry bilaterally. No wheezes, rales, or rhonchi. GASTROINTESTINAL: Abdomen soft, non-tender, nondistended. Positive bowel sounds MUSCULOSKELETAL: Extremities without clubbing, cyanosis, or edema. Pedal pulses appreciated NEUROLOGICAL: Awake alert but confused. Moves all extremity. Speech is little bit slurry because of dentures.no focal neurological deficit A/P Problem List: (1) PNA (pneumonia) ICD Code: J18.9 Status: Acute (2) Hypoglycemia ICD Code: E16.2 Status: Acute (3) Failure to thrive in adult ICD Code: R62.7 Status: Acute (4) Anemia ICD Code: D64.9 Status: Acute (5) Tobacco abuse ICD Code: Z72.0 Status: Acute (6) DNR (do not resuscitate) ICD Code: Z66 Status: Acute Assessment and Plan 09/22/16: Patient is confused he seemed the month is May but he is aware of the year, he think the president is Hoverink, he denied any pain or cough however he is on 4 L of oxygen, continue iv antibiotic, DuoNeb and oxygen Close monitoring Accu-Chek, will consider starting D5 iv fluid if blood sugar low A/P: PNA: CXR w/ LLL consolidation, images reviewed by me, WBC 14.9, afebrile. S/ p Blood Cultures, Rocephin/Zithro in ER, follow up cultures, continue IV Abx, DuoNeb prn, Symbicort, Mucinex. Hypoglycemia: Recent admit 08/29/16 for same, on Insulin per review of home meds, will hold. Likely secondary to malnutrition/FTT. Pending Hgb A1c. FTT: Chronic. S/p Nutrition Consult on last admit w/ recommendation for Glucerna and MVT, will resume both. PT for eval/tx. Anemia: Hgb 9.3, previously 9.6 on 09/10/16, 12.4 on 08/31/16, no active bleeding. monitor. Repeat labs in am. Tobacco Abuse: Pt counselled, Ativan/NicoDerm prn if needed. DNR: Code Status confirmed, DNR order placed. DVT Prophylaxis: SCD/Teds. Problem Qualifiers (1) Anemia: Qualified Code: D64.9 - Anemia, unspecified type Nemou,Stewart MD Sep 22, 2016 13:07
[2016-09-22 13:44] LABS: HEMOGLOBIN A1a 1.2 %; HEMOGLOBIN A1b 1.6 %; HEMOGLOBIN Ao 84.5 %; HEMOGLOBIN LA1C 1.6 %; HEMOGLOBIN P3 3.8 %
[2016-09-22] MEDS: cefTRIAXone INJ 1,000 MG in SODIUM CHLORIDE 0.9% INJ 100 ML IV SCH (16:22)
[2016-09-22] MEDS: AZITHROMYCIN INJ 500 MG in SODIUM CHLOR 0.9% 250 ML INJ 250 ML IV SCH (17:16)
--- NOTE | 2016-09-22 19:55 | EKG ---
Date Performed: 09/21/2016 Time Performed: 16:09:06 PTAGE: 81 years EKG: PROBABLE ATRIAL FIBRILLATION LEFT ANTERIOR FASCICULAR BLOCK ABNORMAL QRS-T ANGLE ABNORMAL E CG Compared to the PREVIOUS TRACING from 08/29/16, no significant change DOCTOR: Edin Meza Interpretating Date/Time 09/22/2016 19:53:51
[2016-09-23] VITALS (9 sets, daily range): BP systolic 98–135; BP diastolic 55–78; PULSE 85–103; RESP 16–20; TEMP 97.5–98.5; O2SAT 93–99
[2016-09-23] MEDS: SODIUM CHLOR 0.9% 1000 ML INJ 1,000 ML IV SCH ×3 (00:57→23:53)
[2016-09-23] MEDS: ACETAMINOPHEN/HYDROcodone 325 MG/5 MG TAB PO PRN ×4 (02:20→20:50)
[2016-09-23] MEDS: INSULIN ASPART SUPPLEMENTAL SCALE SQ SCH ×4 (05:25→20:48)
[2016-09-23 07:04] LABS: AUTOMATED NEUTROPHIL # 6.8 TH/MM3 (1.8-7.7); BASOPHIL % 0.5 % (0.0-2.0); EOSINOPHIL # 0.1 TH/MM3 (0-0.4); EOSINOPHIL % 1.1 % (0.0-4.0); LYMPH % 16.3 % (9.0-44.0); LYMPHOCYTE # 1.5 TH/MM3 (1.0-4.8); MEAN CELL VOLUME 99.9 FL (80.0-100.0); MEAN CORPUSCULAR HEMOGLOBIN 33.9 PG (27.0-34.0); MEAN CORPUSCULAR HGB CONC 33.9 % (32.0-36.0); MONO % 6.4 % (0.0-8.0); NEUT % 75.7 % (16.0-70.0); PLATELET COUNT 179 TH/MM3 (150-450); RED BLOOD COUNT 1.93 MIL/MM3 (4.50-5.90); RED CELL DISTRIBUTION WIDTH 15.1 % (11.6-17.2)
[2016-09-23 07:29] LABS: BICARBONATE 29.4 MEQ/L (21.0-32.0)
[2016-09-23 07:40] LABS: HEMO FLAGS DIFF FINAL
[2016-09-23 07:43] LABS: CALCIUM-PROTEIN CORRECTED 8.6 MG/DL (8.5-10.1)
[2016-09-23 07:46] LABS: HEMATOCRIT 19.3 % (39.0-51.0)
--- NOTE | 2016-09-23 09:25 | HHI.PR ---
Subjective Remarks Follow up on pneumonia respiratory failure and acute anemia Patient resting in bed on O2 oxygen, his friend at the bedside please 2 week and barely answer simple questioning, his friend telling me patient had Whipple surgery long time ago in [facility] as a teaching experiment , will order records to be obtained from there. Today he had hemoglobin at 6, GI consulted workup to rule out hemolysis versus iron deficiency has been ordered Objective Vitals Vital Signs Date Time Temp Pulse Resp B/P Pulse Ox O2 Delivery O2 Flow Rate FiO2 09/23/16 08:00 97.9 98 16 100/59 96 09/23/16 04:00 Nasal Cannula 3.00 09/23/16 04:00 98.1 103 20 125/56 97 09/23/16 00:00 98.5 103 20 107/57 97 09/23/16 00:00 Nasal Cannula 3.00 09/22/16 21:30 110/64 09/22/16 20:02 98 09/22/16 20:00 97.7 94 20 89/52 98 09/22/16 20:00 Nasal Cannula 4.00 09/22/16 18:43 Nasal Cannula 4.00 09/22/16 16:00 97.0 87 20 95/50 95 09/22/16 10:00 87 22 105/61 96 Nasal Cannula 4 I/O 09/22/16 09/22/16 09/22/16 09/23/16 09/23/16 09/23/16 07:00 15:00 23:00 07:00 15:00 23:00 Intake Total 240 ml 1099 ml 1024 ml Output Total 800 ml 300 ml 625 ml 300 ml Balance -800 ml -60 ml 474 ml 724 ml Intake Oral 240 ml 240 ml 180 ml IV Total 859 ml 844 ml Output Urine Total 800 ml 300 ml 625 ml 300 ml # Voids 1 # Bowel Movements 1 1 Result Diagram: 09/23/16 0610 09/23/16 0610 Objective Remarks GENERAL: : Elderly, cachectic white male in no acute distress. SKIN: No rashes, warm and dry HEAD: Atraumatic. Normocephalic. EYES: Pupils equal round and reactive. Extraocular motions intact. No scleral icterus. ENT: Nose without bleeding, or drainage, Airway patent. NECK: Trachea midline. Supple CARDIOVASCULAR: Regular rate and rhythm without murmurs, gallops, or rubs. RESPIRATORY: Fair air entry bilaterally. No wheezes, rales, or rhonchi. GASTROINTESTINAL: Abdomen soft, non-tender, nondistended. Positive bowel sounds MUSCULOSKELETAL: Extremities without clubbing, cyanosis, or edema. Pedal pulses appreciated NEUROLOGICAL: Awake alert but confused. Moves all extremity. Speech is little bit slurry because of dentures.no focal neurological deficit A/P Problem List: (1) PNA (pneumonia) ICD Code: J18.9 Status: Acute (2) Hypoglycemia ICD Code: E16.2 Status: Acute (3) Failure to thrive in adult ICD Code: R62.7 Status: Acute (4) Anemia ICD Code: D64.9 Status: Acute (5) Tobacco abuse ICD Code: Z72.0 Status: Acute (6) DNR (do not resuscitate) ICD Code: Z66 Status: Acute Assessment and Plan PNA: CXR w/ LLL consolidation, images reviewed by me, WBC 14.9, afebrile. S/ p Blood Cultures, Rocephin/Zithro in ER, follow up cultures, continue IV Abx, DuoNeb prn, Symbicort, Mucinex. Hypoglycemia: Recent admit 08/29/16 for same, on Insulin per review of home meds, will hold. Likely secondary to malnutrition/FTT. Pending Hgb A1c. FTT: Chronic. S/p Nutrition Consult on last admit w/ recommendation for Glucerna and MVT, will resume both. PT for eval/tx. Acute on C .macrocityc normochromic Anemia: Hgb 9.3-6.3, no active bleeding. transfuse as needed , H&H, LDH , Haptoglobin r/o hemolysis, FBOT , GI consult , consider hematology consult r/o blood dischrasia Tobacco Abuse: Pt counselled, Ativan/NicoDerm prn if needed. DNR: Code Status confirmed, DNR order placed. DVT Prophylaxis: SCD/Teds. Of note: Patient friend stated that patient had Whipple surgery long time ago in [facility] Problem Qualifiers (1) Anemia: Qualified Code: D64.9 - Anemia, unspecified type Terry Cordero MD Sep 23, 2016 09:25
[2016-09-23] MEDS: guaiFENesin E.R. 600 MG TAB PO SCH ×2 (09:47→20:50)
[2016-09-23] MEDS: MULTIVITAMIN TAB PO SCH (09:47)
[2016-09-23] MEDS: SODIUM CHLORIDE 0.9% FLUSH 5 ML FLUSH FLUSH SCH ×2 (09:49→20:54)
[2016-09-23] MEDS: BUDESONIDE-FORMOTEROL 160/4.5 MCG INHALER INH SCH ×2 (09:49→20:50)
[2016-09-23] MEDS: CILOSTAZOL 100 MG TAB PO SCH ×2 (09:51→20:49)
[2016-09-23] MEDS: POTASSIUM CHLORIDE 20 MEQ CONTROLLED RELEASE TAB PO SCH ×3 (10:00→18:00)
[2016-09-23] MEDS ORDERED: FUROSEMIDE 20 MG/2 ML VIAL IV ONE (10:00)
[2016-09-23] MEDS ORDERED: INFLUENZA VIRUS VACCINE (QUADRIVALENT) 0.5 ML SYR IM ONE (10:00)
[2016-09-23] MEDS ORDERED: SODIUM CHLOR 0.9% 250 ML INJ 250 ML IV ONE (10:00)
[2016-09-23 10:58] LABS: HEMATOCRIT 20.2 % (39.0-51.0)
--- NOTE | 2016-09-23 11:12 | PD.CONS ---
HPI History of Present Illness This is a 81 year old male with a PMH of HTN, COPD, CAD, [place], Hepatitis A/B, Tobacco Abuse, DM and FTT who was brought to the ER by EMS secondary to generalized weakness while at Orthopedist's office. He is a poor historian but able to provide history and answer questions appropriately. He had a fall, and injured his left shoulder, not sure what happened, he thinks he fell in his sleep. Upon arrival, BS was 65, hgb 9.3. GI have been consulted for a drop in hgb to 6.6. No active bleeding reported. He denies nausea, vomiting, abdomen pain, hematochezia or melena. Last colonoscopy was years ago. He is not on any blood thinners. He drinks one beer a day. He reports loss of appetite, and failure to thrive. (Nelia Melendrez) PFSH Past Medical History PMH: HTN, COPD, CAD, [place], Hepatitis A/B, Tobacco Abuse, DM and FTT Past Surgical History PAST SURGICAL HISTORY: Whipple, Cholecystectomy, Tonsillectomy (Nelia Melendrez) Coded Allergies: Sulfa (Unverified Allergy, Unknown, 09/21/16) Medications Current Medications Medications (Trade) Dose Ordered Sig/Matthew Route Start Time Stop Time Status Last Admin (NS Flush) 2 ml UNSCH PRN IVF 09/21/16 16:15 (D50w (Vial) Inj) 25 ml UNSCH PRN IV PUSH 09/21/16 19:15 Glucagon 1 mg 1 mg UNSCH PRN OTHER 09/21/16 19:15 Ceftriaxone Sodium 1000 mg/ Sodium Chloride 100 ml @ 200 mls/hr Q24H IV 09/22/16 17:00 09/22/16 16:22 (Zithromax Inj/ NS 250 ml Inj) 250 ml @ 250 mls/hr Q24H IV 09/22/16 18:00 09/22/16 17:16 (Symbicort 160-4.5 Inh) 2 puff Q12HR INH 09/21/16 21:00 09/23/16 09:49 Guaifenesin 600 mg 600 mg BID PO 09/21/16 21:00 09/23/16 09:47 (NS 1000 ml Inj) 1,000 ml @ 100 mls/hr Q10H IV 09/21/16 19:06 09/23/16 05:23 (NS Flush) 2 ml UNSCH PRN FLUSH 09/21/16 19:15 (NS Flush) 2 ml BID FLUSH 09/21/16 21:00 09/23/16 09:49 (Zofran Inj) 4 mg Q6H PRN IVP 09/21/16 19:15 (Dulcolax Supp) 10 mg DAILY PRN OK 09/21/16 19:15 (Tylenol) 650 mg Q6H PRN PO 09/21/16 19:15 ([place] 5-325 Mg) 1 tab Q4H PRN PO 09/21/16 19:15 09/23/16 09:47 (Morphine Inj) 2 mg Q3H PRN IV 09/21/16 19:15 09/22/16 21:23 (Pletal) 100 mg BID PO 09/21/16 21:00 09/23/16 09:51 Multivitamins 1 tab 1 tab DAILY PO 09/22/16 09:00 09/23/16 09:47 (NS 250 ml Inj) 250 ml @ 15 mls/hr ONCE ONCE IV 09/23/16 10:00 09/24/16 02:39 (KCl) 40 meq Q4H PO 09/23/16 10:00 Family History No family hx of colon cancer Social History PAST SOCIAL HISTORY: Drinks 1 beer daily. Smokes 1/4ppd. Negative for drugs. (Nelia Melendrez) Review of Systems Constitutional: COMPLAINS OF: Fatigue, Change in appetite, DENIES: Weight loss Endocrine: DENIES: Polyuria Eyes: DENIES: Double Vision Respiratory: DENIES: Shortness of breath Cardiovascular: DENIES: Lower Extremity Edema Gastrointestinal: COMPLAINS OF: Anorexia, DENIES: Abdominal pain, Black stools , Bloody stools, Constipation, Diarrhea, Nausea, Vomiting, Difficulty Swallowing , Odynophagia, Swelling of Abdomen, Heartburn, Hematemesis Genitourinary: DENIES: Hematuria Musculoskeletal: DENIES: Neck pain Integumentary: DENIES: Jaundice Hematologic/lymphatic: COMPLAINS OF: Bruising Immunologic/allergic: DENIES: Eczema Neurologic: DENIES: Abnormal gait Psychiatric: DENIES: Anxiety (Nelia Melendrez) GI Exam Vitals I&O Vital Signs Date Time Temp Pulse Resp B/P Pulse Ox O2 Delivery O2 Flow Rate FiO2 09/23/16 08:00 97.9 98 16 100/59 96 09/23/16 04:00 Nasal Cannula 3.00 09/23/16 04:00 98.1 103 20 125/56 97 09/23/16 00:00 98.5 103 20 107/57 97 09/23/16 00:00 Nasal Cannula 3.00 09/22/16 21:30 110/64 09/22/16 20:02 98 09/22/16 20:00 97.7 94 20 89/52 98 09/22/16 20:00 Nasal Cannula 4.00 09/22/16 18:43 Nasal Cannula 4.00 09/22/16 16:00 97.0 87 20 95/50 95 I/O 09/22/16 09/22/16 09/22/16 09/23/16 09/23/16 09/23/16 07:00 15:00 23:00 07:00 15:00 23:00 Intake Total 240 ml 1099 ml 1024 ml Output Total 800 ml 300 ml 625 ml 300 ml Balance -800 ml -60 ml 474 ml 724 ml Intake Oral 240 ml 240 ml 180 ml IV Total 859 ml 844 ml Output Urine Total 800 ml 300 ml 625 ml 300 ml # Voids 1 # Bowel Movements 1 1 Imaging Last Impressions Chest X-Ray 09/21/16 1604 Signed Impressions: Service Date/Time: September 16:09 - CONCLUSION: Small left pleural effusion with associated atelectasis and/or airspace consolidation in the left lower lobe. Alfredo Briones MD Laboratory Test 09/23/16 06:10 White Blood Count 9.0 TH/MM3 Red Blood Count 1.93 MIL/MM3 Hemoglobin 6.6 GM/DL Hematocrit 19.3 % Mean Corpuscular Volume 99.9 FL Mean Corpuscular Hemoglobin 33.9 PG Mean Corpuscular Hemoglobin 33.9 % Concent Red Cell Distribution Width 15.1 % Platelet Count 179 TH/MM3 Mean Platelet Volume 10.1 FL Neutrophils (%) (Auto) 75.7 % Lymphocytes (%) (Auto) 16.3 % Monocytes (%) (Auto) 6.4 % Eosinophils (%) (Auto) 1.1 % Basophils (%) (Auto) 0.5 % Neutrophils # (Auto) 6.8 TH/MM3 Lymphocytes # (Auto) 1.5 TH/MM3 Monocytes # (Auto) 0.6 TH/MM3 Eosinophils # (Auto) 0.1 TH/MM3 Basophils # (Auto) 0.0 TH/MM3 CBC Comment DIFF FINAL Differential Comment Sodium Level 146 MEQ/L Potassium Level 3.0 MEQ/L Chloride Level 110 MEQ/L Carbon Dioxide Level 29.4 MEQ/L Anion Gap 7 MEQ/L Blood Urea Nitrogen 38 MG/DL Creatinine 1.06 MG/DL Estimat Glomerular Filtration 67 ML/MIN Rate Random Glucose 105 MG/DL Calcium Level 6.9 MG/DL Protein Corrected Calcium 8.6 MG/DL Total Protein 4.1 GM/DL Date/Time Procedure Status Source Growth 09/22/16 02:30 Urine Culture Received Urine Catheterized Urine Pending 09/21/16 18:10 Aerobic Blood Culture - Preliminary Resulted Blood Peripheral NO GROWTH IN 1 DAY 09/21/16 18:10 Anaerobic Blood Culture - Preliminary Resulted Blood Peripheral NO GROWTH IN 1 DAY Physical Examination HEENT: normocephalic; atraumatic; no jaundice. Throat is clear. NECK: Neck is supple, no JVD, no lymphadenopathy. CHEST: Chest is clear to auscultation and percussion. CARDIAC: Regular rate and rhythm with no murmur gallop or rubs. ABDOMEN: Soft, nondistended, nontender; no hepatosplenomegaly; bowel sounds are present in all four quadrants. EXTREMITIES: bandage to left shoulder SKIN: ecchymotic [employer]: No focal deficits; alert and oriented times three. (Nelia MelendrezP) Assessment and Plan Plan - Severe anemia- GI have been consulted for a drop in hgb to 6.6. No active bleeding reported. He denies nausea, vomiting, abdomen pain, hematochezia or melena. Last colonoscopy was years ago. He is not on any blood thinners. He drinks one beer a day. - Failure to thrive/ loss of appetite - Pneumonia, this is recurrent- abx - Hypoglycemia- per attending - Recent fall, broken shoulder- no plans for surgical intervention - DM, HTN per attending Plan: - JACQUIE - EGD/colonoscopy on Sunday - Obtain consents - Monitor hh - Transfuse as needed - Supportive care - Patient seen and examined by Dr. Mendez and myself and this note is written on his behalf. (Nelia Melendrez) Physician Comments Seen and examined with ROSALES, no active bleeding. EGD/Colonoscopy planned for sunday. Thank you (Trina Mendez MD) Nelia Melendrez Sep 23, 2016 11:12 Trina Mendez MD Sep 23, 2016 13:09
[2016-09-23] MEDS: cefTRIAXone INJ 1,000 MG in SODIUM CHLORIDE 0.9% INJ 100 ML IV SCH (17:08)
[2016-09-23] MEDS: AZITHROMYCIN INJ 500 MG in SODIUM CHLOR 0.9% 250 ML INJ 250 ML IV SCH (18:18)
[2016-09-23 21:16] LABS: HEMATOCRIT 27.1 % (39.0-51.0)
[2016-09-23 21:17] LABS: REVIEW FLAG FINAL
[2016-09-23] MEDS: PIPERACIL-TAZO 4.5 GM PREMIX 100 ML IV SCH (23:53)
[2016-09-24] VITALS (8 sets, daily range): BP systolic 106–137; BP diastolic 58–73; PULSE 74–100; RESP 16–18; TEMP 96.9–98; O2SAT 93–96
[2016-09-24 03:49] LABS: HEMATOCRIT 25.4 % (39.0-51.0)
[2016-09-24 03:54] LABS: REVIEW FLAG FINAL
[2016-09-24] MEDS: INSULIN ASPART SUPPLEMENTAL SCALE SQ SCH ×4 (05:49→20:17)
[2016-09-24] MEDS: PIPERACIL-TAZO 4.5 GM PREMIX 100 ML IV SCH ×4 (06:16→23:52)
[2016-09-24] MEDS: SODIUM CHLOR 0.9% 1000 ML INJ 1,000 ML IV SCH (07:06)
[2016-09-24 08:28] LABS: AUTOMATED NEUTROPHIL # 6.5 TH/MM3 (1.8-7.7); BASOPHIL # 0.1 TH/MM3 (0-0.2); BASOPHIL % 0.6 % (0.0-2.0); EOSINOPHIL # 0.2 TH/MM3 (0-0.4); HEMATOCRIT 25.8 % (39.0-51.0); LYMPH % 16.9 % (9.0-44.0); LYMPHOCYTE # 1.4 TH/MM3 (1.0-4.8); MEAN CELL VOLUME 91.1 FL (80.0-100.0); MEAN CORPUSCULAR HEMOGLOBIN 31.4 PG (27.0-34.0); MEAN CORPUSCULAR HGB CONC 34.5 % (32.0-36.0); NEUT % 75.5 % (16.0-70.0); PLATELET COUNT 152 TH/MM3 (150-450); RED BLOOD COUNT 2.83 MIL/MM3 (4.50-5.90); RED CELL DISTRIBUTION WIDTH 26.2 % (11.6-17.2); WHITE BLOOD COUNT 8.6 TH/MM3 (4.0-11.0)
[2016-09-24] MEDS: MULTIVITAMIN TAB PO SCH (08:38)
[2016-09-24] MEDS: guaiFENesin E.R. 600 MG TAB PO SCH ×2 (08:38→20:14)
[2016-09-24 08:42] LABS: BICARBONATE 28.6 MEQ/L (21.0-32.0)
[2016-09-24] MEDS: CILOSTAZOL 100 MG TAB PO SCH ×2 (08:43→20:16)
[2016-09-24] MEDS: BUDESONIDE-FORMOTEROL 160/4.5 MCG INHALER INH SCH ×2 (08:44→20:17)
[2016-09-24 08:54] LABS: HEMO FLAGS AUTO DIFF
[2016-09-24 09:06] LABS: CALCIUM-PROTEIN CORRECTED 8.8 MG/DL (8.5-10.1)
[2016-09-24] MEDS: 1/2 NS + KCL 20 MEQ INJ 1,000 ML IV SCH ×3 (10:30→23:52)
[2016-09-24 10:37] LABS: SCAN/DIFF AUTO DIFF CONFIRMED; TARGET CELLS 1+ (NORMAL)
--- NOTE | 2016-09-24 12:04 | HHI.PR ---
Subjective Remarks Follow-up pneumonia and anemia. Patient has no complaints tolerating 2 L nasal cannula. Undecided to undergo endoscopy. Discussed with RN, discontinue Ward catheter patient has no urinary complaints. Objective Vitals Vital Signs Date Time Temp Pulse Resp B/P Pulse Ox O2 Delivery O2 Flow Rate FiO2 09/24/16 08:03 96.9 96 18 111/65 93 09/24/16 04:00 Nasal Cannula 2.00 09/24/16 04:00 97.4 98 18 110/58 95 09/24/16 00:00 97.4 95 18 122/58 96 09/24/16 00:00 Nasal Cannula 2.00 09/23/16 20:50 Nasal Cannula 2.00 09/23/16 20:00 97.5 98 20 113/66 95 09/23/16 20:00 Nasal Cannula 2.00 09/23/16 18:35 94 09/23/16 16:00 98.1 91 16 102/55 93 09/23/16 13:35 98.2 85 16 135/78 99 09/23/16 13:01 98.4 96 18 98/57 97 I/O 09/23/16 09/23/16 09/23/16 09/24/16 09/24/16 09/24/16 07:00 15:00 23:00 07:00 15:00 23:00 Intake Total 1024 ml 480 ml 960 ml 940 ml Output Total 300 ml 600 ml 1050 ml 750 ml Balance 724 ml -120 ml -90 ml 190 ml Intake Oral 180 ml 480 ml 120 ml 120 ml IV Total 844 ml 840 ml 820 ml Output Urine Total 300 ml 600 ml 1050 ml 750 ml # Bowel Movements 1 1 1 1 Result Diagram: 09/24/16 0640 09/24/16 0640 Imaging Last Impressions Chest X-Ray 09/21/16 1604 Signed Impressions: Service Date/Time: September 16:09 - CONCLUSION: Small left pleural effusion with associated atelectasis and/or airspace consolidation in the left lower lobe. Alfredo Briones MD Objective Remarks GENERAL: : Elderly, cachectic white male in no acute distress. SKIN: No rashes, warm and dry HEAD: Atraumatic. Normocephalic. EYES: Pupils equal round and reactive. Extraocular motions intact. No scleral icterus. ENT: Nose without bleeding, or drainage, Airway patent. NECK: Trachea midline. Supple CARDIOVASCULAR: Regular rate and rhythm without murmurs, gallops, or rubs. RESPIRATORY: Fair air entry bilaterally. No wheezes, rales, or rhonchi. GASTROINTESTINAL: Abdomen soft, non-tender, nondistended. Positive bowel sounds MUSCULOSKELETAL: Extremities without clubbing, cyanosis, or edema. Pedal pulses appreciated NEUROLOGICAL: Awake alert with generalized weakness. A/P Problem List: (1) PNA (pneumonia) ICD Code: J18.9 Status: Acute (2) Hypoglycemia ICD Code: E16.2 Status: Acute (3) Failure to thrive in adult ICD Code: R62.7 Status: Acute (4) Anemia ICD Code: D64.9 Status: Acute (5) Tobacco abuse ICD Code: Z72.0 Status: Acute (6) DNR (do not resuscitate) ICD Code: Z66 Status: Acute Assessment and Plan Sepsis with leukocytosis, tachycardia and tachypnea. Improving. Blood and urine cultures growing Escherichia coli continue IV Rocephin and Zithromax PNA: CXR w/ LLL consolidation, images reviewed by me, WBC 14.9, afebrile. S/p Blood Cultures, Rocephin/Zithro in ER, follow up cultures, continue IV Abx, DuoNeb prn, Symbicort, Mucinex. Hypoglycemia: Recent admit 08/29/16 for same, on Insulin per review of home meds , will hold. Likely secondary to malnutrition/FTT. Hgb A1c 6.9. FTT: Chronic. S/p Nutrition Consult on last admit w/ recommendation for Glucerna and MVT, will resume both. PT recommends rehabilitation Acute on chronic Anemia: Doubt hemolysis with normal haptoglobin and bilirubin. Guaiac negative. GI consult for endoscopy, consider hematology consult r/o blood dyscrasia. I am concerned of underlying malignancy history of Whipple surgery Hypernatremia switched to hypotonic fluid. Repeat BMP and magnesium in the morning Discontinue Ward catheter Tobacco Abuse: Pt counselled, Ativan/NicoDerm prn if needed. DNR: Code Status confirmed, DNR order placed. DVT Prophylaxis: SCD/Teds. We will hold off with pharmacological prophylaxis secondary to anemia Discharge Planning Rehab Problem Qualifiers (1) Anemia: Qualified Code: D64.9 - Anemia, unspecified type Daryl Curtis MD Sep 24, 2016 12:04
--- NOTE | 2016-09-24 13:19 | HHI.GIFU ---
Subjective Remarks 81 yo male lying in bed in no apparent distress. Patient is a poor historian. ( Ingrid Pete) Objective Vitals I&O Vital Signs Date Time Temp Pulse Resp B/P Pulse Ox O2 Delivery O2 Flow Rate FiO2 09/24/16 08:03 96.9 96 18 111/65 93 09/24/16 04:00 Nasal Cannula 2.00 09/24/16 04:00 97.4 98 18 110/58 95 09/24/16 00:00 97.4 95 18 122/58 96 09/24/16 00:00 Nasal Cannula 2.00 09/23/16 20:50 Nasal Cannula 2.00 09/23/16 20:00 97.5 98 20 113/66 95 09/23/16 20:00 Nasal Cannula 2.00 09/23/16 18:35 94 09/23/16 16:00 98.1 91 16 102/55 93 09/23/16 13:35 98.2 85 16 135/78 99 I/O 09/23/16 09/23/16 09/23/16 09/24/16 09/24/16 09/24/16 07:00 15:00 23:00 07:00 15:00 23:00 Intake Total 1024 ml 480 ml 960 ml 940 ml Output Total 300 ml 600 ml 1050 ml 750 ml Balance 724 ml -120 ml -90 ml 190 ml Intake Oral 180 ml 480 ml 120 ml 120 ml IV Total 844 ml 840 ml 820 ml Output Urine Total 300 ml 600 ml 1050 ml 750 ml # Bowel Movements 1 1 1 1 Laboratory Laboratory Tests Test 09/23/16 09/24/16 09/24/16 21:09 03:07 06:40 Hemoglobin 9.3 8.8 8.9 Hematocrit 27.1 25.4 25.8 Potassium Level 3.9 4.0 White Blood Count 8.6 Red Blood Count 2.83 Mean Corpuscular Volume 91.1 Mean Corpuscular Hemoglobin 31.4 Mean Corpuscular Hemoglobin 34.5 Concent Red Cell Distribution Width 26.2 Platelet Count 152 Mean Platelet Volume 9.7 Neutrophils (%) (Auto) 75.5 Lymphocytes (%) (Auto) 16.9 Monocytes (%) (Auto) 5.0 Eosinophils (%) (Auto) 2.0 Basophils (%) (Auto) 0.6 Neutrophils # (Auto) 6.5 Lymphocytes # (Auto) 1.4 Monocytes # (Auto) 0.4 Eosinophils # (Auto) 0.2 Basophils # (Auto) 0.1 CBC Comment AUTO DIFF Differential Comment AUTO DIFF CONFIRMED Target Cells 1+ Sodium Level 150 Chloride Level 115 Carbon Dioxide Level 28.6 Anion Gap 6 Blood Urea Nitrogen 29 Creatinine 0.78 Estimat Glomerular Filtration 95 Rate Random Glucose 67 Calcium Level 7.2 Protein Corrected Calcium 8.8 Total Protein 4.3 Date/Time Procedure Status Source Growth 09/24/16 06:15 Stool Occult Blood (RIYA) - Final Complete Stool Stool HEMOCCULT NEGATIVE 09/22/16 02:30 Urine Culture - Final Complete Urine Catheterized Urine Escherichia Coli 09/21/16 18:10 Aerobic Blood Culture - Preliminary Resulted Blood Peripheral NO GROWTH IN 3 DAYS 09/21/16 18:10 Anaerobic Blood Culture - Preliminary Resulted Blood Peripheral NO GROWTH IN 3 DAYS Imaging Last Impressions Chest X-Ray 09/21/16 1604 Signed Impressions: Service Date/Time: September 16:09 - CONCLUSION: Small left pleural effusion with associated atelectasis and/or airspace consolidation in the left lower lobe. Alfredo Briones MD Physical Exam HEENT: PERRLA; normocephalic; atraumatic; no jaundice. NECK: Neck is supple, no JVD, no lymphadenopathy. CHEST: CTA CARDIAC: RRR with no murmur gallop or rubs. ABDOMEN: Soft, nondistended, nontender; no hepatosplenomegaly; bowel sounds x 4 quadrants. EXTREMITIES: No clubbing, cyanosis, or edema. SKIN: Normal; no rash; no jaundice. OIL AND GAS RECRUITER: No focal deficits; A&O x3. (Ingrid Pete) Assessment and Plan Plan ASSESSMENT: - Severe anemia- GI have been consulted for a drop in hgb to 6.6. HH stable today, 8.9/25.8. Hemoccult negative. No active bleeding reported. He denies nausea, vomiting, abdominal pain, hematochezia or melena. Last colonoscopy was years ago. He is not on any blood thinners. He drinks one beer a day. - Failure to thrive/ loss of appetite - Pneumonia, this is recurrent- abx - Hypoglycemia- per attending - Recent fall, broken shoulder- no plans for surgical intervention - DM, HTN per attending PLAN: - EGD/colonoscopy on Sunday - Obtain consents - Clear liquid diet today - NPO after MN today - Monitor HH - Transfuse as needed - Supportive care - Further recommendations to follow based on results of above Patient seen and examined by Dr. Mendez and myself and this note is written on his behalf. (Ingrid Pete) Physician Comments Seen and examined with ROSALES, no active bleeding. EGD/Colonoscopy tomorrow. ( Trina Mendez MD) Ingrid Pete Sep 24, 2016 13:19 Trina Mendez MD Sep 24, 2016 15:17
[2016-09-24] MEDS ORDERED: PEG (High)/E-LYTE SOLN 4000 ML BTL PO ONE (16:00)
[2016-09-24] MEDS: AZITHROMYCIN INJ 500 MG in SODIUM CHLOR 0.9% 250 ML INJ 250 ML IV SCH (18:00)
[2016-09-24] MEDS ORDERED: MAGNESIUM CITRATE SOLN 300 ML BTL PO ONE (18:15)
[2016-09-24] MEDS: SODIUM CHLORIDE 0.9% FLUSH 5 ML FLUSH FLUSH SCH (20:16)
[2016-09-24] MEDS ORDERED: BISACODYL EC 5 MG TABEC PO ONE (21:00)
[2016-09-25] VITALS (9 sets, daily range): BP systolic 97–144; BP diastolic 60–72; PULSE 96–109; RESP 16–23; TEMP 97.3–98.1; O2SAT 93–98
[2016-09-25] MEDS: PIPERACIL-TAZO 4.5 GM PREMIX 100 ML IV SCH ×3 (05:37→15:52)
[2016-09-25] MEDS: INSULIN ASPART SUPPLEMENTAL SCALE SQ SCH ×2 (05:59→11:00)
[2016-09-25 07:44] LABS: BICARBONATE 24.8 MEQ/L (21.0-32.0); MAGNESIUM 1.7 MG/DL (1.5-2.5)
[2016-09-25 07:45] LABS: POTASSIUM 5.4 MEQ/L (3.5-5.1)
[2016-09-25] MEDS: guaiFENesin E.R. 600 MG TAB PO SCH ×2 (08:24→20:40)
[2016-09-25] MEDS: SODIUM CHLORIDE 0.9% FLUSH 5 ML FLUSH FLUSH SCH ×2 (08:24→20:42)
[2016-09-25] MEDS: MULTIVITAMIN TAB PO SCH (08:24)
[2016-09-25] MEDS: BUDESONIDE-FORMOTEROL 160/4.5 MCG INHALER INH SCH ×2 (08:24→20:41)
[2016-09-25] MEDS: CILOSTAZOL 100 MG TAB PO SCH ×2 (08:35→20:40)
[2016-09-25] MEDS ORDERED: PROPOFOL 200 MG/20 ML AMP IV ONE (10:40)
[2016-09-25] MEDS ORDERED: PEG (High)/E-LYTE SOLN 4000 ML BTL PO ONE (11:00)
--- NOTE | 2016-09-25 11:24 | GIPROC ---
[facility] [address] [facility]. [facility], [id number] EGD PROCEDURE REPORT EXAM DATE: 09/25/2016 PATIENT NAME: Jasper Jacob MR #: [id number] BIRTHDATE: 1935 ATTENDING: Trina Mendez MD ORDER #: [id number] PLANT PROTECTION SUPERVISOR: Ivette Kidd and Hillary Campos STATUS: inpatient INDICATIONS: The patient is a 81 yr old male here for an EGD due to epigastric abdominal pain and weight loss PROCEDURE PERFORMED: EGD w/ biopsy MEDICATIONS: None and Per Anesthesia. TOPICAL ANESTHETIC: CONSENT: The patient understands the risks and benefits of the procedure and understands that these risks include, but are not limited to: sedation, allergic reaction, infection, perforation and/or bleeding. Alternative means of evaluation and treatment include, among others: physical exam, x-rays, and/or surgical intervention. The patient elects to proceed with this endoscopic procedure. medical equipment was checked for proper function. Hand hygiene and appropriate measures for infection prevention was taken. After the risks, benefits and alternatives of the procedure were thoroughly explained, Informed consent was verified, confirmed and timeout was successfully executed by the treatment team. The patient was anesthetized with topical anesthesia and the EC-[id number] (Pedi C) and [id number] endoscope was introduced through the mouth and advanced to the second portion of the duodenum. Retroflexed views revealed a hiatal hernia The gastroscope was then slowly withdrawn and removed. ESOPHAGUS: There was LA Class B esophagitis noted. A biopsy was performed using cold forceps. Sample sent for histology. Anastomosis. STOMACH: There was erythematous severe gastritis in the gastric body. A biopsy was performed using cold forceps. ADVERSE EVENTS: There were no complications. IMPRESSIONS: 1. There was LA Class B esophagitis noted 2. Anastomosis 3. There was erythematous gastritis in the gastric body; biopsy was performed 4. Retroflexed views revealed a hiatal hernia RECOMMENDATIONS: 1. Await biopsy results. Biopsy results will not be ready for 7-10 days. If you don't hear from us in two weeks, call our office for biopsy results. 2. Anti-reflux regimen 3. Colonoscopy 4. Continue PPI PATIENT CONDITION: stable DISPOSITION: Inpatient REPEAT EXAM: Return 1 year EGD Trina Mendez MD eSigned: Trina Mendez MD 09/25/2016 11:23 AM cc: [id number]
--- NOTE | 2016-09-25 11:41 | HHI.PR ---
Subjective Remarks F/u PNA. Doing ok tolerated EGD does not want c scope for now will think about it dw rN Objective Vitals Vital Signs Date Time Temp Pulse Resp B/P Pulse Ox O2 Delivery O2 Flow Rate FiO2 09/25/16 11:12 91 18 92/64 99 09/25/16 11:08 91 16 89/55 97 09/25/16 11:04 97.6 90 16 96/64 97 09/25/16 08:32 98.0 104 23 144/60 97 09/25/16 08:00 105 09/25/16 08:00 Nasal Cannula 2.00 09/25/16 04:00 Nasal Cannula 2.00 09/25/16 04:00 97.3 103 18 104/64 93 09/25/16 00:00 Nasal Cannula 2.00 09/25/16 00:00 98.1 99 20 124/63 95 09/24/16 20:17 Nasal Cannula 2.00 09/24/16 20:02 94 09/24/16 20:00 97.8 98 16 118/70 95 09/24/16 16:03 97.3 89 18 137/73 96 09/24/16 12:03 98.0 100 18 106/59 94 I/O 09/24/16 09/24/16 09/24/16 09/25/16 09/25/16 09/25/16 07:00 15:00 23:00 07:00 15:00 23:00 Intake Total 940 ml 120 ml 896 ml 943 ml 300 ml Output Total 750 ml 800 ml 620 ml Balance 190 ml -680 ml 896 ml 323 ml 300 ml Intake Oral 120 ml 120 ml IV Total 820 ml 896 ml 943 ml 300 ml Output Urine Total 750 ml 800 ml 620 ml Bladder Scan Volume Amount 600 ml # Bowel Movements 1 1 4 Result Diagram: 09/24/16 0640 09/25/16 0655 Imaging Last Impressions Chest X-Ray 09/21/16 1604 Signed Impressions: Service Date/Time: September 16:09 - CONCLUSION: Small left pleural effusion with associated atelectasis and/or airspace consolidation in the left lower lobe. Alfredo Briones MD Objective Remarks GENERAL: : Elderly, cachectic white male in no acute distress. SKIN: No rashes, warm and dry HEAD: Atraumatic. Normocephalic. EYES: Pupils equal round and reactive. Extraocular motions intact. No scleral icterus. ENT: Nose without bleeding, or drainage, Airway patent. NECK: Trachea midline. Supple CARDIOVASCULAR: Regular rate and rhythm without murmurs, gallops, or rubs. RESPIRATORY: Fair air entry bilaterally. No wheezes, rales, or rhonchi. GASTROINTESTINAL: Abdomen soft, non-tender, nondistended. Positive bowel sounds MUSCULOSKELETAL: Extremities without clubbing, cyanosis, or edema. Pedal pulses appreciated NEUROLOGICAL: Awake alert with generalized weakness. Non focal A/P Problem List: (1) PNA (pneumonia) ICD Code: J18.9 Status: Acute (2) Hypoglycemia ICD Code: E16.2 Status: Acute (3) Failure to thrive in adult ICD Code: R62.7 Status: Acute (4) Anemia ICD Code: D64.9 Status: Acute (5) Tobacco abuse ICD Code: Z72.0 Status: Acute (6) DNR (do not resuscitate) ICD Code: Z66 Status: Acute Assessment and Plan Sepsis with leukocytosis, tachycardia and tachypnea. Improving. Blood and urine cultures growing Escherichia coli continue IV Zosyn 09/24 and Zithromax PNA: CXR w/ LLL consolidation, images reviewed by me, WBC 14.9, afebrile. S/p Blood Cultures, Rocephin/Zithro in ER, follow up cultures, continue IV Abx, DuoNeb prn, Symbicort, Mucinex. Hypoglycemia: Recent admit 08/29/16 for same, on Insulin per review of home meds , will hold. Likely secondary to malnutrition/FTT. Hgb A1c 6.9. Dc FS FTT: Chronic. S/p Nutrition Consult on last admit w/ recommendation for Glucerna and MVT, will resume both. PT recommends rehabilitation. Check Chest CT. Head CT and CT A/P without acute findings Acute on chronic Anemia: Doubt hemolysis with normal haptoglobin and bilirubin. Guaiac negative. EGD with esophagitis and gastritis. Continue PPI , antireflux mechanisms and polyp biopsy. GI consult for colonoscopy when patient agrees, consider hematology consult r/o blood dyscrasia. I am concerned of underlying malignancy history of Whipple surgery Hypernatremia switched to hypotonic fluid. Repeat BMP and magnesium improved Discontinue Ward catheter Tobacco Abuse: Pt counselled, Ativan/NicoDerm prn if needed. DNR: Code Status confirmed, DNR order placed. DVT Prophylaxis: SCD/Teds. We will hold off with pharmacological prophylaxis secondary to anemia Discharge Planning Rehab soon if he continues to refused c scope Problem Qualifiers (1) Anemia: Qualified Code: D64.9 - Anemia, unspecified type Daryl Curtis MD Sep 25, 2016 11:41
[2016-09-25] MEDS: 1/2 NS + KCL 20 MEQ INJ 1,000 ML IV SCH (14:23)
[2016-09-25] MEDS: AZITHROMYCIN INJ 500 MG in SODIUM CHLOR 0.9% 250 ML INJ 250 ML IV SCH (15:52)
[2016-09-25] MEDS ORDERED: LEVA750T PO (16:02)
[2016-09-25] MEDS ORDERED: SYMB160A INH (16:02)
[2016-09-25] MEDS ORDERED: IPRASOL NEB (16:02)
--- NOTE | 2016-09-25 16:03 | HHI.DCPOC ---
Discharge Care Plan Diagnosis: (1) PNA (pneumonia) Your Health Problems Are: Difficulty with ADL Exercise Tolerance Goals to Promote Your Health * To prevent worsening of your condition and complications * To maintain your health at the optimal level Directions to Meet Your Goals Take your medications as prescribed Follow your dietary instruction Follow activity as directed Keep your appointments as scheduled Take your immunizations and boosters as scheduled If your symptoms worsen call your PCP, if no PCP go to Urgent Care Center or Emergency Room Smoking is Dangerous to Your Health. Avoid second hand smoke Call the 24-hour hour crisis hotline for domestic abuse at Daryl Curtis MD Sep 25, 2016 16:03
--- NOTE | 2016-09-25 16:51 | RADRPT ---
EXAM DATE/TIME: 09/25/2016 16:26 [place] COMPARISON: CHEST SINGLE AP, September 21, 2016, 16:09. INDICATIONS : Evaluate pleural effusion RADIATION DOSE: 4.44 CTDIvol (mGy) MEDICAL HISTORY : Cardiovascular disease. Hypertension. SURGICAL HISTORY : Tonsillectomy. ENCOUNTER: Initial ACUITY: 1 day PAIN SCALE: 0/10 LOCATION: Chest TECHNIQUE: Volumetric scanning of the chest was performed. Using automated exposure control and adjustment of the mA and/or kV according to patient size, radiation dose was kept as low as reasonab ly achievable to obtain optimal diagnostic quality images. FINDINGS: There are moderate bilateral pleural effusions. There is increased density at the post erior aspect of the upper lobes bilaterally likely representing some atelectasis or consolidation. T here is atelectasis or consolidation at the posterior lower lungs bilaterally being more prominent on the left. The mediastinal structures appear grossly intact. The patient has pneumobilia. There is an area of sclerosis seen at right L1 pedicle. There is some sclerosis at the superior aspect of th e T11 vertebral body which may represent some minimal compression. Significant loss of height is not seen. CONCLUSION: 1. Moderate bilateral pleural effusions with accompanying areas of suspected atelectasis or consolida tion. 2. Focal sclerosis at the right L1 pedicle. This is nonspecific. Underlying causes that result in sc lerotic lesions need to be considered. One could perform a bone scan to determine if there are any ot her sclerotic lesions. No other focal lesions are seen in the visualized bony structures. 3. Suspected minimal compression at the superior aspect of the T11 vertebral body. Alfredo Vidales MD on September 25, 2016 at 16:40 Board Certified Radiologist. This report was verified electronically.
[2016-09-25] MEDS: COLLAGENASE OINT 30 GM TUBE TOP SCH (17:00)
[2016-09-26] VITALS (8 sets, daily range): BP systolic 107–133; BP diastolic 57–71; PULSE 72–104; RESP 16–24; TEMP 97.4–98; O2SAT 84–98
[2016-09-26] MEDS: PIPERACIL-TAZO 4.5 GM PREMIX 100 ML IV SCH ×4 (00:06→16:45)
[2016-09-26] MEDS: 1/2 NS + KCL 20 MEQ INJ 1,000 ML IV SCH ×3 (03:12→20:49)
[2016-09-26] MEDS: BUDESONIDE-FORMOTEROL 160/4.5 MCG INHALER INH SCH ×2 (08:07→20:51)
[2016-09-26] MEDS: CILOSTAZOL 100 MG TAB PO SCH ×2 (08:07→20:50)
[2016-09-26] MEDS: COLLAGENASE OINT 30 GM TUBE TOP SCH (08:07)
[2016-09-26] MEDS: MULTIVITAMIN TAB PO SCH (08:07)
[2016-09-26] MEDS: guaiFENesin E.R. 600 MG TAB PO SCH ×2 (08:07→20:50)
[2016-09-26] MEDS: SODIUM CHLORIDE 0.9% FLUSH 5 ML FLUSH FLUSH SCH ×2 (08:08→20:55)
[2016-09-26 08:16] LABS: BICARBONATE 22.1 MEQ/L (21.0-32.0); MAGNESIUM 1.7 MG/DL (1.5-2.5)
[2016-09-26 08:18] LABS: POTASSIUM 3.7 MEQ/L (3.5-5.1)
[2016-09-26] MEDS: DEXTROSE 50% IN WATER 50 ML VIAL(D50) IV PUSH PRN (08:25)
--- NOTE | 2016-09-26 10:09 | HHI.PR ---
Subjective Remarks Follow-up anemia. Refused colonoscopy. CT scan of the thorax results discussed with patient, patient has no respiratory complaints tolerating room air. States he has lesion in his lower back CT shows focal sclerosis at L1 pedicle aware he will need bone scan outpatient Objective Vitals Vital Signs Date Time Temp Pulse Resp B/P Pulse Ox O2 Delivery O2 Flow Rate FiO2 09/26/16 04:03 97.4 85 24 118/63 94 09/26/16 00:12 98.0 104 16 111/57 98 09/25/16 20:34 97.6 102 16 97/68 95 09/25/16 20:00 Nasal Cannula 2.00 09/25/16 20:00 96 09/25/16 18:08 96 21 09/25/16 16:04 97.4 97 21 104/72 96 09/25/16 12:21 97.7 109 21 100/60 98 09/25/16 11:12 91 18 92/64 99 09/25/16 11:08 91 16 89/55 97 09/25/16 11:04 97.6 90 16 96/64 97 09/25/16 10:30 I/O 09/25/16 09/25/16 09/25/16 09/26/16 09/26/16 09/26/16 07:00 15:00 23:00 07:00 15:00 23:00 Intake Total 943 ml 480 ml 60 ml 2000 ml Output Total 620 ml 300 ml 180 ml 150 ml Balance 323 ml 180 ml -120 ml 1850 ml Intake Oral 180 ml 60 ml IV Total 943 ml 300 ml 2000 ml Output Urine Total 620 ml 300 ml 180 ml 150 ml Bladder Scan Volume Amount 600 ml # Bowel Movements 4 5 3 3 Result Diagram: 09/24/16 0640 09/26/16 0721 Imaging Last Impressions Chest X-Ray 09/21/16 1604 Signed Impressions: Service Date/Time: September 16:09 - CONCLUSION: Small left pleural effusion with associated atelectasis and/or airspace consolidation in the left lower lobe. Alfredo Briones MD Objective Remarks GENERAL: : Elderly, cachectic white male in no acute distress. SKIN: No rashes, warm and dry HEAD: Atraumatic. Normocephalic. EYES: Pupils equal round and reactive. Extraocular motions intact. No scleral icterus. ENT: Nose without bleeding, or drainage, Airway patent. NECK: Trachea midline. Supple CARDIOVASCULAR: Regular rate and rhythm without murmurs, gallops, or rubs. RESPIRATORY: Fair air entry bilaterally. No wheezes, rales, or rhonchi. GASTROINTESTINAL: Abdomen soft, non-tender, nondistended. Positive bowel sounds MUSCULOSKELETAL: Extremities without clubbing, cyanosis, or edema. Pedal pulses appreciated NEUROLOGICAL: Awake alert with generalized weakness. A/P Problem List: (1) PNA (pneumonia) ICD Code: J18.9 Status: Acute (2) Hypoglycemia ICD Code: E16.2 Status: Acute (3) Failure to thrive in adult ICD Code: R62.7 Status: Acute (4) Anemia ICD Code: D64.9 Status: Acute (5) Tobacco abuse ICD Code: Z72.0 Status: Acute (6) DNR (do not resuscitate) ICD Code: Z66 Status: Acute Assessment and Plan Sepsis with leukocytosis, tachycardia and tachypnea. Improving. Blood and urine cultures growing Escherichia coli continue IV Zosyn 09/24 and Zithromax PNA: CXR w/ LLL consolidation, images reviewed by me, WBC 14.9, afebrile. S/p Blood Cultures, Rocephin/Zithro in ER, follow up cultures, continue IV Abx, DuoNeb prn, Symbicort, Mucinex. Stable on room air. Repeat chest x-ray in 6 weeks Hypoglycemia: Recent admit 08/29/16 for same, on Insulin per review of home meds , will hold. Likely secondary to malnutrition/FTT. Hgb A1c 6.9. Dc FS FTT: Chronic. S/p Nutrition Consult on last admit w/ recommendation for Glucerna and MVT, will resume both. PT recommends rehabilitation. Chest CT with moderate bilateral pleural effusions, focal sclerosis of the right L1 pedicle may undergo bone scan outpatient (patient states he has a lesion his lower back for sometime now). Head CT and CT A/P without acute findings Acute on chronic Anemia: Doubt hemolysis with normal haptoglobin and bilirubin. Guaiac negative. EGD with esophagitis and gastritis. Continue PPI , antireflux mechanisms and polyp biopsy. GI consulted for colonoscopy but patient refusing, consider hematology consult r/o blood dyscrasia. I am concerned of underlying malignancy history of Whipple surgery Hypernatremia switched to hypotonic fluid. Repeat BMP and magnesium improved Discontinue Ward catheter Tobacco Abuse: Pt counselled, Ativan/NicoDerm prn if needed. DNR: Code Status confirmed, DNR order placed. DVT Prophylaxis: SCD/Teds. We will hold off with pharmacological prophylaxis secondary to anemia Discharge Planning Rehab soon if he continues to refused c scope Problem Qualifiers (1) Anemia: Qualified Code: D64.9 - Anemia, unspecified type Daryl Curtis MD Sep 26, 2016 10:09
--- NOTE | 2016-09-26 13:25 | HHI.DS ---
Discharge Summary Admission Date Sep 23, 2016 at 15:01 Discharge Date: Sep 26, 2016 Admitting Diagnosis pneumonia, hypoglycemia, failure to thrive (1) PNA (pneumonia) ICD Code: J18.9 Diagnosis: Principal (2) Hypoglycemia ICD Code: E16.2 Diagnosis: Principal (3) Failure to thrive in adult ICD Code: R62.7 Diagnosis: Principal (4) Anemia ICD Code: D64.9 Diagnosis: Principal (5) Tobacco abuse ICD Code: Z72.0 Diagnosis: Secondary (6) DNR (do not resuscitate) ICD Code: Z66 Diagnosis: Secondary Procedures egd Brief History - From Admission This is an 81-year-old DNR male with a PMH of HTN, COPD, CAD, [place], Hepatitis A/B , Tobacco Abuse, DM and FTT who was brought to the ER by EMS secondary to generalized weakness while at Orthopedist's office. Upon EMS arrival, BS noted to be 65, s/p D50, BS 55 upon arrival to ER. Pt poor historian, but denies complaints at this time. Recent admit 08/29-09/01/16 for hypokalemia, hypoglycemia and FTT, d/c'd to Rehab facility. On 09/02/16 pt had mechanical fall at Rehab Facility, sent to ER for evaluation, Shoulder X-ray positive for Left Prox Humerus fx and referred to Ortho as outpatient. Seen in office today at which time pt complained of weakness, EMS called from office. On arrival, BP 103/62, HR 83, O2 sat 100% on 2L NC, Afebrile. WBC 14.9. Hgb 9.3, previously 9.6 on 09/10/16, 12.4 on 08/30/16. BS 46. Lactic Acid 1.6. CXR with small left pleural effusion and or consolidation in LLL. S/p Rocephin/Zithro in ER. CBC/BMP: 09/24/16 0640 09/26/16 0721 Significant Findings Laboratory Tests Test 09/23/16 09/24/16 09/24/16 09/25/16 21:09 03:07 06:40 06:55 Hemoglobin 9.3 GM/DL 8.8 GM/DL 8.9 GM/DL (13.0-17.0) (13.0-17.0) (13.0-17.0) Hematocrit 27.1 % 25.4 % 25.8 % (39.0-51.0) (39.0-51.0) (39.0-51.0) Red Blood Count 2.83 MIL/MM3 (4.50-5.90) Red Cell Distribution Width 26.2 % (11.6-17.2) Neutrophils (%) (Auto) 75.5 % (16.0-70.0) Target Cells 1+ (NORMAL) Sodium Level 150 MEQ/L 146 MEQ/L (136-145) (136-145) Chloride Level 115 MEQ/L 112 MEQ/L (98-107) (98-107) Blood Urea Nitrogen 29 MG/DL (7-18) 21 MG/DL (7-18) Random Glucose 67 MG/DL 57 MG/DL (74-106) (74-106) Calcium Level 7.2 MG/DL 7.5 MG/DL (8.5-10.1) (8.5-10.1) Total Protein 4.3 GM/DL (6.4-8.2) Potassium Level 5.4 MEQ/L (3.5-5.1) Test 09/26/16 07:21 Chloride Level 112 MEQ/L (98-107) Blood Urea Nitrogen 19 MG/DL (7-18) Random Glucose 35 MG/DL (74-106) Calcium Level 7.6 MG/DL (8.5-10.1) Imaging Last Impressions Chest X-Ray 09/21/16 1604 Signed Impressions: Service Date/Time: September 16:09 - CONCLUSION: Small left pleural effusion with associated atelectasis and/or airspace consolidation in the left lower lobe. Alfredo Briones MD PE at Discharge GENERAL: : Elderly, cachectic white male in no acute distress. SKIN: No rashes, warm and dry HEAD: Atraumatic. Normocephalic. EYES: Pupils equal round and reactive. Extraocular motions intact. No scleral icterus. ENT: Nose without bleeding, or drainage, Airway patent. NECK: Trachea midline. Supple CARDIOVASCULAR: Regular rate and rhythm without murmurs, gallops, or rubs. RESPIRATORY: Fair air entry bilaterally. No wheezes, rales, or rhonchi. GASTROINTESTINAL: Abdomen soft, non-tender, nondistended. Positive bowel sounds MUSCULOSKELETAL: Extremities without clubbing, cyanosis, or edema. Pedal pulses appreciated NEUROLOGICAL: Awake alert with generalized weakness. Hospital Course Sepsis with leukocytosis, tachycardia and tachypnea. Improving. Blood and urine cultures growing Escherichia coli continue IV Zosyn 09/24 and Zithromax PNA: CXR w/ LLL consolidation, images reviewed by me, WBC 14.9, afebrile. S/p Blood Cultures, Rocephin/Zithro in ER, follow up cultures, continue IV Abx, DuoNeb prn, Symbicort, Mucinex. Stable on room air. Repeat chest x-ray in 6 weeks Hypoglycemia: Recent admit 08/29/16 for same, on Insulin per review of home meds , will hold. Likely secondary to malnutrition/FTT. Hgb A1c 6.9. Dc FS FTT: Chronic. S/p Nutrition Consult on last admit w/ recommendation for Glucerna and MVT, will resume both. PT recommends rehabilitation. Chest CT with moderate bilateral pleural effusions, focal sclerosis of the right L1 pedicle may undergo bone scan outpatient (patient states he has a lesion his lower back for sometime now). Head CT and CT A/P without acute findings Acute on chronic Anemia: Doubt hemolysis with normal haptoglobin and bilirubin. Guaiac negative. EGD with esophagitis and gastritis. Continue PPI , antireflux mechanisms and polyp biopsy. GI consulted for colonoscopy but patient refusing, consider hematology consult r/o blood dyscrasia. I am concerned of underlying malignancy history of Whipple surgery Hypernatremia switched to hypotonic fluid. Repeat BMP and magnesium improved Discontinue Ward catheter Tobacco Abuse: Pt counselled, Ativan/NicoDerm prn if needed. Hypoglycemia fROM decrease oral intake. Improved with hypoglycemia protocol. A1c 6.9. DNR: Code Status confirmed, DNR order placed. DVT Prophylaxis: SCD/Teds. We will hold off with pharmacological prophylaxis secondary to anemia Pt Condition on Discharge: Stable Discharge Disposition: Discharge to SNF Discharge Time: > 30 minutes Discharge Instructions DIET: Follow Instructions for: As Tolerated, No Restrictions Activities you can perform: Regular-No Restrictions Activities to Avoid: Driving New Orders: X-RAY CHEST PA & LAT - 6 Weeks New Medications: Levofloxacin (Levaquin) 750 Mg Tab 750 MG PO DAILY Infection #8 Ref 0 TAB Budesonide-Formoterol Inh (Symbicort Inh) 160-4.5 Mcg/Act Aero 2 PUFF INH Q12HR Breathing Treatment #1 INHALER Ipratropium-Albuterol Neb (Duoneb) 0.5-2.5 Mg/3 Ml Neb 1 AMPULE NEB Q4HR NEB PRN SOB/WHEEZING #120 ML Continued Medications: Cilostazol (Cilostazol) 100 Mg Tab 100 MG PO BID INTERMITTENT CLAUDICATION Ref 0 TAB Insulin Lispro (Human) Inj (Humalog Inj) 1,000 Unit/10 Ml Vial 1 UNITS SQ DIRECTED Max dose at bedtime:( )units; sugars< 70,(0)units; sugars 150-199,(1)unit; sugars 200-249,(3)units; sugars 250-299,(5)units; sugars 300-349,(7)units; sugars more than 349,(9)units. Blood Sugar Management # 1 Ref 0 VIAL Multiple Vitamin (Thera/Beta-Carotene) 1 Tab Tab 1 TAB PO DAILY vitamin Days 30 Ref 0 TAB Daryl Curtis MD Sep 26, 2016 13:25
--- NOTE | 2016-09-26 15:00 | HHI.GIFU ---
Subjective Remarks Very weak an emaciated, refused colonoscopy did not want to do prep (Diana Meek) Objective Vitals I&O Vital Signs Date Time Temp Pulse Resp B/P Pulse Ox O2 Delivery O2 Flow Rate FiO2 09/26/16 12:00 97.6 87 18 133/66 94 09/26/16 08:00 97.4 101 18 107/71 84 09/26/16 08:00 Nasal Cannula 2.00 09/26/16 04:03 97.4 85 24 118/63 94 09/26/16 00:12 98.0 104 16 111/57 98 09/25/16 20:34 97.6 102 16 97/68 95 09/25/16 20:00 Nasal Cannula 2.00 09/25/16 20:00 96 09/25/16 18:08 96 21 09/25/16 16:04 97.4 97 21 104/72 96 I/O 09/25/16 09/25/16 09/25/16 09/26/16 09/26/16 09/26/16 07:00 15:00 23:00 07:00 15:00 23:00 Intake Total 943 ml 480 ml 60 ml 2000 ml Output Total 620 ml 300 ml 180 ml 150 ml Balance 323 ml 180 ml -120 ml 1850 ml Intake Oral 180 ml 60 ml IV Total 943 ml 300 ml 2000 ml Output Urine Total 620 ml 300 ml 180 ml 150 ml Bladder Scan Volume Amount 600 ml # Bowel Movements 4 5 3 3 Laboratory Laboratory Tests Test 09/26/16 07:21 Sodium Level 145 Potassium Level 3.7 Chloride Level 112 Carbon Dioxide Level 22.1 Anion Gap 11 Blood Urea Nitrogen 19 Creatinine 0.76 Estimat Glomerular Filtration 98 Rate Random Glucose 35 Calcium Level 7.6 Magnesium Level 1.7 Date/Time Procedure Status Source Growth 09/24/16 06:15 Stool Occult Blood (RIYA) - Final Complete Stool Stool HEMOCCULT NEGATIVE 09/22/16 02:30 Urine Culture - Final Complete Urine Catheterized Urine Escherichia Coli 09/21/16 18:10 Aerobic Blood Culture - Final Complete Blood Peripheral NO GROWTH IN 5 DAYS 09/21/16 18:10 Anaerobic Blood Culture - Final Complete Blood Peripheral NO GROWTH IN 5 DAYS Imaging Last Impressions Chest CT 09/25/16 0000 Signed Impressions: Service Date/Time: Sunday, September 25, 2016 16:26 - CONCLUSION: 1. Moderate bilateral pleural effusions with accompanying areas of suspected atelectasis or consolidation. 2. Focal sclerosis at the right L1 pedicle. This is nonspecific. Underlying causes that result in sclerotic lesions need to be considered. One could perform a bone scan to determine if there are any other sclerotic lesions. No other focal lesions are seen in the visualized bony structures. 3. Suspected minimal compression at the superior aspect of the T11 vertebral body. Alfredo Vidales MD Chest X-Ray 09/21/16 1604 Signed Impressions: Service Date/Time: September 16:09 - CONCLUSION: Small left pleural effusion with associated atelectasis and/or airspace consolidation in the left lower lobe. Alfredo Briones MD Physical Exam HEENT: PERRLA; normocephalic; atraumatic; no jaundice. NECK: Neck is supple, no JVD, no lymphadenopathy. CHEST: CTA CARDIAC: RRR with no murmur gallop or rubs. ABDOMEN: Soft, flat nondistended, nontender; no hepatosplenomegaly; bowel sounds x 4 quadrants. EXTREMITIES: No clubbing, cyanosis, or edema. SKIN: Normal; no rash; no jaundice. LABOR STANDARDS DIRECTOR: No focal deficits; A&O x3. (Diana Meek [facility]) Assessment and Plan Plan ASSESSMENT: - Severe anemia- GI was consulted for a drop in hgb to 6.6. HH stable today,8.9/ 25.8. Having diarrhea stools, declined a colonoscopy EGD done and showed esophagitis and gastritis. Hemoccult negative. No active bleeding reported. He denies nausea, vomiting, abdominal pain, hematochezia or melena. Last colonoscopy was years ago. He is not on any blood thinners. He drinks one beer a day. - Failure to thrive/ loss of appetite - Pneumonia, this is recurrent- abx - Hypoglycemia- per attending - Recent fall, broken shoulder- no plans for surgical intervention - DM, HTN per attending -Gastritis/esophagitis PLAN: -JACQUIE - continue PPI - Monitor HH - Transfuse as needed - F/U Bx - Supportive care Will sign off, patient refuses colonoscopy, can F/U outpatient for Bx results. Patient seen and examined by Dr. Mendez and myself and this note is written on his behalf. (Diana Meek) Physician Comments Seen and examined with ROSALES, refused colonoscopy . No active bleeding. Will sign off, reconsult as needed. GI fu upon dc. Thank you (Trina Mendez MD) Diana Meek Sep 26, 2016 15:00 Trina Mendez MD Sep 26, 2016 17:55
[2016-09-26] MEDS: AZITHROMYCIN INJ 500 MG in SODIUM CHLOR 0.9% 250 ML INJ 250 ML IV SCH (16:45)
[2016-09-27] VITALS (7 sets, daily range): BP systolic 100–130; BP diastolic 58–90; PULSE 79–96; RESP 18–22; TEMP 94.1–98.1; O2SAT 90–96
[2016-09-27] MEDS: PIPERACIL-TAZO 4.5 GM PREMIX 100 ML IV SCH (00:05)
[2016-09-27] MEDS: DEXTROSE 50% IN WATER 50 ML VIAL(D50) IV PUSH PRN ×3 (06:49→08:09)
[2016-09-27] MEDS: guaiFENesin E.R. 600 MG TAB PO SCH ×2 (08:44→20:48)
[2016-09-27] MEDS: CILOSTAZOL 100 MG TAB PO SCH ×2 (08:44→21:24)
[2016-09-27] MEDS: SODIUM CHLORIDE 0.9% FLUSH 5 ML FLUSH FLUSH SCH ×2 (08:44→20:48)
[2016-09-27] MEDS: BUDESONIDE-FORMOTEROL 160/4.5 MCG INHALER INH SCH ×2 (08:44→20:50)
[2016-09-27] MEDS: COLLAGENASE OINT 30 GM TUBE TOP SCH (08:44)
[2016-09-27] MEDS: MULTIVITAMIN TAB PO SCH (08:44)
[2016-09-27] MEDS: LEVOFLOXACIN 750 MG TAB PO SCH (08:44)
--- NOTE | 2016-09-27 12:23 | HHI.PR ---
Subjective Remarks Follow-up pneumonia and diarrhea. Denies shortness of breath tolerating room air. Complains of diarrhea already with 4 loose stools today no nausea, vomiting and abdominal pain. Discussed with RN and case management, patient of co-pay days. Can be discharged to SNF if patient willing to pay out of pocket. Hospice consult pending Objective Vitals Vital Signs Date Time Temp Pulse Resp B/P Pulse Ox O2 Delivery O2 Flow Rate FiO2 09/27/16 08:55 96 09/27/16 04:00 97.3 91 18 130/70 93 09/27/16 00:26 97.4 95 18 100/58 92 09/26/16 20:00 97.7 93 18 119/58 92 09/26/16 20:00 Nasal Cannula 2.00 09/26/16 20:00 103 09/26/16 18:34 98 Nasal Cannula 2.00 09/26/16 16:00 97.6 72 20 115/57 98 I/O 09/26/16 09/26/16 09/26/16 09/27/16 09/27/16 09/27/16 07:00 15:00 23:00 07:00 15:00 23:00 Intake Total 2000 ml 480 ml 360 ml 1809 ml Output Total 150 ml Balance 1850 ml 480 ml 360 ml 1809 ml Intake Oral 480 ml 360 ml IV Total 2000 ml 1809 ml Output Urine Total 150 ml # Voids 3 1 # Bowel Movements 3 10 Result Diagram: 09/24/16 0640 09/26/16 0721 Objective Remarks GENERAL: : Elderly, cachectic white male in no acute distress on room air. SKIN: No rashes, warm and dry HEAD: Atraumatic. Normocephalic. EYES: Pupils equal round and reactive. Extraocular motions intact. No scleral icterus. ENT: Nose without bleeding, or drainage, Airway patent. NECK: Trachea midline. Supple CARDIOVASCULAR: Regular rate and rhythm without murmurs, gallops, or rubs. RESPIRATORY: Fair air entry bilaterally. No wheezes, rales, or rhonchi. GASTROINTESTINAL: Abdomen soft, non-tender, nondistended. Positive bowel sounds MUSCULOSKELETAL: Extremities without clubbing, cyanosis, or edema. Pedal pulses appreciated NEUROLOGICAL: Awake alert with generalized weakness. Procedures egd A/P Problem List: (1) PNA (pneumonia) ICD Code: J18.9 Status: Acute (2) Hypoglycemia ICD Code: E16.2 Status: Acute (3) Failure to thrive in adult ICD Code: R62.7 Status: Acute (4) Anemia ICD Code: D64.9 Status: Acute (5) Tobacco abuse ICD Code: Z72.0 Status: Acute (6) DNR (do not resuscitate) ICD Code: Z66 Status: Acute Assessment and Plan Sepsis with leukocytosis, tachycardia and tachypnea. Improving. Blood and urine cultures growing Escherichia coli continue IV Zosyn 09/24 and Zithromax PNA: CXR w/ LLL consolidation, images reviewed by me, WBC 14.9, afebrile. S/p Blood Cultures negative to date, status post Rocephin/Zithro start Levaquin by mouth, continue DuoNeb prn, Symbicort, Mucinex. Stable on room air. Repeat chest x-ray in 6 weeks Hypoglycemia: Recent admit 08/29/16 for same, on Insulin per review of home meds , will hold. Likely secondary to malnutrition/FTT. Hgb A1c 6.9. Dc Accu- Cheks but continue to monitor fingersticks FTT: Chronic. S/p Nutrition Consult on last admit w/ recommendation for Glucerna and MVT, will resume both. PT recommends rehabilitation. Chest CT with moderate bilateral pleural effusions (patient tolerating room air and denies shortness of breath, will follow with thoracentesis), focal sclerosis of the right L1 pedicle may undergo bone scan outpatient (patient states he has a lesion his lower back for sometime now). Head CT and CT A/P without acute findings Acute on chronic Anemia: Doubt hemolysis with normal haptoglobin and bilirubin. Guaiac negative. EGD with esophagitis and gastritis. Continue PPI , antireflux mechanisms and polyp biopsy. GI consulted for colonoscopy but patient refusing, consider hematology consult r/o blood dyscrasia. I am concerned of underlying malignancy history of Whipple surgery Hypernatremia switched to hypotonic fluid. Repeat BMP and magnesium improved Discontinue Ward catheter Diarrhea. Start Lactinex and check C. difficile. IV fluids. If persistent diarrhea monitor for dehydration. Repeat BMP and magnesium in the morning Tobacco Abuse: Pt counselled, Ativan/NicoDerm prn if needed. DNR: Code Status confirmed, DNR order placed. DVT Prophylaxis: SCD/Teds. We will hold off with pharmacological prophylaxis secondary to anemia Discharge Planning Discharge if diarrhea improves Problem Qualifiers (1) Anemia: Qualified Code: D64.9 - Anemia, unspecified type Daryl Curtis MD Sep 27, 2016 12:23
[2016-09-27] MEDS: LACTOBACILLUS ACIDOPHILUS TAB PO SCH ×2 (14:56→18:16)
[2016-09-27] MEDS: NS + KCL 20 MEQ INJ 1,000 ML IV PRN (18:19)
[2016-09-28] VITALS (8 sets, daily range): BP systolic 94–154; BP diastolic 52–87; PULSE 20–106; RESP 18–60; TEMP 97.2–98.2; O2SAT 91–100
[2016-09-28] MEDS ORDERED: DEXTROSE 50% IN WATER 50 ML VIAL(D50) IV PUSH PRN (02:00)
[2016-09-28 08:33] LABS: AUTOMATED NEUTROPHIL # 8.9 TH/MM3 (1.8-7.7); BASOPHIL % 0.4 % (0.0-2.0); EOSINOPHIL % 0.4 % (0.0-4.0); HEMATOCRIT 28.4 % (39.0-51.0); LYMPH % 11.5 % (9.0-44.0); LYMPHOCYTE # 1.3 TH/MM3 (1.0-4.8); MEAN CELL VOLUME 92.8 FL (80.0-100.0); MEAN CORPUSCULAR HEMOGLOBIN 30.4 PG (27.0-34.0); MEAN CORPUSCULAR HGB CONC 32.7 % (32.0-36.0); MONO % 6.6 % (0.0-8.0); NEUT % 81.1 % (16.0-70.0); PLATELET COUNT 127 TH/MM3 (150-450); RED BLOOD COUNT 3.06 MIL/MM3 (4.50-5.90); RED CELL DISTRIBUTION WIDTH 25.6 % (11.6-17.2)
[2016-09-28] MEDS: LEVOFLOXACIN 750 MG TAB PO SCH (08:42)
[2016-09-28] MEDS: LACTOBACILLUS ACIDOPHILUS TAB PO SCH ×3 (08:42→17:34)
[2016-09-28] MEDS: COLLAGENASE OINT 30 GM TUBE TOP SCH (08:42)
[2016-09-28] MEDS: MULTIVITAMIN TAB PO SCH (08:42)
[2016-09-28] MEDS: guaiFENesin E.R. 600 MG TAB PO SCH ×2 (08:42→21:19)
[2016-09-28] MEDS: CILOSTAZOL 100 MG TAB PO SCH ×2 (08:42→21:19)
[2016-09-28] MEDS: BUDESONIDE-FORMOTEROL 160/4.5 MCG INHALER INH SCH ×2 (08:43→21:19)
[2016-09-28] MEDS: SODIUM CHLORIDE 0.9% FLUSH 5 ML FLUSH FLUSH SCH ×2 (08:43→21:00)
[2016-09-28 08:45] LABS: BICARBONATE 19.5 MEQ/L (21.0-32.0); MAGNESIUM 1.5 MG/DL (1.5-2.5)
[2016-09-28 08:54] LABS: HEMO FLAGS AUTO DIFF
[2016-09-28 08:58] LABS: POTASSIUM 3.4 MEQ/L (3.5-5.1)
[2016-09-28 09:53] LABS: BANDS 5 % (0-6); KERATOCYTES OCC (NORMAL); MYELOCYTES 1 % (0-0); NEUTROPHIL # MANUAL DIFF 9.6 TH/MM3 (1.8-7.7); POLYS (SEG NEUTROPHILS) 81 % (16-70); WBC DIFF SAMPLE 100
[2016-09-28 09:54] LABS: PLATELET ESTIMATE SMEAR LOW (NORMAL); PLATELET MORPHOLOGY NORMAL (NORMAL); SCAN/DIFF FINAL DIFF MANUAL
[2016-09-28] MEDS ORDERED: POTASSIUM CHLORIDE 10 MEQ CONTROLLED RELEASE TAB PO ONE (10:00)
--- NOTE | 2016-09-28 10:48 | HHI.PR ---
Subjective Remarks Follow-up pneumonia. Patient has no complaints he is alert and oriented speech difficult to understand because of loose dentures. Episode of confusion last night's and pulling out his IV. Discussed with RN Objective Vitals Vital Signs Date Time Temp Pulse Resp B/P Pulse Ox O2 Delivery O2 Flow Rate FiO2 09/28/16 09:37 Room Air 09/28/16 08:00 97.2 106 18 140/87 93 09/28/16 04:00 97.3 92 18 154/83 93 09/28/16 00:00 97.2 91 18 137/65 91 09/27/16 20:00 97.3 91 18 117/65 96 09/27/16 20:00 96 09/27/16 16:00 94.6 90 22 107/60 90 09/27/16 12:00 98.1 90 22 112/90 96 I/O 09/27/16 09/27/16 09/27/16 09/28/16 09/28/16 09/28/16 07:00 15:00 23:00 07:00 15:00 23:00 Intake Total 1809 ml 0 ml 100 ml 350 ml Balance 1809 ml 0 ml 100 ml 350 ml Intake Oral 0 ml 100 ml 50 ml IV Total 1809 ml 300 ml # Voids 0 1 # Bowel Movements 0 1 Result Diagram: 09/28/16 0712 09/28/16 0712 Imaging Last Impressions Chest CT 09/25/16 0000 Signed Impressions: Service Date/Time: Sunday, September 25, 2016 16:26 - CONCLUSION: 1. Moderate bilateral pleural effusions with accompanying areas of suspected atelectasis or consolidation. 2. Focal sclerosis at the right L1 pedicle. This is nonspecific. Underlying causes that result in sclerotic lesions need to be considered. One could perform a bone scan to determine if there are any other sclerotic lesions. No other focal lesions are seen in the visualized bony structures. 3. Suspected minimal compression at the superior aspect of the T11 vertebral body. Alfredo Vidales MD Chest X-Ray 09/21/16 1604 Signed Impressions: Service Date/Time: September 16:09 - CONCLUSION: Small left pleural effusion with associated atelectasis and/or airspace consolidation in the left lower lobe. Alfredo Briones MD Objective Remarks GENERAL: : Elderly, cachectic white male in no acute distress on room air. SKIN: No rashes, warm and dry HEAD: Atraumatic. Normocephalic. EYES: Pupils equal round and reactive. Extraocular motions intact. No scleral icterus. ENT: Nose without bleeding, or drainage, Airway patent. NECK: Trachea midline. Supple CARDIOVASCULAR: Regular rate and rhythm without murmurs, gallops, or rubs. RESPIRATORY: Fair air entry bilaterally. No wheezes, rales, or rhonchi. GASTROINTESTINAL: Abdomen soft, non-tender, nondistended. Positive bowel sounds MUSCULOSKELETAL: Extremities without clubbing, cyanosis, or edema. Pedal pulses appreciated NEUROLOGICAL: Awake alert with generalized weakness. Procedures egd A/P Problem List: (1) PNA (pneumonia) ICD Code: J18.9 Status: Acute (2) Hypoglycemia ICD Code: E16.2 Status: Resolved (3) Failure to thrive in adult ICD Code: R62.7 Status: Chronic (4) Anemia ICD Code: D64.9 Status: Acute (5) Tobacco abuse ICD Code: Z72.0 Status: Acute (6) DNR (do not resuscitate) ICD Code: Z66 Status: Acute Assessment and Plan Sepsis with leukocytosis, tachycardia and tachypnea. Improving. Blood and urine cultures growing Escherichia coli status post IV Zosyn 09/24 and Zithromax 09/22 PNA: CXR w/ LLL consolidation, images reviewed by me, WBC 14.9, afebrile. S/p Blood Cultures negative to date, status post Rocephin/Zithro continue Levaquin by mouth till October 04, DuoNeb prn, Symbicort, Mucinex. Stable on room air. Repeat chest x-ray in 6 weeks Hypoglycemia: Recent admit 08/29/16 for same, on Insulin per review of home meds , will hold. Secondary to malnutrition/FTT. Hgb A1c 6.9. Dc Accu-Cheks but continue to monitor fingersticks FTT: Chronic. S/p Nutrition Consult on last admit w/ recommendation for Glucerna and MVT, will resume both. PT recommends rehabilitation. Chest CT with moderate bilateral pleural effusions (patient tolerating room air and denies shortness of breath, will hold thoracentesis), focal sclerosis of the right L1 pedicle may undergo bone scan outpatient (patient states he has a lesion his lower back for sometime now). Head CT and CT A/P without acute findings Acute on chronic Anemia: Doubt hemolysis with normal haptoglobin and bilirubin. Guaiac negative. EGD with esophagitis and gastritis. Continue PPI , antireflux mechanisms and polyp biopsy. GI consulted for colonoscopy but patient refusing, consider hematology consult r/o blood dyscrasia. I am concerned of underlying malignancy history of Whipple surgery Hypernatremia switched to hypotonic fluid. Repeat BMP and magnesium improved Discontinue Ward catheter Diarrhea. Continue Lactinex and check C. difficile. IV fluids if persistent diarrhea monitor for dehydration. Repeat BMP and magnesium in the morning Tobacco Abuse: Pt counselled, Ativan/NicoDerm prn if needed. DNR: Code Status confirmed, DNR order placed. DVT Prophylaxis: SCD/Teds. We will hold off with pharmacological prophylaxis secondary to anemia Discharge Planning Stable for discharge pending placement. Patient out of co pay days per CM. Await Hospice eval requested by patient Problem Qualifiers (1) Anemia: Qualified Code: D64.9 - Anemia, unspecified type Daryl Curtis MD Sep 28, 2016 10:48
[2016-09-28 13:37] LABS: C. DIFF EPI 027 PRESUMPTIVE NEGATIVE (NEGATIVE); C. DIFF TOXIN PCR NEGATIVE (NEGATIVE)
[2016-09-28] MEDS: ACETAMINOPHEN/HYDROcodone 325 MG/5 MG TAB PO PRN (14:00)
[2016-09-28] MEDS: NS + KCL 20 MEQ INJ 1,000 ML IV PRN (21:19)
[2016-09-29] VITALS (8 sets, daily range): BP systolic 104–141; BP diastolic 55–73; PULSE 55–114; RESP 18–20; TEMP 97.1–99.2; O2SAT 91–95
[2016-09-29] MEDS: DEXTROSE 50% IN WATER 50 ML VIAL(D50) IV PUSH PRN ×2 (05:28→05:42)
[2016-09-29 07:58] LABS: BICARBONATE 20.6 MEQ/L (21.0-32.0); MAGNESIUM 1.6 MG/DL (1.5-2.5); POTASSIUM 3.7 MEQ/L (3.5-5.1)
[2016-09-29] MEDS ORDERED: SODIUM CHLOR 0.45% 1000 ML INJ 1,000 ML IV SCH (09:00)
[2016-09-29] MEDS: SODIUM CHLORIDE 0.9% FLUSH 5 ML FLUSH FLUSH SCH ×2 (09:00→21:00)
[2016-09-29] MEDS: BUDESONIDE-FORMOTEROL 160/4.5 MCG INHALER INH SCH ×2 (09:00→22:10)
[2016-09-29] MEDS: CILOSTAZOL 100 MG TAB PO SCH ×2 (11:11→22:09)
[2016-09-29] MEDS: LEVOFLOXACIN 750 MG TAB PO SCH (11:11)
[2016-09-29] MEDS: LACTOBACILLUS ACIDOPHILUS TAB PO SCH ×3 (11:11→17:26)
[2016-09-29] MEDS: MULTIVITAMIN TAB PO SCH (11:11)
[2016-09-29] MEDS: COLLAGENASE OINT 30 GM TUBE TOP SCH (11:11)
[2016-09-29] MEDS: guaiFENesin E.R. 600 MG TAB PO SCH ×2 (11:11→22:10)
[2016-09-29] MEDS: DEXT 5%-NACL 0.45% 1000 ML INJ 1,000 ML IV SCH ×2 (11:25→22:14)
[2016-09-29 17:33] LABS: BICARBONATE 22.4 MEQ/L (21.0-32.0); POTASSIUM 3.7 MEQ/L (3.5-5.1)
[2016-09-29 18:02] LABS: CALCIUM-PROTEIN CORRECTED 8.9 MG/DL (8.5-10.1)
[2016-09-30] VITALS: PULSE 95; RESP 20; TEMP 98.8; O2SAT 93
[2016-09-30 04:00] VITALS: BP 148/68; PULSE 105; RESP 18; TEMP 98.6; O2SAT 95
[2016-09-30] MEDS: DEXT 5%-NACL 0.45% 1000 ML INJ 1,000 ML IV SCH (05:00)
[2016-09-30] MEDS: LEVOFLOXACIN 750 MG TAB PO SCH (07:46)
[2016-09-30] MEDS: MULTIVITAMIN TAB PO SCH (07:47)
[2016-09-30] MEDS: guaiFENesin E.R. 600 MG TAB PO SCH (07:47)
[2016-09-30] MEDS: COLLAGENASE OINT 30 GM TUBE TOP SCH (07:48)
[2016-09-30] MEDS: BUDESONIDE-FORMOTEROL 160/4.5 MCG INHALER INH SCH (07:48)
[2016-09-30] MEDS: SODIUM CHLORIDE 0.9% FLUSH 5 ML FLUSH FLUSH SCH (07:48)
[2016-09-30] MEDS: CILOSTAZOL 100 MG TAB PO SCH (07:51)
[2016-09-30 08:00] VITALS: BP 115/68; PULSE 96; RESP 20; TEMP 97.9; O2SAT 93
[2016-09-30 08:27] LABS: BICARBONATE 21.6 MEQ/L (21.0-32.0); POTASSIUM 3.4 MEQ/L (3.5-5.1)
--- NOTE | 2016-09-30 08:43 | HHI.PR ---
Subjective Remarks Late entry, this progress note is for 09/29/16 Patient more lucid today, no complaints, denies any shortness of breath, still having loose stools. Objective Vitals Vital Signs Date Time Temp Pulse Resp B/P Pulse Ox O2 Delivery O2 Flow Rate FiO2 09/30/16 04:00 98.6 105 18 148/68 95 09/30/16 00:00 98.8 95 20 93 09/29/16 20:26 Nasal Cannula 2.00 09/29/16 20:00 114 09/29/16 20:00 99.2 106 18 108/55 94 09/29/16 18:02 93 Nasal Cannula 3.00 09/29/16 16:00 97.7 55 20 127/61 91 09/29/16 12:00 97.1 102 20 141/62 93 09/29/16 11:44 92 Nasal Cannula 3.00 09/29/16 11:00 Nasal Cannula 2.00 I/O 09/29/16 09/29/16 09/29/16 09/30/16 09/30/16 09/30/16 07:00 15:00 23:00 07:00 15:00 23:00 Intake Total 322 ml 0 ml 120 ml Output Total 350 ml 650 ml 900 ml 150 ml Balance -28 ml -650 ml -900 ml -30 ml Intake Oral 0 ml 0 ml 120 ml IV Total 322 ml Output Urine Total 350 ml 650 ml 900 ml 150 ml # Bowel Movements 0 0 Result Diagram: 09/28/16 0712 09/30/16 0658 Objective Remarks GENERAL: : Elderly, cachectic white male in no acute distress on room air. SKIN: No rashes, warm and dry HEAD: Atraumatic. Normocephalic. EYES: Pupils equal round and reactive. Extraocular motions intact. No scleral icterus. ENT: Nose without bleeding, or drainage, Airway patent. NECK: Trachea midline. Supple CARDIOVASCULAR: Regular rate and rhythm without murmurs, gallops, or rubs. RESPIRATORY: Fair air entry bilaterally. No wheezes, rales, or rhonchi. GASTROINTESTINAL: Abdomen soft, non-tender, nondistended. Positive bowel sounds MUSCULOSKELETAL: Extremities without clubbing, cyanosis, or edema. Pedal pulses appreciated NEUROLOGICAL: Awake, alert, oriented to self and place, with generalized weakness. Procedures egd A/P Problem List: (1) PNA (pneumonia) ICD Code: J18.9 Status: Acute (2) Hypoglycemia ICD Code: E16.2 Status: Resolved (3) Failure to thrive in adult ICD Code: R62.7 Status: Chronic (4) Anemia ICD Code: D64.9 Status: Acute (5) Tobacco abuse ICD Code: Z72.0 Status: Acute (6) DNR (do not resuscitate) ICD Code: Z66 Status: Acute Assessment and Plan Sepsis with leukocytosis, tachycardia and tachypnea. Improving. Blood and urine cultures growing Escherichia coli status post IV Zosyn 09/24 and Zithromax 09/22 PNA: CXR w/ LLL consolidation, images reviewed by me, WBC 14.9, afebrile. S/p Blood Cultures negative to date, status post Rocephin/Zithro continue Levaquin by mouth till October 04, DuoNeb prn, Symbicort, Mucinex. Stable on room air. Repeat chest x-ray in 6 weeks Hypoglycemia: Recent admit 08/29/16 for same, on Insulin per review of home meds , will hold. Secondary to malnutrition/FTT. Hgb A1c 6.9. Dc Accu-Cheks but continue to monitor fingersticks, start D5 half-normal saline FTT: Chronic. S/p Nutrition Consult on last admit w/ recommendation for Glucerna and MVT, will resume both. PT recommends rehabilitation. Chest CT with moderate bilateral pleural effusions (patient tolerating room air and denies shortness of breath, will hold thoracentesis), focal sclerosis of the right L1 pedicle may undergo bone scan outpatient (patient states he has a lesion his lower back for sometime now). Head CT and CT A/P without acute findings Acute on chronic Anemia: Doubt hemolysis with normal haptoglobin and bilirubin. Guaiac negative. EGD with esophagitis and gastritis. Continue PPI , antireflux mechanisms and polyp biopsy. GI consulted for colonoscopy but patient refusing, consider hematology consult r/o blood dyscrasia. Hypernatremia-start D5 half normal saline, check BMP tomorrow Poor Oral intake-start D5 Discontinue Ward catheter Diarrhea. Continue Lactinex and check C. difficile. IV fluids if persistent diarrhea monitor for dehydration. Repeat BMP and magnesium in the morning Tobacco Abuse: Pt counselled, Ativan/NicoDerm prn if needed. DNR: Code Status confirmed, DNR order placed. DVT Prophylaxis: SCD/Teds. We will hold off with pharmacological prophylaxis secondary to anemia Discussed with hospice, possible hospice tomorrow. POA assigned Problem Qualifiers (1) Anemia: Qualified Code: D64.9 - Anemia, unspecified type Aleena Mackay MD Sep 30, 2016 08:43
[2016-09-30] MEDS ORDERED: LACT PO (08:59)
[2016-09-30] MEDS: LACTOBACILLUS ACIDOPHILUS TAB PO SCH ×2 (09:00→13:00)
--- NOTE | 2016-09-30 09:01 | HHI.DS ---
Discharge Summary Admission Date Sep 23, 2016 at 15:01 Discharge Date: Sep 30, 2016 Admitting Diagnosis pneumonia, hypoglycemia, failure to thrive (1) PNA (pneumonia) ICD Code: J18.9 Diagnosis: Principal (2) Hypoglycemia ICD Code: E16.2 Diagnosis: Principal (3) Failure to thrive in adult ICD Code: R62.7 Diagnosis: Principal (4) Anemia ICD Code: D64.9 Diagnosis: Principal (5) Tobacco abuse ICD Code: Z72.0 Diagnosis: Secondary (6) DNR (do not resuscitate) ICD Code: Z66 Diagnosis: Secondary Procedures egd Brief History - From Admission This is an 81-year-old DNR male with a PMH of HTN, COPD, CAD, AGDAAGUX, Hepatitis A/B , Tobacco Abuse, DM and FTT who was brought to the ER by EMS secondary to generalized weakness while at Orthopedist's office. Upon EMS arrival, BS noted to be 65, s/p D50, BS 55 upon arrival to ER. Pt poor historian, but denies complaints at this time. Recent admit 08/29-09/01/16 for hypokalemia, hypoglycemia and FTT, d/c'd to Rehab facility. On 09/02/16 pt had mechanical fall at Rehab Facility, sent to ER for evaluation, Shoulder X-ray positive for Left Prox Humerus fx and referred to Ortho as outpatient. Seen in office today at which time pt complained of weakness, EMS called from office. On arrival, BP 103/62, HR 83, O2 sat 100% on 2L NC, Afebrile. WBC 14.9. Hgb 9.3, previously 9.6 on 09/10/16, 12.4 on 08/30/16. BS 46. Lactic Acid 1.6. CXR with small left pleural effusion and or consolidation in LLL. S/p Rocephin/Zithro in ER. CBC/BMP: 09/28/16 0712 09/30/16 0658 Significant Findings Laboratory Tests Test 09/28/16 09/29/16 09/29/16 09/30/16 07:12 06:39 16:34 06:58 Red Blood Count 3.06 MIL/MM3 (4.50-5.90) Hemoglobin 9.3 GM/DL (13.0-17.0) Hematocrit 28.4 % (39.0-51.0) Red Cell Distribution Width 25.6 % (11.6-17.2) Platelet Count 127 TH/MM3 (150-450) Neutrophils (%) (Auto) 81.1 % (16.0-70.0) Neutrophils # (Auto) 8.9 TH/MM3 (1.8-7.7) Neutrophils % (Manual) 81 % (16-70) Neutrophils # (Manual) 9.6 TH/MM3 (1.8-7.7) Myelocytes 1 % (0-0) Platelet Estimate LOW (NORMAL) Sodium Level 147 MEQ/L 150 MEQ/L 150 MEQ/L 149 MEQ/L (136-145) (136-145) (136-145) (136-145) Potassium Level 3.4 MEQ/L 3.4 MEQ/L (3.5-5.1) (3.5-5.1) Chloride Level 117 MEQ/L 122 MEQ/L 122 MEQ/L 121 MEQ/L (98-107) (98-107) (98-107) (98-107) Carbon Dioxide Level 19.5 MEQ/L 20.6 MEQ/L (21.0-32.0) (21.0-32.0) Calcium Level 8.0 MG/DL 7.8 MG/DL 7.4 MG/DL 7.2 MG/DL (8.5-10.1) (8.5-10.1) (8.5-10.1) (8.5-10.1) Random Glucose 126 MG/DL (74-106) Total Protein 4.5 GM/DL (6.4-8.2) PE at Discharge GENERAL: : Elderly, cachectic white male in no acute distress on room air. SKIN: No rashes, warm and dry HEAD: Atraumatic. Normocephalic. EYES: Pupils equal round and reactive. Extraocular motions intact. No scleral icterus. ENT: Nose without bleeding, or drainage, Airway patent. NECK: Trachea midline. Supple CARDIOVASCULAR: Regular rate and rhythm without murmurs, gallops, or rubs. RESPIRATORY: Fair air entry bilaterally. No wheezes, rales, or rhonchi. GASTROINTESTINAL: Abdomen soft, non-tender, nondistended. Positive bowel sounds MUSCULOSKELETAL: Extremities without clubbing, cyanosis, or edema. Pedal pulses appreciated NEUROLOGICAL: Awake, alert, oriented to self and place, with generalized weakness. Hospital Course Sepsis with leukocytosis, tachycardia and tachypnea. Improving. Blood and urine cultures growing Escherichia coli status post IV Zosyn 09/24 and Zithromax 09/22 PNA: CXR w/ LLL consolidation, images reviewed by me, WBC 14.9, afebrile. S/p Blood Cultures negative to date, status post Rocephin/Zithro continue Levaquin by mouth till October 04, DuoNeb prn, Symbicort, Mucinex. Stable on room air. Repeat chest x-ray in 6 weeks Hypoglycemia: Recent admit 08/29/16 for same, on Insulin per review of home meds , will hold. Secondary to malnutrition/FTT. Hgb A1c 6.9. Dc Accu-Cheks but continue to monitor fingersticks, start D5 half-normal saline FTT: Chronic. S/p Nutrition Consult on last admit w/ recommendation for Glucerna and MVT, will resume both. PT recommends rehabilitation. Chest CT with moderate bilateral pleural effusions (patient tolerating room air and denies shortness of breath, will hold thoracentesis), focal sclerosis of the right L1 pedicle may undergo bone scan outpatient (patient states he has a lesion his lower back for sometime now). Head CT and CT A/P without acute findings Acute on chronic Anemia: Doubt hemolysis with normal haptoglobin and bilirubin. Guaiac negative. EGD with esophagitis and gastritis. Continue PPI , antireflux mechanisms and polyp biopsy. GI consulted for colonoscopy but patient refusing, consider hematology consult r/o blood dyscrasia. Hypernatremia-start D5 half normal saline, check BMP tomorrow Poor Oral intake-start D5 Diarrhea. Continue Lactinex, C. difficile negative. DNR: Code Status confirmed, DNR order placed. DVT Prophylaxis: SCD/Teds. We will hold off with pharmacological prophylaxis secondary to anemia Patient wanted to go to hospice. Attempted to hospice, patient will be discharged to hospice center. Pt Condition on Discharge: Deteriorating Discharge Disposition: Hospice/Med Facility Discharge Time: > 30 minutes Discharge Instructions DIET: Follow Instructions for: As Tolerated, No Restrictions Speech Therapy-Diet Recommends: Mechanical Soft, Chopped Meat w/Gravy Activities you can perform: Regular-No Restrictions Activities to Avoid: Driving Aleena Mackay MD Sep 30, 2016 09:01
[2016-09-30 09:11] LABS: CALCIUM-PROTEIN CORRECTED 8.5 MG/DL (8.5-10.1)
[2016-09-30 12:00] VITALS: BP 125/104; PULSE 97; RESP 20; TEMP 97.6; O2SAT 94
[2016-09-30 12:47] VITALS: O2SAT 97
[2016-09-30 14:00] VITALS: BP 115/70
--- NOTE | 2016-10-27 16:25 | PQ ---
Physician Query Response Document PATIENT: MABEL SHER : 1935 ADMIT DATE: 09/23/2016 3:01 PM DISCH DATE: 09/30/2016 4:45 PM RESPONDING PROVIDER #: Emily QUERY TEXT: Nutritional Deficiency Clarification There are clinical indicators and dietary orders noted in the Medical Record regarding nutritional st atus. Please provide a nutritional diagnosis if able to further specify. ?Malnutrition: ____ mild ____moderate ____severe ____unspecified protein calorie ?Underweight ?Cachexia ?Emaciation ?Anorexia ?Other Specify ?Unable to determine (please explain) The patient's Clinical Indicators include: failure to thrive / nutrition consult BMI 19 albumin 1.6 t protein 4.6 Query created by: Asia Padilla on 09/24/2016 3:34 PM RESPONSE TEXT: Moderate protein calorie malnutrition Electronically signed by: Daryl Curtis MD 10/27/2016 4:20 PM
== END 2016-09-30 16:45 | disposition hospice, inpatient (51) | DRG 871 ==
LOC: NEPC 15:52 → NEDA 17:54 → NEDH 17:54 → INTOOBSV 17:54 → UNDOADMOB 17:54 → NEDH 22:28 → N04B 09-22 11:44 → OBSVTOIN 09-23 15:01
PROVIDERS: ADMIT Hospitalist; ATTEND Hospitalist
PROC: 30233N1 Transfusion of Nonautologous Red Blood Cells into Peripheral Vein, Percutaneous Approach (ICD-10-PCS; principal; 2016-09-23)
PROC: 0DB68ZX Excision of Stomach, Via Natural or Artificial Opening Endoscopic, Diagnostic (ICD-10-PCS; 2016-09-25)
PROC: 0DB58ZX Excision of Esophagus, Via Natural or Artificial Opening Endoscopic, Diagnostic (ICD-10-PCS; 2016-09-25)
DX: A41.9 Sepsis, unspecified organism (principal); J18.9 Pneumonia, unspecified organism; J90 Pleural effusion, not elsewhere classified; E44.0 Moderate protein-calorie malnutrition; J44.0 Chronic obstructive pulmonary disease with (acute) lower respiratory infection; E11.649 Type 2 diabetes mellitus with hypoglycemia without coma; N39.0 Urinary tract infection, site not specified; S42.202A Unspecified fracture of upper end of left humerus, initial encounter for closed fracture; D64.9 Anemia, unspecified; B19.10 Unspecified viral hepatitis B without hepatic coma; B15.9 Hepatitis A without hepatic coma; E87.1 Hypo-osmolality and hyponatremia; R62.7 Adult failure to thrive; Z66 Do not resuscitate; F17.200 Nicotine dependence, unspecified, uncomplicated; B96.20 Unspecified Escherichia coli [E. coli] as the cause of diseases classified elsewhere; K29.70 Gastritis, unspecified, without bleeding; W19.XXXA Unspecified fall, initial encounter; R19.7 Diarrhea, unspecified; K20.8 Other esophagitis; Z79.4 Long term (current) use of insulin; I10 Essential (primary) hypertension; I25.10 Atherosclerotic heart disease of native coronary artery without angina pectoris; E78.00 Pure hypercholesterolemia, unspecified; F17.210 Nicotine dependence, cigarettes, uncomplicated; R55 Syncope and collapse
CPT/HCPCS: 36430; 71010; 71250; 80048; 80053; 81001; 82272; 82607; 82728; 82746; 82948; 83010; 83036; 83540; 83605; 83615; 83735; 84132; 84155; 84466; 84484; 85007; 85014; 85018; 85025; 85027; 86850; 86900; 86901; 86920; 87040; 87077; 87086; 87186; 87205; 87493; 88305; 88312; 93005; 96361; 96374; G0378; G8987-GP; G8988-GP; J0456; J0696; J1815; J1940; J2270; J2543; J3480; J7030; J7040; J7050; P9016